=== PATIENT | female | born 1930 | race Caucasian/White ===

== ENCOUNTER 2016-10-26 06:08 | Inpatient (IN) ==
--- NOTE | 2016-10-25 21:03 | Discharge Summary ---
<Zoila Berrios - Last Filed: 10/25/16 21:00> Date of Encounter: 10/25/16 - Discharge Diagnosis (1) Left rotator cuff tear arthropathy Priority: Primary Status: Acute (2) Atrial fibrillation with rapid ventricular response Priority: Secondary Status: Chronic (3) HTN (hypertension) Priority: Secondary Status: Chronic Qualifiers: Hypertension type: essential hypertension (4) COPD bronchitis Priority: Secondary Status: Chronic (5) Chronic back pain Priority: Secondary Status: Chronic Qualifiers: Back pain location: back pain in unspecified location Back pain laterality : unspecified Qualified Code(s): M54.9 - Dorsalgia, unspecified; G89.29 - Other chronic pain (6) Systolic and diastolic CHF, chronic Priority: Secondary Status: Chronic - Discharge Medications Home Medications: Allopurinol [Zyloprim] 300 mg PO DAILY 03/23/15 [History] Cholecalciferol (Vitamin D3) [Vitamin D] 1,000 unit PO DAILY 03/23/15 [History] predniSONE [PredniSONE] 10 mg PO DAILY 03/23/15 [History] Amiodarone [Cordarone] 200 mg PO DAILY #30 tablet 04/21/15 [Rx] Albuterol Sulfate [Proair Respiclick] 2 puff IH Q4HR PRN 06/27/15 [History] Glucosamine Sulfate Dipot Chlr [Glucosamine] 500 mg PO DAILY 06/27/15 [History] Aspirin [Adult Low Dose Aspirin EC] 81 mg PO DAILY #30 tablet. 06/29/15 [Rx] Atorvastatin [Lipitor] 40 mg PO HS #30 tablet 06/29/15 [Rx] Budesonide/Formoterol 160/4.5 [Symbicort 160/4.5] 2 puff IH BIDR 09/04/15 [ History] Ipratropium/Albuterol Neb [Duoneb] 3 ml IH Q4HR PRN 09/04/15 [History] Furosemide [Lasix] 20 mg PO DAILY 10/30/15 [History] Potassium Chloride [K-Tab ER] 20 meq PO BID 10/30/15 [History] Multivitamin/Iron/Folic Acid [Centrum Complete Multivit Tab] 1 each PO DAILY [History] Docusate Sodium [Colace] 100 mg PO BID 04/20/16 [History] Ferrous Gluconate 324 mg PO BID 04/20/16 [History] Gabapentin [Neurontin] 300 mg PO 1200 04/20/16 [History] Levothyroxine Sodium [Levoxyl] 100 mcg PO DAILY 04/20/16 [History] Losartan/HCTZ [Hyzaar 50-12.5 Tablet] 1 each PO BID 04/20/16 [History] Rivaroxaban [Xarelto] 15 mg PO DAILY #0 04/21/16 [Rx] OxyCODONE Immed Rel [Roxicodone 5 MG] 5 - 10 mg PO Q6HR PRN #40 tablet 10/25/16 [Rx] Allergies/Adverse Reactions: Allergies No Known Allergies Allergy (Verified 04/20/16 09:57) Primary care physician: Tye Arellano MD - Patient Status Disposition: Home, Self-Care Condition: Good - Discharge Instructions Follow Up With: Tye Arellano MD [Primary Care Provider] - - Hospital Course Hospital course: Ms. Jay is a 86 year old female - Time Spent with Patient Total time spent providing and/or coordinating discharge services: <Ted Hopper - Last Filed: 10/27/16 06:16> Date of Encounter: 10/27/16 Time of Encounter: 06:15 - Discharge Diagnosis (1) HTN (hypertension) Priority: Secondary Status: Chronic Qualifiers: Hypertension type: unspecified secondary hypertension Qualified Code(s): I15.9 - Secondary hypertension, unspecified; I15 - Secondary hypertension (2) COPD bronchitis Priority: Secondary Status: Chronic (3) Left bundle branch block Priority: Secondary Status: Acute (4) Atrial fibrillation Priority: Secondary Status: Chronic Qualifiers: Atrial fibrillation type: unspecified Qualified Code(s): I48.91 - Unspecified atrial fibrillation (5) Systolic and diastolic CHF, acute on chronic Priority: Secondary Status: Chronic (6) Left rotator cuff tear arthropathy Priority: Primary Status: Acute Primary care physician: Tye Arellano MD - Patient Status Functional capacity at discharge: independent ambulation Overall status at discharge: patient is progressing back to baseline - Hospital Course Hospital course: Ms. Jay is a 86 year old female The patient had an uneventful postoperative course. They received antibiotics and physical therapy and were discharged in stable condition. There will follow -up in the office in 2 weeks. - Time Spent with Patient Total time spent providing and/or coordinating discharge services:
[2016-10-26] MEDS ORDERED: Albuterol 2.5 MG/3 ML NEBULIZER IH ONE ×2 (06:22→08:21)
[2016-10-26] MEDS ORDERED: CeFAZolin Pre 2,000 MG/100 ML 2,000 MG/100 ML BAG IVPB ONE (06:22)
[2016-10-26] MEDS ORDERED: Lidocaine -MPF 1% 2 ML VIAL ID ONE (06:22)
[2016-10-26] MEDS ORDERED: Ringers Solution, Lactated 1,000 ML IVC SCH ×3 (06:30→09:39)
--- NOTE | 2016-10-26 06:44 | History & Physical Report ---
Date of Encounter: 10/26/16 Time of Encounter: 06:44 24 Hour HP Update - Instructions Instructions: If the History and Physical is less than 30 days old and was completed prior to A.M. admission and or procedure and has NOT been updated on calendar day of procedure please complete this update prior to performing procedure. - Update Patient reports changes in Medical Condition: No Changes in examination, assessment, or condition: No Changes in Medication: No Preop tests/diagnostics Reviewed: Yes Surgery Remains Indicated: Yes Consent for Planned Operative Procedure(s) Verified: Yes - Pre-Operative Checklist Preoperative Checklist Indicated: No Prophylactic Antibiotic Ordered: Yes Is VTE Prophylaxis Indicated?: Yes
[2016-10-26] MEDS ORDERED: Famotidine 20 MG/2 ML VIAL IVP ONE (06:51)
[2016-10-26] MEDS ORDERED: Acetaminophen IV 1,000 MG/100 ML INFUS..BTL IVPB ONE (06:52)
[2016-10-26] MEDS ORDERED: Gabapentin 300 MG CAPSULE PO ONE (06:52)
[2016-10-26] MEDS ORDERED: *HR* Succinylcholine 200 MG/10 ML VIAL IVP ONE (06:56)
[2016-10-26] MEDS ORDERED: *HR* Phenylephrine 10 MG/ML VIAL ONE (06:56)
[2016-10-26] MEDS ORDERED: *HR* Rocuronium Bromide 50 MG/5 ML VIAL ONE (06:56)
[2016-10-26] MEDS ORDERED: Lidocaine -MPF 4% 5 ML AMPUL ONE (06:56)
[2016-10-26] MEDS ORDERED: EPHEDrine 50 MG/ML VIAL ONE (06:58)
[2016-10-26] MEDS ORDERED: Lidocaine -MPF 2% 2 ML VIAL ONE (07:01)
[2016-10-26] MEDS ORDERED: *HR* FentaNYL (PF) 100 MCG/2 ML VIAL ONE (07:01)
[2016-10-26] MEDS ORDERED: *HR* Propofol 200 MG/20 ML VIAL IVP ONE (07:02)
[2016-10-26] MEDS ORDERED: *HR* Midazolam HCl 2 MG/2 ML VIAL ONE (07:02)
--- NOTE | 2016-10-26 07:15 | Anesthesia Evaluation PreOp ---
Date of Encounter: 10/26/16 Time of Encounter: 07:10 - Past History Planned Operation: Left Total Shoulder Replacement Cardiac History: HTN, Hyperlipidemia, Pacemaker/ICD (Last checked ), Other (Ischemic Cardiomyopathy EF 25%) Pulmonary History: COPD (Home oxygen) PROMOTIONS OFFICER History: Denies Any Significant HX Other Medical History: Denies Any Significant HX Anesthesia History: No Prior Anesthetic Complications : No Alcohol Use: none Drug use: none Medications and Allergies Allopurinol [Zyloprim] 300 mg PO DAILY 03/23/15 [History] Cholecalciferol (Vitamin D3) [Vitamin D] 1,000 unit PO DAILY 03/23/15 [History] predniSONE [PredniSONE] 10 mg PO DAILY 03/23/15 [History] Amiodarone [Cordarone] 200 mg PO DAILY #30 tablet 04/21/15 [Rx] Albuterol Sulfate [Proair Respiclick] 2 puff IH Q4HR PRN 06/27/15 [History] Gabapentin [Neurontin] 600 mg PO BID PRN 06/27/15 [History] Glucosamine Sulfate Dipot Chlr [Glucosamine] 500 mg PO DAILY 06/27/15 [History] Aspirin [Adult Low Dose Aspirin EC] 81 mg PO DAILY #30 tablet. 06/29/15 [Rx] Atorvastatin [Lipitor] 40 mg PO HS #30 tablet 06/29/15 [Rx] Budesonide/Formoterol 160/4.5 [Symbicort 160/4.5] 2 puff IH BIDR 09/04/15 [ History] Ipratropium/Albuterol Neb [Duoneb] 3 ml IH Q4HR PRN 09/04/15 [History] Furosemide [Lasix] 20 mg PO DAILY 10/30/15 [History] Potassium Chloride [K-Tab ER] 20 meq PO BID 10/30/15 [History] Multivitamin/Iron/Folic Acid [Centrum Complete Multivit Tab] 1 each PO DAILY [History] Docusate Sodium [Colace] 100 mg PO BID 04/20/16 [History] Ferrous Gluconate 324 mg PO BID 04/20/16 [History] Gabapentin [Neurontin] 300 mg PO 1200 04/20/16 [History] Levothyroxine Sodium [Levoxyl] 100 mcg PO DAILY 04/20/16 [History] Losartan/HCTZ [Hyzaar 50-12.5 Tablet] 1 each PO BID 04/20/16 [History] Rivaroxaban [Xarelto] 15 mg PO DAILY #0 04/21/16 [Rx] OxyCODONE Immed Rel [Roxicodone 5 MG] 5 - 10 mg PO Q6HR PRN #40 tablet 10/25/16 [Rx] Allergies No Known Allergies Allergy (Verified 04/20/16 09:57) - Meds/Allergy Pre-op Review Medications Reviewed: Yes Allergies Reviewed: Yes Beta Blockers on Current Med List: No Anesthesia Results - Labs Laboratory Tests 10/12/16 10/12/16 15:31 15:31 Hgb 11.7 Hct 37.4 Plt Count 200 Sodium 142 Potassium 4.2 BUN 16 Creatinine 1.06 - Imaging EKG: report reviewed (Sinus Lennox) Anesthesia Exam O2 Sat Height 1.65 m Height 1.65 m Height 1.65 m Weight 74.843 kg Weight 74.843 kg Weight 74.843 kg O2 Sat by Pulse Oximetry 100 O2 Sat by Pulse Oximetry 100 O2 Sat by Pulse Oximetry 100 Vital Signs Temp Pulse Resp BP Pulse Ox 98.9 F 60 18 152/75 100 10/26/16 06:33 10/26/16 06:33 10/26/16 06:33 10/26/16 06:33 10/26/16 06:33 Height: 5'5 Weight: 165 lbs NPO (# of Hours): MN Pain Scale: 0 - HEENT Pupil (Motor): Pupils equal, EOMI Mallampati: III Teeth: Edentulous Oral Opening: Less than or equal to 3 - PROMOTIONS OFFICER LOC: Oriented PROMOTIONS OFFICER Motor: Normal RUE, Normal LUE, Normal RLE, Normal LLE, Normal Face PROMOTIONS OFFICER Sensory: Normal: RUE, LUE, RLE, LLE, Face - Cardiac Rhythm: Regular Murmur: None JVD: No Carotid Bruit: No - Pulmonary Breath Sounds: bilateral Clear Respiratory Effort: Symmetrical Anesthesia Assess/Plan ASA Score: 4 (Cardiomyopathy, COPD) Modified [place] Scale for Level of Consciousness: Cooperative, oriented, and tranquil Anesthetic Plan: General, Regional Monitoring Plan: Standard Monitors Recovery Plan: PACU (Discussed GA and RA, agrees to proceed)
[2016-10-26] MEDS ORDERED: Bupivacaine/Clonidine Syringe 1 EACH SYRINGE ONE (07:20)
[2016-10-26] MEDS ORDERED: Tetracaine/PF 20 MG/2 ML AMPUL ONE (07:24)
[2016-10-26] MEDS ORDERED: ROPIVACAINE HCL/PF 0.5% 30 ML VIAL ONE (07:24)
[2016-10-26] MEDS ORDERED: Ondansetron 4 MG/2 ML VIAL ONE (07:57)
[2016-10-26] MEDS ORDERED: Dexamethasone 4 MG/ML VIAL ONE (07:57)
--- NOTE | 2016-10-26 08:19 | Anesthesia Procedures ---
Date of Encounter: 10/26/16 Time of Encounter: 08:17 Procedures: Anesthesia - Nerve Block Procedure Date: 10/26/16 Time: 08:17 Allergies/Adv Reactions: nka Surgical Procedure: left tsr reverse Checklist: Correct Patient Identifier, Correct procedure, History checked Correct side: Left Blood Thinner: No Monitor Applied: EKG, BP, Pulse Oximetry Supplemental Oxygen via Nasal Cannula (L/min): 2 Sedation: Versed (mg): 1 Sedation: Fentanyl (mcg): 50 Indication: Post Op Analgesia Pre-op Neuro Deficits: No Block Type: Supraclavicular (scp/icb) Catheter placed: No Sterile Technique: Yes Ultrasound used: Yes Anatomy identified: Yes Visual spread of Local: Yes Neuro Stimulation: No Blood on Needle Aspiration: No Smooth Injection of Local: Yes Pain with Injection of Local: No Prep: Chlorhexadine Needle: 22 x 50 mm Stimuplex Local: Tetracaine, Ropivacaine (0.5%) Volume (cc): 30 Number of Attempts: 1 Complications: None/effective block Vitals: Vital Signs/O2 Sat/Glucose, Most Current Temp Pulse Resp BP Pulse Ox 10/26/16 06:36 98.9 F 60 18 152/75 100 10/26/16 06:33 98.9 F 60 18 152/75 100 Comments: pt tolerated procedure well. no complications. vss.
[2016-10-26] MEDS ORDERED: Naloxone 0.4 MG/ML INJ IVP PRN ×2 (08:21→09:39)
[2016-10-26] MEDS ORDERED: Ondansetron 4 MG/2 ML VIAL IVP ONE (08:21)
[2016-10-26] MEDS ORDERED: *HR* Labetalol 100 MG/20 ML MDV IVP PRN (08:21)
[2016-10-26] MEDS ORDERED: *HR* Meperidine 25 MG/ML SYRINGE IVP PRN (08:21)
[2016-10-26] MEDS ORDERED: *HR* HYDROmorphone (PF) 1 MG/ML SYRINGE IVP PRN ×2 (08:21→09:39)
--- NOTE | 2016-10-26 08:39 | Orthopedic Operative Note ---
Date of procedure: 10/26/16 Pre-op diagnosis: Left shoulder cuff tear arthropathy Post-op diagnosis: same Procedure: Procedure: Left Total Shoulder Replacment Reverse, Estimated blood loss: 100 cc Hardware: Metal and polyethylene replacement: Arthrex small glenoid baseplate, 2 4.5 screws. 1 6.5 screw, 36+4 glenosphere, 10 humeral stem, poly insert +3 Exam Under anesthesia: Full motion no instability Procedural Notes: Grade 4 arthritic changes humeral head glenoid socket irreparable tear subscap supraspinatus and infraspinatus Operative procedure: The patient was brought to the operating room and placed on the operating room table. After general anesthesia was administered the operative shoulder was examined. Findings were noted. The patient was placed in the modified beachchair position. All pressure points were padded appropriately. And the head was stabilized in the neutral position. The operative extremity was prepped and draped in the sterile surgical fashion. The patient received IV antibiotics prior to skin incision. A standard deltopectoral approach was made to the operative shoulder. Incision was made to the skin and subcutaneous tissue,hemo stasis was obtained with Bovie cautery. Using careful blunt dissection the cephalic vein was identified and mobilized medially. The deltopectoral interval was developed and the clavipectoral fascia was incised. The subscap torn and irreparable The humerus was dislocated patient noted to have irreparable tear supraspinatus tendon, and the humeral cut was made along the anatomic neck. Patient had grade 4 arthritic changes humeral head. Anterior and posterior Bankart retractors were placed to expose the glenoid. Patient had grade 4 arthritic changes glenoid socket. The glenoid guide was seated and the centering hole was made. It was reamed with the appropriate reamer. The small baseplate was seated and secured with (2) 4.5 screws and one 6.5 screw. The baseplate was irrigated and dried and the 36+4 Glenosphere was seated and secured with the Flores taper. The Flores taper was tested and found to be secure the humerus was redislocated and prepared with the diaphyseal reamers, followed by a broaching process up to the appropriate size 10 in the patient's anatomic version. The metaphyseal reamer was then utilized. Trial reduction found the shoulder to be relocatable. Trial components were removed. The appropriate 10 stem was impacted in place in the patient's anatomic version. Trial reduction found the shoulder to be relocatable and stable with the appropriate 3 Trial component was removed and the real implant was seated and secured the shoulder was reduced. The shoulder had excellent motion and excellent stability and no evidence of dislocation. The deep tissue was irrigated with pulse irrigation. The deltopectoral interval was closed with a running #1 PDS suture, subcutaneous tissue was irrigated and closed with 0 PDS suture, the skin was closed with skin jessica The patient was placed in a sterile dressing, abduction brace and extubated. The patient was then transferred to the recovery room in stable condition. Anesthesia: OLGA Surgeon: Ted Hopper Exercise Instructor: Zoila Berrios Condition: stable Disposition: PACU
[2016-10-26 09:21] LABS: Hematocrit 33.5 % (35.3-44.9); Hemoglobin 10.4 g/dL (11.5-15.4)
[2016-10-26] MEDS ORDERED: *HR* OxyCODONE Immed Rel 5 MG TABLET PO PRN ×2 (09:39)
[2016-10-26] MEDS ORDERED: MOM Conc 10 ML UD.LIQ PO PRN (09:39)
[2016-10-26] MEDS ORDERED: ceFAZolin 2,000 MG in D5% in Water 100 ML IVPB SCH (09:39)
[2016-10-26] MEDS ORDERED: Sennosides 8.6 MG TABLET PO PRN (09:39)
[2016-10-26] MEDS ORDERED: Ondansetron 4 MG/2 ML VIAL IVP PRN (09:39)
--- NOTE | 2016-10-26 10:20 | Anesthesia Evaluation Post Op ---
Date of Encounter: 10/26/16 Time of Encounter: 10:00 - Vital Signs Vital Signs: Vital Signs/O2 Sat/Glucose, Most Current Temp Pulse Resp BP Pulse Ox 10/26/16 09:25 97.8 F 59 18 148/63 100 10/26/16 09:15 59 18 152/65 99 10/26/16 09:05 59 18 99/72 100 10/26/16 08:55 98.1 F 60 18 146/67 100 10/26/16 07:37 61 98 10/26/16 06:36 98.9 F 60 18 152/75 100 10/26/16 06:33 98.9 F 60 18 152/75 100 - Lungs Lungs: Clear Ascult./Percussion - Airway Airway: Non-obstructed - Cardiovascular Regular Rate - Mental Status Mental Status: Alert & Oriented, Answers Appropriately - Pain Pain Scale: 0 - Nausea Vomiting Nausea Vomiting: Not Present - Hydration Hydration: Tolerates oral liquids - Discharge PostOp Status: Transfer Patient to floor
[2016-10-26] MEDS: *HR* Amiodarone 200 MG TABLET PO SCH (10:41)
[2016-10-26] MEDS: Losartan/HCTZ 50-12.5 TABLET PO SCH ×2 (10:41→20:10)
[2016-10-26] MEDS: Budesonide/Formoterol 160/4.5 MDI IH SCH ×2 (11:22→20:30)
[2016-10-26] MEDS: Furosemide 20 MG TABLET PO SCH (11:50)
[2016-10-26] MEDS: Aspirin Enteric Coated 81 MG Tablet PO SCH (11:55)
[2016-10-26] MEDS: GLUCOSAMINE SULFATE DIPOT CHLR 500 MG PO SCH (11:56)
[2016-10-26] MEDS: Multivit/Ca/Min/Fe/FA 1 TAB TABLET PO SCH (11:57)
[2016-10-26] MEDS: predniSONE 5 MG TABLET PO SCH (11:57)
[2016-10-26] MEDS: Cholecalciferol (D-3) 1,000 UNIT TABLET PO SCH (11:57)
[2016-10-26] MEDS ORDERED: Gabapentin 300 MG CAPSULE PO SCH (12:00)
[2016-10-26] MEDS ORDERED: Ipratropium/Albuterol Neb 3 ML IH PRN (12:00)
[2016-10-26] MEDS: ceFAZolin 2,000 MG in D5% in Water 100 ML IVPB SCH ×2 (14:51→23:01)
[2016-10-26] MEDS: *HR* Rivaroxaban 15 MG TABLET PO SCH (16:34)
[2016-10-26] MEDS ORDERED: D5% in Water 1,000 ML IVC PRN (18:38)
[2016-10-26] MEDS ORDERED: *HR* Dextrose 50 % in Water (Syg) 50 ML SYRINGE IVP PRN (18:38)
[2016-10-26] MEDS ORDERED: Dextrose Gel 15 GM PO PRN ×2 (18:38)
[2016-10-26] MEDS ORDERED: Insulin LISPRO 300 UNITS/3 ML VIAL SQ SCH (21:00)
[2016-10-26] MEDS ORDERED: Temazepam 15 MG CAPSULE PO PRN (21:00)
[2016-10-27 05:43] LABS: Hematocrit 30.4 % (35.3-44.9); Hemoglobin 9.8 g/dL (11.5-15.4)
--- NOTE | 2016-10-27 06:16 | Orthopedics Progress Note ---
Date of Encounter: 10/27/16 Time of Encounter: 06:16 - Assessment and Plan (1) HTN (hypertension) Current Visit: No Status: Chronic Qualifiers: Hypertension type: unspecified secondary hypertension Qualified Code(s): I15.9 - Secondary hypertension, unspecified; I15 - Secondary hypertension (2) COPD bronchitis Current Visit: No Status: Chronic (3) Left bundle branch block Current Visit: No Status: Acute (4) Atrial fibrillation Current Visit: No Status: Chronic Qualifiers: Atrial fibrillation type: unspecified Qualified Code(s): I48.91 - Unspecified atrial fibrillation (5) Systolic and diastolic CHF, acute on chronic Current Visit: No Status: Chronic (6) Left rotator cuff tear arthropathy Current Visit: Yes Status: Acute Subjective Interval history: Patient was seen this morning doing well without complaints. Afebrile vital signs stable. Operative extremity: Neurovascularly intact Dressing clean dry and intact Calves nontender Assessment and plan: Continue with postoperative care Discharged today Objective Vital signs: Vital Signs Temp Pulse Resp BP Pulse Ox 10/27/16 03:36 98.7 F 59 18 148/64 99 10/26/16 23:38 98.4 F 60 17 146/66 96 10/26/16 20:30 16 98 10/26/16 19:35 98.7 F 60 18 130/61 98 10/26/16 15:32 98.2 F 60 18 137/58 97 10/26/16 12:05 97.7 F 60 18 134/73 97 10/26/16 11:22 18 99 10/26/16 11:19 97.8 F 60 16 151/74 10/26/16 10:30 97.5 F L 60 16 148/85 99 10/26/16 10:00 97.6 F 98 16 137/77 94 10/26/16 09:35 97.5 F L 60 16 158/77 98 10/26/16 09:25 97.8 F 59 18 148/63 100 10/26/16 09:15 59 18 152/65 99 10/26/16 09:05 59 18 99/72 100 10/26/16 08:55 98.1 F 60 18 146/67 100 10/26/16 07:37 61 98 10/26/16 06:36 98.9 F 60 18 152/75 100 06/05/17 06:33 98.9 F 60 18 152/75 100 Intake and Output 10/26/16 10/26/16 10/27/16 15:59 23:59 07:59 Intake Total 360 / 360 440 / 440 150 / 150 Output Total 100 / 100 150 / 150 Balance 260 / 260 290 / 290 150 / 150 Intake: IV Fluids 200 / 200 Ancef 2,000 MG In 200 / 200 Dextrose 5% 100 ML @ 200 mls/hr IVPB Q8HR ERNESTINA Rx#: [id number] Oral 360 / 360 240 / 240 150 / 150 Output: Urine 0 / 0 150 / 150 Estimated Blood Loss 100 / 100 Other: Meal Lunch Percent of Meal Consumed 40% # Voids 1 1 Blood Glucose* 300 - Labs CBC & BMP: 10/27/16 04:34 Labs: Abnormal lab results Hgb 9.8 g/dL (11.5-15.4) L 10/27/16 04:34 Hct 30.4 % (35.3-44.9) L 10/27/16 04:34 POC Glucose 300 (58-89) H 10/26/16 21:10 - VTE Documentation of Mechanical Device: Venous foot pump, device Consult Discharge Plan - Plan Referrals: Tye Arellano MD [Primary Care Provider] -
[2016-10-27 07:13] VITALS: BP 165/68
[2016-10-27] MEDS ORDERED: Insulin LISPRO 300 UNITS/3 ML VIAL SQ SCH (07:30)
[2016-10-27] MEDS: Losartan/HCTZ 50-12.5 TABLET PO SCH (08:01)
[2016-10-27] MEDS: Cholecalciferol (D-3) 1,000 UNIT TABLET PO SCH (08:02)
[2016-10-27] MEDS: predniSONE 5 MG TABLET PO SCH (08:02)
[2016-10-27] MEDS: Multivit/Ca/Min/Fe/FA 1 TAB TABLET PO SCH (08:02)
[2016-10-27] MEDS: *HR* Amiodarone 200 MG TABLET PO SCH (08:02)
[2016-10-27] MEDS: Aspirin Enteric Coated 81 MG Tablet PO SCH (08:02)
[2016-10-27] MEDS: *HR* Rivaroxaban 15 MG TABLET PO SCH (08:02)
[2016-10-27] MEDS: Furosemide 20 MG TABLET PO SCH (08:02)
[2016-10-27] MEDS: GLUCOSAMINE SULFATE DIPOT CHLR 500 MG PO SCH (08:03)
[2016-10-27] MEDS: Budesonide/Formoterol 160/4.5 MDI IH SCH (08:24)
== END 2016-10-27 09:44 | disposition home or self-care (01) | DRG 483 ==
LOC: SAMDAY 06:08 → 3NENU 09:34
PROVIDERS: ADMIT Orthopaedic Surgery; ATTEND Orthopaedic Surgery

== ENCOUNTER 2017-01-29 10:34 | Inpatient (IN) ==
--- NOTE | 2017-01-29 13:40 | Electrophysiology Consult Note ---
Date of Encounter: 01/29/17 Time of Encounter: 13:00 Assessment and Plan (1) ICD (implantable cardioverter-defibrillator) in place Current Visit: Yes Status: Chronic Per Electrophysiology: -Known bi-ventricular ICD. -Concern for malfunctioning device. -Device check today with normal functioning device. Device check reviewed with Dr.John Nelson. -Strips from [place] reviewed with and felt to be possible paced/ underlying rhythm versus artifact. -Will check ECG. -No further recommendations regarding ICD. -Patient has follow up device check 02/24/2017. (2) Systolic congestive heart failure, NYHA class 2 Current Visit: Yes Status: Acute Per cardiology: -Known ischemic cardiomyopathy with LVEF 25-30%. -Last [facility] 06/2015 with 20% distal left main, 99% mid LAD with BMS placed, 30% distal LAD, 30% diagonal 1, 30% proximal circumflex, 20% mid circumflex, 30% OM1 , 30% mid RCA. -Patient with increased shortness of breath. Patient denies edema or increased weights. Per review of notes, weight today 166 pounds, was 201 08/2016. Reports has been attempting to lose weight. -Chest x-ray with increased vascular congestion and right pleural effusion. BNP 3000. -Was given IV lasix in [place]. Patient states shortness of breath has improved since then. -Patient admits to some chest pressure when lying flat, suspect related to fluid overload. -Started on lasix IV BID. -Recommend continuing diueresis. -Strict I/O, daily weights, fluid restriction. -CHF education re-inforced. -General cardiology will continue to monitor. EP will sign off. Qualifiers: Congestive heart failure chronicity: acute on chronic Qualified Code(s): I50.23 - Acute on chronic systolic (congestive) heart failure Discussion w patient/family: The assessment and plan as outlined above was discussed with the patient and/or family members who expressed understanding and agreement. All questions were answered. Thank you for involving us in the care of your patient. Please call with any questions. Discussed and reviewed with Dr.John Nelson. History of Present Illness Consult date: 01/29/17 Consult reason: possible device malfunction Chief complaint: shortness of breath History of present illness: Ms. Jay is a 86 year old female with a relevant past medical history of CAD s/ p PCI 2016, ischemic cardiomyopathy with BIV ICD, HTN, DM, hyperlipidemia, COPD , O2 dependent at home, atrial fibrillation, anemia. Patient presented to [facility] for complaints of shortness of breath. Patient states she wears O2 at at times at home. States this morning even with O2, she was short of breath. Patient admitted to some chest pressure while laying flat, states started while in ER. Patient states pain is relieved by sitting up. While at [place] ER, patient was thought to be bradycardic. EP has been asked to evaluate patient due to possible malfunction of ICD. Past Med Surg Social Fam HX - Past Medical History Attestation: Yes The following information was validated with the patient. Source: patient, old records reviewed, obtained from family Medical history: arthritis, atrial fibrillation, cardiomyopathy, CHF, COPD, coronary artery disease, diabetes, hyperlipidemia, hypertension, myocardial infarction, thyroid disease, other Psychiatric history: no psych history - Past Surgical History Surgical History: angioplasty/stent, appendectomy, cataract, cholecystectomy, hysterectomy, pacemaker/AICD, other - Social History Smoking Status: Former smoker Smokeless Tobacco Status: No Alcohol use: none Drug use: none - Family History Mother Living Status: Age at : 46 Hx Family Cardiac Disorders: Yes (HTN, CVA) Hx Family Neurologic Disorders: Yes (Status post CVA) Father Living Status: Hx Family Cardiac Disorders: Yes (HTN) Sister Living Status: Hx Family Cancer: Yes Hx Family Neuromuscular Disorders: Yes (History of Parkinson's disease) Medications and Allergies Allopurinol [Zyloprim] 300 mg PO DAILY 03/23/15 [History] Amiodarone [Cordarone] 200 mg PO DAILY #30 tablet 04/21/15 [Rx] Albuterol Sulfate [Proair Respiclick] 2 puff IH Q4HR PRN 06/27/15 [History] Glucosamine Sulfate Dipot Chlr [Glucosamine] 500 mg PO DAILY 06/27/15 [History] Aspirin [Adult Low Dose Aspirin EC] 81 mg PO DAILY #30 tablet. 06/29/15 [Rx] Atorvastatin [Lipitor] 40 mg PO HS #30 tablet 06/29/15 [Rx] Budesonide/Formoterol 160/4.5 [Symbicort 160/4.5] 2 puff IH BIDR 09/04/15 [ History] Ipratropium/Albuterol Neb [Duoneb] 3 ml IH Q4HR PRN 09/04/15 [History] Furosemide [Lasix] 20 mg PO DAILY 10/30/15 [History] Multivitamin/Iron/Folic Acid [Centrum Complete Multivit Tab] 1 each PO DAILY [History] Gabapentin [Neurontin] 300 mg PO 5XD 04/20/16 [History] Rivaroxaban [Xarelto] 15 mg PO DAILY #0 04/21/16 [Rx] Tramadol HCl [Ultram] 50 mg PO QID PRN 10/27/16 [History] predniSONE [PredniSONE] 10 mg PO DAILY 10/27/16 [History] 3 Allergy/AdvReac Type Severity Reaction Status Date / Time No Known Allergies Allergy Verified 10/27/16 09:38 All Systems Review: A 10-system review of systems was performed and is negative for pertinent findings except as documented above in the HPI. - Cardiovascular Cardiovascular: as per HPI, dyspnea on exertion Physical Examination Vital Signs, Last 4 Hours Temp Pulse Resp BP Pulse Ox 01/29/17 12:42 96 01/29/17 12:16 98.2 F 68 16 159/82 95 General: Conversant, No Apparent Distress HEENT: Atraumatic, Normocephaly, Mucus Membranes Moist Neck: No JVD, Normal carotid pulses Cardiac: Reg Rate and Rhythm, Normal S1 and S2, No Murmur Lungs: Normal Breath Sounds, No Wheeze, Rales, Rhonchi Neuro: Alert and responsive, No focal deficits noted Abdomen: Soft, Non-Tender Skin: No rashes noted on visualized skin Musculoskeletal: No Chest Wall Tenderness Extremities: No Clubbing, No Cyanosis, No Edema, Normal Pulses Results Laboratory Tests 01/29/17 01/29/17 01/29/17 08:00 08:00 08:00 Hgb 10.5 L Creatinine 0.92 B-Natriuretic Peptide 3058 H XR/XR chest 1V portable IMPRESSION: 1. Cardiomegaly with vascular congestion and interstitial infiltrates likely representing edema and congestive failure. 2. Small right pleural effusion. - Imaging and Cardiology Chest Xray: report reviewed Echo: report reviewed Cardiac cath: report reviewed - EKG Interpretation EKG results cardiology: personally reviewed (ECG with paced rhythm, HR 86.) Consult Discharge Plan - Plan Referrals: Tye Arellano MD [Primary Care Provider] -
--- NOTE | 2017-01-29 14:17 | Event Note ---
Date of Encounter: 01/29/17 Time of Encounter: 14:14 1. Symptomatic bradycardia, consider possibly biventricular AICD malfunction May continue amiodarone if okay with cardiology Cardiology recommendations appreciated, telemetry 2. Acute on chronic systolic CHF exacerbation Continue Lasix IV 20 mg twice a day, strict I's and O's and daily weight 3. A. fib, continue Xarelto 4. Diabetes type 2, continue insulin sliding scale 5. Chronic respiratory failure, continue oxygen therapy Metrazol for GI prophylaxis and Xarelto for DVT prophylaxis. Patient will be admitted for observation. Wishes to be a DNR CC arrest DNI. Time spent on this admission 40 minutes. High risk for respiratory failure H&P to be completed by ALBA Adams
[2017-01-29] MEDS ORDERED: Acetaminophen 325 MG TABLET PO PRN (15:00)
[2017-01-29] MEDS ORDERED: *HR* HYDROcodone/Acet 5/325 mg TABLET PO PRN (15:00)
[2017-01-29] MEDS ORDERED: Naloxone 0.4 MG/ML INJ IVP PRN (15:00)
[2017-01-29] MEDS ORDERED: Ondansetron 4 MG/2 ML VIAL IVP PRN (15:00)
[2017-01-29] MEDS ORDERED: *HR* Morphine 2 MG/ML SYRINGE IVP PRN (15:00)
--- NOTE | 2017-01-29 15:25 | Internal Med History&Physical ---
<Lencho Adams - Last Filed: 01/29/17 15:54> Date of Encounter: 01/29/17 Time of Encounter: 14:00 Assessment and Plan (1) Acute exacerbation of CHF (congestive heart failure) Current visit: Yes Status: Acute Patient presents with acute exacerbation of systolic CHF. Will hold patient's PO lasix and administer 20 mg IVP lasix BID to diurese. Monitor patient's I&O and daily weight. 1.5L fluid restriction daily. Patient placed on continuous cardiac telemetry, supplemental O2 with SpO2 monitoring, and falls/safety precautions ordered. Will continue patient's PO steroid. Qualifiers: Congestive heart failure type: systolic Qualified Code(s): I50.23 - Acute on chronic systolic (congestive) heart failure (2) Bradycardia Current visit: Yes Status: Acute Patient presents with symptomatic bradycardia. AICD reviewed by cardiology and found to be working with no malfunction. Patient placed on continuous cardiac telemetry. Will consider continuing patient's amiodarone based on cardiology recommendations. (3) COPD (chronic obstructive pulmonary disease) Current visit: Yes Status: Chronic Patient presents with history of chronic COPD. Will place patient on supplemental O2 with titration and SpO2 monitoring. DuoNebs Q6 scheduled. Will continue patient's PO steroid. Monitor patient and VS. Falls/safety precautions due to SOB. Qualifiers: COPD type: unspecified COPD Qualified Code(s): J44.9 - Chronic obstructive pulmonary disease, unspecified (4) Diet-controlled diabetes mellitus Current visit: Yes Status: Chronic Patient reports history of diabetes that she now controls with diet only. Blood glucose ACHS. Will add low-dose correction insulin sliding scale with hypoglycemic protocol. A1c ordered. (5) History of atrial fibrillation Current visit: Yes Status: Chronic Patient presents with history of chronic atrial fibrillation for which she received cardioversion for and placed on amiodarone which we will continue. (6) HLD (hyperlipidemia) Current visit: Yes Status: Chronic Patient presents with history of chronic hyperlipidemia. Lipid panel ordered and will continue patient's Lipitor. Qualifiers: Hyperlipidemia type: pure hypercholesterolemia Qualified Code(s): E78.00 - Pure hypercholesterolemia, unspecified; E78.0 - Pure hypercholesterolemia (7) HTN (hypertension) Current visit: Yes Status: Chronic Patient reports history of chronic HTN but is not currently on anti- hypertensive medication. Will add IVP hydralazine 10 mg PO Q6 if systolic BP > 160. Qualifiers: Hypertension type: essential hypertension Qualified Code(s): I10 - Essential (primary) hypertension (8) DVT prophylaxis Current visit: Yes Status: Acute Patient to be placed on DVT prophylaxis due to current admission protocol and bed rest status. Will continue patient's Xarelto. Internal Medicine - H&P: HPI Chief complaint: SOB/Dyspnea Admitted From: Emergency Dept Plans for Post Hospital Care: Home History of present illness: Ms. Jay is a 86 year old female with medical history of atrial fibrillation, cardiomyopathy, CHF, COPD, CAD, diabetes she attempts to control with diet, HLD , HTN, and previous NV who presents from the ED with chief complaint of shortness of breath, dyspnea, and orthopnea that has progressively become worse over the past week. Patient felt that she was bradycardic so she called the squad. She currently has pacemaker/AICD in place. Interrogation today shows that the pacemaker is working correctly and did not malfunction. Patient has a pertinent surgical history of angioplasty with 2 stents placed. Patient reports that she takes PO lasix every other day due to pedal edema resolving and her PCP changing her schedule. Patient received IVP lasix at the ED which she states helped with her breathing. She also reports that she was having chest pain in the ED and was given three doses of nitroglycerin which did not really help, but the nitro patch placed afterwards did resolve her chest pain. On examination, patient has mild wheezes on auscultation and HR is irregular. Patient's VS on admission include temperature 98.0, heart rate 66, respiratory rate 18, BP of 162/71, SPO2 97% on room air. Initial troponin 0.01. Patient's Hgb is 10.5 and HCT is 33.3 which are approximately at her usual baseline. Potassium of 3.4. Glucose of 121. AST of 52 and MALT of 56. BNP of 3058. Creatinine is currently 0.92 with GFR 58. Patient resting comfortably without signs of respiratory distress and is hemodynamically stable. Information was taken from patient, family, chart review, and previous medical records. Ms. Jay is at high risk for respiratory decline due to acute exacerbation of CHF, current symptoms, and history/risk factors and will be placed as observation status. Time spent with patient and family >50 minutes. Past Med Surg Social Fam HX - Past Medical History Source: patient, old records reviewed Medical history: arthritis, atrial fibrillation, cardiomyopathy, CHF, COPD, coronary artery disease, diabetes, hyperlipidemia, hypertension, myocardial infarction, thyroid disease, other Psychiatric history: no psych history - Past Surgical History Surgical History: angioplasty/stent, appendectomy, cataract, cholecystectomy, hysterectomy, pacemaker/AICD, other - Social History Smoking Status: Former smoker Packs per day: 10 cigarettes a day - reports quitting 30 years ago Smokeless Tobacco Status: No Alcohol use: none Drug use: none Occupational status: retired Current living situation: Home Activity Level: Uses cane/walker Recent Out of Country Travel Within the Last 8 Weeks: No Exposure or Possible Exposure to Illness During Travel: No - Family History Mother Race: Family Member Ethnicity: Non- Living Status: Age at : 46 Hx Family Cardiac Disorders: Yes (HTN, CVA) Hx Family Neurologic Disorders: Yes (Status post CVA) Father Race: Family Member Ethnicity: Non- Living Status: Age at : 70 Cause of : HTN Hx Family Cardiac Disorders: Yes (HTN) Sister Race: Family Member Ethnicity: Non- Living Status: Age at : 70 Cause of : Cervical cancer Hx Family Cancer: Yes (Cervical) Hx Family Neuromuscular Disorders: Yes (History of Parkinson's disease) Grandmother Race: Family Member Ethnicity: Non- Living Status: Age at : 94 Cause of : Old age Brother Race: Family Member Ethnicity: Non- Living Status: Age at : 75 Cause of : Emphysema Hx Family Respiratory Disorders: Yes (Emphysema) Internal Medicine - H&P: Meds Allopurinol [Zyloprim] 300 mg PO DAILY 03/23/15 [History] Amiodarone [Cordarone] 200 mg PO DAILY #30 tablet 04/21/15 [Rx] Albuterol Sulfate [Proair Respiclick] 2 puff IH Q4HR PRN 06/27/15 [History] Glucosamine Sulfate Dipot Chlr [Glucosamine] 500 mg PO DAILY 06/27/15 [History] Aspirin [Adult Low Dose Aspirin EC] 81 mg PO DAILY #30 tablet. 06/29/15 [Rx] Atorvastatin [Lipitor] 40 mg PO HS #30 tablet 06/29/15 [Rx] Budesonide/Formoterol 160/4.5 [Symbicort 160/4.5] 2 puff IH BIDR 09/04/15 [ History] Ipratropium/Albuterol Neb [Duoneb] 3 ml IH Q4HR PRN 09/04/15 [History] Furosemide [Lasix] 20 mg PO Q48H 10/30/15 [History] Multivitamin/Iron/Folic Acid [Centrum Complete Multivit Tab] 1 each PO DAILY [History] Gabapentin [Neurontin] 300 mg PO 5XD PRN 04/20/16 [History] Rivaroxaban [Xarelto] 15 mg PO DAILY #0 04/21/16 [Rx] Tramadol HCl [Ultram] 50 mg PO QID PRN 10/27/16 [History] predniSONE [PredniSONE] 10 mg PO DAILY 10/27/16 [History] Cholecalciferol (D-3) [Vitamin D] 1,000 unit PO DAILY 01/29/17 [History] Docusate [Colace] 100 mg PO DAILY PRN 01/29/17 [History] Levothyroxine [Synthroid] 112 mcg PO 0630 01/29/17 [History] Losartan Potassium [Cozaar] 50 mg PO DAILY 01/29/17 [History] Oxygen 2 l NS CONT 01/29/17 [History] 3 Allergy/AdvReac Type Severity Reaction Status Date / Time No Known Allergies Allergy Verified 10/27/16 09:38 All Systems PM: A 10-system review of systems was performed and is negative for pertinent findings except as documented above in the HPI. - Constitutional Constitutional: no chills, no fever(s), no night sweats - EENT Eyes: no change in vision, no discharge, no pain, no photophobia Ears: no ear discharge, no ear pain, no tinnitus Nose, mouth and throat: no dysphagia, no nasal discharge, no neck pain, no sore throat - Breasts Breasts: as per HPI - Cardiovascular Cardiovascular ROS IM: as per HPI, chest pain, dyspnea, dyspnea on exertion, orthopnea - Respiratory Respiratory: as per HPI, dyspnea, dyspnea on exertion - Gastrointestinal Gastrointestinal: no abdominal pain, no diarrhea, no hematemesis, no hematochezia, no melena, no nausea, no vomiting - Genitourinary Genitourinary: no change in urinary stream, no dysuria, no flank pain, no hematuria Menstruation: as per HPI, post hysterectomy - Musculoskeletal Musculoskeletal ROS IM: no numbness, no tingling - Integumentary Integumentary IM: as per HPI, unusual bruising (Due to patient taking Xarelto) - Neurological Neurological ROS: no confusion, no convulsions, no focal weakness, no numbness, no tingling, no tremor(s) - Psychiatric Psychiatric: as per HPI - Endocrine Endocrine IM: as per HPI - Hematologic/Lymphatic Hematologic/Lymphatic: no easy bruising - Allergic/Immunologic Allergic/Immunologic: as per HPI - Constitutional Vitals: Temp Pulse Resp BP Pulse Ox 98.2 F 68 16 159/82 96 01/29/17 12:16 01/29/17 12:16 01/29/17 12:16 01/29/17 12:16 01/29/17 12:42 General appearance: Present: cooperative, A&O X 3, pleasant, no acute distress, answers questions appropriately - Head Head exam: Present: atraumatic, normocephalic - Eye Eye exam: Present: PERRL, conjuntiva pink, sclera anicteric Pupils: Present: PERRL - ENT ENT exam: Present: normal exam, normal external ear exam, normal oropharynx - Neck Neck exam general surgery: Present: normal inspection, supple, trachea midline. Absent: lymphadenopathy - Respiratory Respiratory exam: Present: decreased breath sounds, wheezes - Cardiovascular Cardiovascular exam: Present: irregular rhythm - GI/Abdominal GI/Abdominal exam: Present: normal bowel sounds, soft, no peritoneal signs. Absent: distended, tenderness - Rectal Rectal exam: Present: deferred - Additional comments: exam deferred. - Extremities Exam Extremities exam: Present: warm, radial pulses palpable and symmetrical. Absent : calf tenderness, cyanotic, pedal edema - Back Exam Back exam: Present: normal inspection - Neurological Exam Neurological exam: Present: CN II-XII intact, oriented X3, no focal deficits. Absent: pronater drift, facial droop, speech deficit - Psychiatric Psychiatric exam: Present: normal affect, normal mood - Skin Skin exam: Present: dry, intact Additional comments: Bruising present from patient taking Xarelto. Internal Med - H&P Results - EKG Data Prior EKG available for review: no Interpretation IM: suggestive of ischemia EKG comments: 01/29/17 15:32 EKG dated 01/29/17 shows electronic atrial pacemaker, intraventricular conduction delay, lateral myocardial infarction (probably old). <Diomedes Mckee H - Last Filed: 01/29/17 18:24> Date of Encounter: 01/29/17 Internal Medicine - H&P: HPI History of present illness: Ms. Jay is a 86 year old female All Systems PM: A 10-system review of systems was performed and is negative for pertinent findings except as documented above in the HPI. - Constitutional Vitals: Temp Pulse Resp BP Pulse Ox 98.1 F 60 17 164/84 97 01/29/17 15:27 01/29/17 15:27 01/29/17 15:36 01/29/17 15:27 01/29/17 15:36 Internal Med - H&P Results - Labs Labs: Cardiac Enzymes 01/29/17 Range/Units 15:21 Troponin I 0.03 (0-0.03) ng/mL - Attending Attestation 1. Symptomatic bradycardia, consider possibly biventricular AICD malfunction May continue amiodarone if okay with cardiology Cardiology recommendations appreciated, telemetry 2. Acute on chronic systolic CHF exacerbation Continue Lasix IV 20 mg twice a day, strict I's and O's and daily weight 3. A. fib, continue Xarelto 4. Diabetes type 2, continue insulin sliding scale 5. Chronic respiratory failure, continue oxygen therapy Metrazol for GI prophylaxis and Xarelto for DVT prophylaxis. Patient will be admitted for observation. Wishes to be a DNR CC arrest DNI. Time spent on this admission 40 minutes. High risk for respiratory failure For this encounter, I have reviewed the [employer] or PA documentation, treatment plan, and medical decision making; and I have had face to face time with this patient.
[2017-01-29] MEDS: Ipratropium/Albuterol Neb 3 ML IH SCH ×2 (15:34→22:13)
[2017-01-29] MEDS ORDERED: Dextrose Gel 15 GM PO PRN ×2 (15:44)
[2017-01-29] MEDS ORDERED: D5% in Water 1,000 ML IVC PRN (15:44)
[2017-01-29] MEDS ORDERED: *HR* Dextrose 50 % in Water (Syg) 50 ML SYRINGE IVP PRN (15:44)
[2017-01-29] MEDS ORDERED: hydrALAZINE 10 MG TABLET PO PRN (15:52)
[2017-01-29] MEDS ORDERED: Gabapentin 300 MG CAPSULE PO PRN (16:19)
[2017-01-29] MEDS: Furosemide 20 MG/2 ML VIAL IVP SCH (18:01)
[2017-01-29] MEDS: Insulin LISPRO 300 UNITS/3 ML VIAL SQ SCH ×2 (18:01→21:08)
[2017-01-30] MEDS: Ipratropium/Albuterol Neb 3 ML IH SCH ×4 (03:51→21:18)
[2017-01-30 07:14] LABS: INR 1.2; Prothrombin Time 12.6 Seconds (9.4-12.1)
[2017-01-30 07:16] LABS: Activated Partial Thrombo Time 32.5 Seconds (26.0-36.0)
[2017-01-30 07:22] LABS: Alanine Aminotransferase 44 Units/L (0-55); Albumin 3.2 g/dL (3.5-5.0); Albumin/Globulin Ratio 1.1 (1.1-2.2); Alkaline Phosphatase 83 Units/L (38-126); Aspartate Amino Transferase 31 Units/L (5-34); BUN/Creatinine Ratio 23 (6-26); Bilirubin,Total 0.9 mg/dL (0.2-1.2); Blood Urea Nitrogen 20 mg/dL (7-20); Calcium 9.5 mg/dL (8.6-10.8); Carbon Dioxide 32 mEq/L (19-29); Chloride 101 mEq/L (98-109); Chol/HDL Ratio 2.5 (0-4.9); Cholesterol 144 mg/dL (< 200); Globulin 2.9 g/dL (2.4-3.5); Glucose 137 mg/dL (70-99); HDL Cholesterol 58 mg/dL (40-59); LDL Cholesterol,Calculated 75 mg/dL (0-99); Magnesium 1.7 mg/dL (1.6-2.6); Osmolality,Calculated 301 (280-300); Sodium 143 mEq/L (136-145); Total Protein 6.1 g/dL (6.0-8.3); Triglycerides 55 mg/dL (< 150); eGFR For African Americans > 60 (> 60); eGFR For Non-African Americans > 60 (> 60)
[2017-01-30 07:47] LABS: Basophils % 0.1 %; Hematocrit 31.5 % (35.3-44.9); Hemoglobin 9.7 g/dL (11.5-15.4); Immature Granulocytes % 0.4 % (0-4); Lymphocytes # 0.3 K/mcL (0.6-4.6); Lymphocytes % 2.6 %; Mean Corpuscular HGB Conc 30.8 g/dL (31.6-35.5); Mean Corpuscular Hemoglobin 27.9 pg (28.0-33.3); Mean Corpuscular Volume 90.5 fL (83.0-100.0); Mean Platelet Volume 12.9 fL (9.4-12.4); Monocytes # 0.5 K/mcL (0.0-1.3); Neutrophils # 9.1 K/mcL (1.6-8.9); Platelet Count 213 K/mcL (140-400); Red Blood Count 3.48 M/mcL (3.82-4.97); Red Cell Distribution Width 15.6 % (11.5-14.5); Segmented Neutrophils % 91.9 %
[2017-01-30 08:21] LABS: Hemoglobin A1C 5.7 %
--- NOTE | 2017-01-30 09:20 | Cardiology Progress Note ---
Date of Encounter: 01/30/17 Time of Encounter: 09:19 Assessment and Plan (1) Acute exacerbation of CHF (congestive heart failure) Current Visit: Yes Status: Acute Per cardiology: -Known ischemic cardiomyopathy with LVEF 25-30% echo 02/03/16. -Last [facility] 06/2015 with 20% distal left main, 99% mid LAD with BMS placed, 30% distal LAD, 30% diagonal 1, 30% proximal circumflex, 20% mid circumflex, 30% OM1 , 30% mid RCA. -Patient with increased shortness of breath. Patient denies edema or increased weights. -Chest x-ray with increased vascular congestion and right pleural effusion. BNP 3000. -Being diuresed on IV Lasix 20mg BID. Cumulative I/O net negative 2250mL. -K 3.0--being replaced. -Strict I/O, daily weights, fluid restriction. -CHF education re-inforced. -Cardiology signing off. Reconsult PRN. Recommend one more day of IV diuresis, transition to PO tomorrow. Follow-up as outpt in 2 weeks. Will coordinate. Qualifiers: Congestive heart failure type: systolic Qualified Code(s): I50.23 - Acute on chronic systolic (congestive) heart failure (2) CAD (coronary artery disease) Current Visit: Yes Status: Acute -Last [facility] 06/2015 with 20% distal left main, 99% mid LAD with BMS placed, 30% distal LAD, 30% diagonal 1, 30% proximal circumflex, 20% mid circumflex, 30% OM1 , 30% mid RCA. -ASA, Statin. Add BB. -Troponin negative x 2. -Pt denies chest pain. Qualifiers: Coronary Disease-Associated Artery/Lesion type: teller artery [place] vs. transplanted heart: teller heart Associated angina: without angina Qualified Code(s): I25.10 - Atherosclerotic heart disease of teller coronary artery without angina pectoris (3) Ischemic cardiomyopathy Current Visit: Yes Status: Acute -Known ischemic cardiomyopathy with LVEF 25-30%. -Last [facility] 06/2015 with 20% distal left main, 99% mid LAD with BMS placed, 30% distal LAD, 30% diagonal 1, 30% proximal circumflex, 20% mid circumflex, 30% OM1 , 30% mid RCA. -BiV-ICD in place, normal functioning. -Add BB and continue ARB. (4) ICD (implantable cardioverter-defibrillator) in place Current Visit: Yes Status: Chronic -Known bi-ventricular ICD. -Concern for malfunctioning device. -Device check today with normal functioning device. Device check reviewed with Dr.John Nelson. -Strips from [place] reviewed with and felt to be possible paced/ underlying rhythm versus artifact. -Follow up device check 02/24/2017 as planned. (5) Atrial fibrillation Current Visit: No Status: Chronic Continue Amiodarone and Xarelto. Qualifiers: Atrial fibrillation type: unspecified Qualified Code(s): I48.91 - Unspecified atrial fibrillation (6) NSVT (nonsustained ventricular tachycardia) Current Visit: Yes Status: Acute Brief occasional slow NSVT on tele. Known ICMP, ICD in place. K 3.0--replace. Mag 1.7. On Amiodarone 200mg daily. Add low dose BB. (7) Mitral regurgitation Current Visit: Yes Status: Acute Moderately severe MR on echo 01/2016. Continue diuresis. Follow-up as outpt. Qualifiers: Cardiac valve disease etiology: etiology unspecified Qualified Code(s): I34.0 - Nonrheumatic mitral (valve) insufficiency Discussion w patient/family: The assessment and plan as outlined above was discussed with the patient and/or family members who expressed understanding and agreement. All questions were answered. Thank you for involving us in the care of your patient. Please call with any questions. I will discuss all the above with Dr. Aden and make changes as necessary. Subjective Principal diagnosis: CHF Interval history: Pt reports feeling tired today, but that dyspnea is improved from yesterday. Denies chest pain. Objective Vital Signs, Last 4 Hours Temp Pulse Resp BP Pulse Ox 01/30/17 07:23 98.1 F 59 15 151/71 99 01/30/17 05:36 98.1 F 59 16 164/71 98 Vital Signs Temp Pulse Resp BP Pulse Ox 01/30/17 07:23 98.1 F 59 15 151/71 99 01/30/17 05:36 98.1 F 59 16 164/71 98 01/30/17 01:00 98.2 F 59 16 107/54 95 01/29/17 23:00 98.4 F 67 18 111/70 99 01/29/17 22:15 15 100 01/29/17 19:40 97 01/29/17 19:00 98.2 F 59 17 128/55 96 01/29/17 15:36 17 97 01/29/17 15:27 98.1 F 60 16 164/84 98 01/29/17 12:42 96 01/29/17 12:16 98.2 F 68 16 159/82 95 Intake and Output 01/29/17 01/30/17 01/30/17 23:59 07:59 15:59 Intake Total 0 / 0 0 / 0 Output Total 850 / 850 900 / 900 Balance -850 / -850 -900 / -900 Intake: Oral 0 / 0 0 / 0 Output: Catheter 850 / 850 900 / 900 Other: Stool Size Large Stool Consistency soft formed Stool Characteristics Tarry Stool Color Green # Voids 1 Weight 74.25 kg Blood Glucose* 203 135 Patient Weight 01/30/17 23:59 Weight 74.25 kg General: Conversant, No Apparent Distress HEENT: Atraumatic, Normocephaly, Mucus Membranes Moist Neck: No JVD, Normal carotid pulses Cardiac: Other (paced, 2/6 murmur noted) Lungs: Other (diminished) Neuro: Alert and responsive, No focal deficits noted Abdomen: Soft, Non-Tender Skin: No rashes noted on visualized skin Musculoskeletal: No Chest Wall Tenderness Extremities: No Clubbing, No Cyanosis, No Edema, Normal Pulses Results 01/30/17 05:28 01/30/17 05:28 Lab Results 01/29/17 01/29/17 01/30/17 15:21 21:01 05:28 WBC 9.9 Hgb 9.7 L Hct 31.5 L Plt Count 213 INR APTT Sodium Potassium Chloride Carbon Dioxide BUN Creatinine Glucose Calcium Magnesium Total Bilirubin AST ALT Alkaline Phosphatase Troponin I 0.03 0.02 01/30/17 01/30/17 05:28 05:28 WBC Hgb Hct Plt Count INR 1.2 APTT 32.5 Sodium 143 Potassium 3.0 L Chloride 101 Carbon Dioxide 32 H BUN 20 Creatinine 0.86 Glucose 137 H Calcium 9.5 Magnesium 1.7 Total Bilirubin 0.9 AST 31 ALT 44 Alkaline Phosphatase 83 Troponin I Short CBC 01/30/17 Range/Units 05:28 WBC 9.9 (4.3-11.1) K/mcL Hgb 9.7 L (11.5-15.4) g/dL Hct 31.5 L (35.3-44.9) % Plt Count 213 (140-400) K/mcL Neutrophils # 9.1 H (1.6-8.9) K/mcL BMP 01/30/17 Range/Units 05:28 Sodium 143 (136-145) mEq/L Potassium 3.0 L (3.5-4.5) mEq/L Chloride 101 (98-109) mEq/L Carbon Dioxide 32 H (19-29) mEq/L BUN 20 (7-20) mg/dL Creatinine 0.86 (0.57-1.11) mg/dL Glucose 137 H (70-99) mg/dL Calcium 9.5 (8.6-10.8) mg/dL Cardiac Enzymes 01/29/17 01/29/17 Range/Units 21:01 15:21 Troponin I 0.02 0.03 (0-0.03) ng/mL Liver Function 01/30/17 Range/Units 05:28 Total Bilirubin 0.9 (0.2-1.2) mg/dL AST 31 (5-34) Units/L ALT 44 (0-55) Units/L Alkaline Phosphatase 83 (38-126) Units/L Albumin 3.2 L (3.5-5.0) g/dL Active Medications Acetaminophen (Tylenol) 650 mg PO Q6HR PRN PRN Reason: Mild Pain (1-3) Stop: 07/31/17 15:01 Hydrocodone Bitart/Acetaminophen ([place] 5-325 Mg) 1 tab PO Q4HR PRN PRN Reason: Moderate Pain (4-6) Stop: 07/31/17 15:01 Last Admin: 01/29/17 18:01 Dose: 1 tab Albuterol/Ipratropium (Duoneb) 3 ml IH [id number] [facility] Stop: 07/31/17 16:01 Last Admin: 01/30/17 03:51 Dose: Not Given Allopurinol (Zyloprim) 300 mg PO DAILY [facility] Stop: 08/01/17 09:01 Amiodarone HCl (Cordarone) 200 mg PO DAILY [facility] Stop: 08/01/17 09:01 Aspirin (Aspirin Ec) 81 mg PO DAILY [facility] Stop: 08/01/17 09:01 Atorvastatin Calcium (Lipitor) 40 mg PO HS [facility] Stop: 07/31/17 21:01 Last Admin: 01/29/17 21:07 Dose: 40 mg Dextrose/Water (Dextrose 50% (Syg)) 25 ml IVP AD PRN PRN Reason: Hypoglycemia Stop: 07/31/17 15:45 Docusate Sodium (Colace) 100 mg PO DAILY PRN; Protocol PRN Reason: Constipation Stop: 07/31/17 16:20 Furosemide (Lasix) 20 mg IVP BIDDIURETIC [facility] Stop: 07/31/17 17:01 Last Admin: 01/29/17 18:01 Dose: 20 mg Gabapentin (Neurontin) 300 mg PO 5XD PRN PRN Reason: Pain Stop: 07/31/17 16:20 Glucagon (Glucagen) 1 mg IM ONCE PRN PRN Reason: Hypoglycemia Stop: 07/31/17 15:45 Glucose (Gluctose) 15 gm PO ONCE PRN PRN Reason: Hypoglycemia Stop: 07/31/17 15:45 Glucose (Gluctose) 30 gm PO ONCE PRN PRN Reason: Hypoglycemia Stop: 07/31/17 15:45 Hydralazine HCl (Hydralazine) 10 mg PO Q6HR PRN PRN Reason: Blood Pressure - High Stop: 07/31/17 15:53 Last Admin: 01/29/17 18:42 Dose: 10 mg Dextrose (Dextrose 5%) 1,000 mls @ 100 mls/hr IVC .Q10H PRN PRN Reason: HYPOGLYCEMIA Stop: 07/31/17 15:45 Potassium Chloride (Potassium Chloride 10 Meq/100ml) 10 meq in 100 mls @ 100 mls/hr IVPB Q1H [facility] Stop: 01/30/17 11:59 Insulin Human Lispro (Humalog) 0 units SQ TIDAC [facility] PRN Reason: Protocol Stop: 07/31/17 16:31 Last Admin: 01/29/17 18:01 Dose: 4 units Insulin Human Lispro (Humalog) 0 units SQ HS [facility] PRN Reason: Protocol Stop: 07/31/17 21:01 Last Admin: 01/29/17 21:08 Dose: 2 units Levothyroxine Sodium (Synthroid) 112 mcg PO 0630 [facility] Stop: 08/01/17 06:31 Last Admin: 01/30/17 06:43 Dose: 112 mcg Losartan Potassium (Cozaar) 50 mg PO DAILY [facility] Stop: 08/01/17 09:01 Morphine Sulfate (Morphine Sulfate) 2 mg IVP Q4HR PRN PRN Reason: Severe Pain (7-10) Stop: 07/31/17 15:01 Naloxone HCl (Narcan) 0.4 mg IVP Q2MIN PRN PRN Reason: Opioid Reversal Stop: 07/31/17 15:01 Ondansetron HCl (Zofran) 4 mg IVP Q8HR PRN PRN Reason: Nausea And Vomiting Stop: 07/31/17 15:01 Prednisone (Prednisone) 10 mg PO DAILY [facility] Stop: 08/01/17 09:01 Rivaroxaban (Xarelto) 15 mg PO DAILY [facility] Stop: 08/01/17 09:01 Vitamin D (Vitamin D) 1,000 unit PO DAILY [facility] Stop: 08/01/17 09:01 - EKG Interpretation EKG results cardiology: other (12 hr tele AVG HR 59, paced, brief episode of slow NSVT, longest 9 beats.) Consult Discharge Plan - Plan Referrals: Tye Arellano MD [Primary Care Provider] -
[2017-01-30] MEDS: *HR* Rivaroxaban 15 MG TABLET PO SCH (09:22)
[2017-01-30] MEDS: Furosemide 20 MG/2 ML VIAL IVP SCH ×2 (09:22→16:48)
[2017-01-30] MEDS: *HR* Amiodarone 200 MG TABLET PO SCH (09:22)
[2017-01-30] MEDS: predniSONE 10 MG TABLET PO SCH (09:22)
[2017-01-30] MEDS: Cholecalciferol (D-3) 1,000 UNIT TABLET PO SCH (09:22)
[2017-01-30] MEDS: Aspirin Enteric Coated 81 MG Tablet PO SCH (09:23)
[2017-01-30] MEDS: Insulin LISPRO 300 UNITS/3 ML VIAL SQ SCH ×4 (09:46→22:11)
--- NOTE | 2017-01-30 11:33 | Internal Med Progress Note ---
Date of Encounter: 01/30/17 Time of Encounter: 11:33 - Assessment and plan (1) Acute exacerbation of CHF (congestive heart failure) Current Visit: Yes Status: Acute Assessment and plan: Continue to have the Lasix Continue strict intake and output Continue daily weights Patient is incontinent of urine, and this may affect output documentation. Cardiology is following, inputs appreciated. Qualifiers: Congestive heart failure type: systolic Qualified Code(s): I50.23 - Acute on chronic systolic (congestive) heart failure (2) Chronic respiratory failure with hypoxia Current Visit: Yes Status: Acute Assessment and plan: Continue oxygen therapy. (3) Bradycardia Current Visit: Yes Status: Acute Assessment and plan: Patient has AICD, and her rhythm is paced. Continue to monitor. There was an initial concern for ICD malfunction, however she had had a device check done today which is said to be normal as per cardiology. (4) CAD (coronary artery disease) Current Visit: Yes Status: Chronic Assessment and plan: Troponin is negative. Patient has no chest pain. Continue aspirin, statin, and beta blockers. Qualifiers: Coronary Disease-Associated Artery/Lesion type: [place] artery [place] vs. transplanted heart: [place] heart Associated angina: without angina Qualified Code(s): I25.10 - Atherosclerotic heart disease of [place] coronary artery without angina pectoris (5) Ischemic cardiomyopathy Current Visit: Yes Status: Chronic Assessment and plan: As in coronary artery disease and ischemic cardiomyopathy. (6) Mitral regurgitation Current Visit: Yes Status: Chronic Assessment and plan: Continue current management. Qualifiers: Cardiac valve disease etiology: etiology unspecified Qualified Code(s): I34.0 - Nonrheumatic mitral (valve) insufficiency (7) NSVT (nonsustained ventricular tachycardia) Current Visit: Yes Status: Chronic Assessment and plan: Nonsustained. Patient is already on amiodarone and beta blockers. Potassium today 3.0, I have presented 80 mg. Magnesium is 1.7 and replace. (8) Diet-controlled diabetes mellitus Current Visit: Yes Status: Chronic (9) HLD (hyperlipidemia) Current Visit: Yes Status: Chronic Assessment and plan: Continue current care. Qualifiers: Hyperlipidemia type: pure hypercholesterolemia Qualified Code(s): E78.00 - Pure hypercholesterolemia, unspecified; E78.0 - Pure hypercholesterolemia (10) HTN (hypertension) Current Visit: Yes Status: Chronic Assessment and plan: Controlled, continue current medications. Qualifiers: Hypertension type: essential hypertension Qualified Code(s): I10 - Essential (primary) hypertension (11) COPD bronchitis Current Visit: Yes Status: Chronic Assessment and plan: No exacerbation at this time. (12) History of atrial fibrillation Current Visit: Yes Status: Chronic Assessment and plan: Heart rate is controlled. She is on anticoagulation with xarelto. Continue current management. - Subjective Interval history: Patient is seen and evaluated at the bedside. She is 86-year-old female with medical history of atrial fibrillation with AICD in place, ischemic cardiomyopathy with ejection fraction of 25%, atrial fibrillation, coronary artery disease, moderate to severe mitral regurgitation. She also has diabetes mellitus controlled with diet only, hyperlipidemia, and hypertension. She is admitted and being managed for acute exacerbation of her CHF and symptomatic bradycardia. She also has chronic respiratory failure and is on home oxygen. This morning she denies new complaints. She has hypokalemia on her chemistry. - Constitutional Vitals: Temp Pulse Resp BP Pulse Ox 98.1 F 59 15 151/71 99 01/30/17 07:23 01/30/17 07:23 01/30/17 07:23 01/30/17 07:23 01/30/17 07:23 General appearance: Present: cooperative, A&O X 3, pleasant, no acute distress, answers questions appropriately - Head Head exam: Present: atraumatic, normocephalic - Eye Eye exam: Present: PERRL, conjuntiva pink, sclera anicteric Pupils: Present: PERRL - Neck Neck exam general surgery: Present: supple, trachea midline. Absent: lymphadenopathy - Respiratory Respiratory exam: Present: CTAB, rales. Absent: accessory muscle use, rhonchi, wheezes - Cardiovascular Cardiovascular exam: Present: bradycardia (PACED), irregular rhythm, +S1, +S2. Absent: diastolic murmur, gallop, rubs, systolic murmur - GI/Abdominal GI/Abdominal exam: Present: normal bowel sounds, soft, no peritoneal signs. Absent: distended, tenderness - Extremities Exam Extremities exam: Present: warm, radial pulses palpable and symmetrical. Absent : calf tenderness, cyanotic, pedal edema - Neurological Exam Neurological exam: Present: alert, CN II-XII intact, oriented X3, no focal deficits. Absent: pronater drift, facial droop, speech deficit - Skin Skin exam: Present: dry, intact Internal Medicine: Result - Labs CBC & Chem 7: 01/30/17 05:28 01/30/17 05:28 Labs: Short CBC 01/30/17 Range/Units 05:28 WBC 9.9 (4.3-11.1) K/mcL Hgb 9.7 L (11.5-15.4) g/dL Hct 31.5 L (35.3-44.9) % Plt Count 213 (140-400) K/mcL Neutrophils # 9.1 H (1.6-8.9) K/mcL BMP 01/30/17 05:28 Sodium 143 Potassium 3.0 L Chloride 101 Carbon Dioxide 32 H BUN 20 Creatinine 0.86 Glucose 137 H Calcium 9.5 Cardiac Enzymes 01/29/17 01/29/17 Range/Units 15:21 21:01 Troponin I 0.03 0.02 (0-0.03) ng/mL Liver Function 01/30/17 Range/Units 05:28 Total Bilirubin 0.9 (0.2-1.2) mg/dL AST 31 (5-34) Units/L ALT 44 (0-55) Units/L Alkaline Phosphatase 83 (38-126) Units/L Albumin 3.2 L (3.5-5.0) g/dL - ABG Interpretation ABG results: PT/INR, D-dimer PT 12.6 Seconds (9.4-12.1) H 01/30/17 05:28 Consult Discharge Plan - Plan Referrals: Tye Arellano MD [Primary Care Provider] -
[2017-01-30] MEDS: Metoprolol XL (24 HR) Succ 25 MG TAB.ER.24H PO SCH (12:02)
[2017-01-30] MEDS ORDERED: Magnesium Sulfate 2 GM in D5% in Water 100 ML IVPB ONE (12:59)
[2017-01-31 03:42] LABS: Basophils % 0.1 %; Eosinophils # 0.1 K/mcL (0.0-0.6); Eosinophils % 0.6 %; Hematocrit 32.9 % (35.3-44.9); Hemoglobin 10.1 g/dL (11.5-15.4); Immature Granulocytes % 0.4 % (0-4); Lymphocytes # 0.8 K/mcL (0.6-4.6); Lymphocytes % 7.5 %; Mean Corpuscular HGB Conc 30.7 g/dL (31.6-35.5); Mean Corpuscular Hemoglobin 27.6 pg (28.0-33.3); Mean Corpuscular Volume 89.9 fL (83.0-100.0); Mean Platelet Volume 12.5 fL (9.4-12.4); Monocytes # 0.9 K/mcL (0.0-1.3); Monocytes % 8.2 %; Neutrophils # 9.1 K/mcL (1.6-8.9); Platelet Count 226 K/mcL (140-400); Red Blood Count 3.66 M/mcL (3.82-4.97); Red Cell Distribution Width 15.7 % (11.5-14.5); Segmented Neutrophils % 83.2 %
[2017-01-31] MEDS: Ipratropium/Albuterol Neb 3 ML IH SCH ×4 (03:47→21:43)
[2017-01-31 03:55] LABS: BUN/Creatinine Ratio 23 (6-26); Blood Urea Nitrogen 20 mg/dL (7-20); Calcium 9.6 mg/dL (8.6-10.8); Carbon Dioxide 34 mEq/L (19-29); Chloride 102 mEq/L (98-109); Glucose 98 mg/dL (70-99); Osmolality,Calculated 303 (280-300); Potassium 2.8 mEq/L (3.5-4.5); Sodium 145 mEq/L (136-145); eGFR For African Americans > 60 (> 60); eGFR For Non-African Americans > 60 (> 60)
[2017-01-31] MEDS ORDERED: Magnesium Sulfate 2 GM in D5% in Water 100 ML IVPB ONE (08:08)
[2017-01-31] MEDS: Insulin LISPRO 300 UNITS/3 ML VIAL SQ SCH ×4 (08:30→22:09)
--- NOTE | 2017-01-31 08:55 | Internal Med Progress Note ---
Date of Encounter: 01/31/17 Time of Encounter: 08:55 - Assessment and plan (1) Acute exacerbation of CHF (congestive heart failure) Current Visit: Yes Status: Acute Assessment and plan: I/O -2270 Continue Lasix IV Continue strict intake and output Continue daily weights Patient is incontinent of urine, and this may affect output documentation. Cardiology is following, inputs appreciated. Qualifiers: Congestive heart failure type: systolic Qualified Code(s): I50.23 - Acute on chronic systolic (congestive) heart failure (2) Chronic respiratory failure with hypoxia Current Visit: Yes Status: Chronic Assessment and plan: Continue oxygen therapy. (3) Bradycardia Current Visit: Yes Status: Acute Assessment and plan: Patient has AICD, and her rhythm is paced. Continue to monitor. There was an initial concern for ICD malfunction, however she had had a device check done 01/29 which is said to be normal as per cardiology. (4) CAD (coronary artery disease) Current Visit: Yes Status: Chronic Assessment and plan: Troponin is negative. Patient has no chest pain. Continue aspirin, statin, and beta blockers. EKG today , will follow Qualifiers: Coronary Disease-Associated Artery/Lesion type: [place] artery [place] vs. transplanted heart: [place] heart Associated angina: without angina Qualified Code(s): I25.10 - Atherosclerotic heart disease of [place] coronary artery without angina pectoris (5) Ischemic cardiomyopathy Current Visit: Yes Status: Chronic Assessment and plan: As in coronary artery disease and CHFE (6) Mitral regurgitation Current Visit: Yes Status: Chronic Assessment and plan: Continue current management. Qualifiers: Cardiac valve disease etiology: etiology unspecified Qualified Code(s): I34.0 - Nonrheumatic mitral (valve) insufficiency (7) NSVT (nonsustained ventricular tachycardia) Current Visit: Yes Status: Chronic Assessment and plan: Nonsustained. Patient is already on amiodarone and beta blockers. Continue to monitor and correct electrolytes (8) Diet-controlled diabetes mellitus Current Visit: Yes Status: Chronic Assessment and plan: FS acceptable (9) HLD (hyperlipidemia) Current Visit: Yes Status: Chronic Assessment and plan: Continue current care. Qualifiers: Hyperlipidemia type: pure hypercholesterolemia Qualified Code(s): E78.00 - Pure hypercholesterolemia, unspecified; E78.0 - Pure hypercholesterolemia (10) HTN (hypertension) Current Visit: Yes Status: Chronic Assessment and plan: Uncontrolled On metoprolol, lasix, losartan 50 Increased losartan to 100mg Continue to monitor Qualifiers: Hypertension type: essential hypertension Qualified Code(s): I10 - Essential (primary) hypertension (11) COPD bronchitis Current Visit: Yes Status: Chronic Assessment and plan: No exacerbation at this time. (12) History of atrial fibrillation Current Visit: Yes Status: Chronic Assessment and plan: Heart rate is controlled. She is on anticoagulation with xarelto. Continue current management. (13) Hypokalemia Current Visit: Yes Status: Acute Assessment and plan: K 2.8 today Replaced 80mg Repeat K p.m Schedule potassium replacement daily Check Chem and Mag a.m - Subjective Interval history: Patient is seen and evaluated at the bedside. She is 86-year-old female with medical history of atrial fibrillation with AICD in place, ischemic cardiomyopathy with ejection fraction of 25%, atrial fibrillation, coronary artery disease, moderate to severe mitral regurgitation. She also has diabetes mellitus controlled with diet only, hyperlipidemia, and hypertension. She is admitted and being managed for acute exacerbation of her CHF and symptomatic bradycardia. She also has chronic respiratory failure and is on home oxygen. This morning she denies new complaints. She has hypokalemia on her chemistry. Her blood pressure has also not been well controlled - Constitutional Vitals: Temp Pulse Resp BP Pulse Ox 98.2 F 58 15 169/71 98 01/31/17 06:01 01/31/17 06:01 01/31/17 06:01 01/31/17 06:01 01/31/17 06:01 General appearance: Present: cooperative, A&O X 3, pleasant, no acute distress, answers questions appropriately - Head Head exam: Present: atraumatic, normocephalic - Eye Eye exam: Present: PERRL, conjuntiva pink, sclera anicteric Pupils: Present: PERRL - Neck Neck exam general surgery: Present: supple, trachea midline. Absent: lymphadenopathy - Respiratory Respiratory exam: Present: rales. Absent: accessory muscle use, rhonchi, wheezes - Cardiovascular Cardiovascular exam: Present: bradycardia, irregular rhythm, +S1, +S2. Absent: diastolic murmur, gallop, rubs, systolic murmur - GI/Abdominal GI/Abdominal exam: Present: normal bowel sounds, soft, no peritoneal signs. Absent: distended, tenderness - Extremities Exam Extremities exam: Present: warm, radial pulses palpable and symmetrical. Absent : calf tenderness, cyanotic, pedal edema - Neurological Exam Neurological exam: Present: alert, CN II-XII intact, oriented X3, no focal deficits. Absent: pronater drift, facial droop, speech deficit - Skin Skin exam: Present: dry, intact Internal Medicine: Result - Labs CBC & Chem 7: 01/31/17 03:01 01/31/17 03:01 Labs: Short CBC 01/31/17 Range/Units 03:01 WBC 10.9 (4.3-11.1) K/mcL Hgb 10.1 L (11.5-15.4) g/dL Hct 32.9 L (35.3-44.9) % Plt Count 226 (140-400) K/mcL Neutrophils # 9.1 H (1.6-8.9) K/mcL BMP 01/31/17 03:01 Sodium 145 Potassium 2.8 L Chloride 102 Carbon Dioxide 34 H BUN 20 Creatinine 0.86 Glucose 98 Calcium 9.6 - ABG Interpretation ABG results: PT/INR, D-dimer PT 12.6 Seconds (9.4-12.1) H 01/30/17 05:28 Consult Discharge Plan - Plan Referrals: Tye Arellano MD [Primary Care Provider] -
[2017-01-31] MEDS: *HR* Rivaroxaban 15 MG TABLET PO SCH (09:06)
[2017-01-31] MEDS: predniSONE 10 MG TABLET PO SCH (09:06)
[2017-01-31] MEDS: Furosemide 20 MG/2 ML VIAL IVP SCH ×2 (09:06→17:52)
[2017-01-31] MEDS: Aspirin Enteric Coated 81 MG Tablet PO SCH (09:07)
[2017-01-31] MEDS: Metoprolol XL (24 HR) Succ 25 MG TAB.ER.24H PO SCH (09:07)
[2017-01-31] MEDS: *HR* Amiodarone 200 MG TABLET PO SCH (09:09)
--- NOTE | 2017-01-31 09:41 | Electrocardiograph Report ---
[place] [address] Test Date: 2017-01-29 Pat Name: Becka Jay Department: 2000 Room: 2NE16 Gender: F [employer]: : 1930 Requested By: Jer Chen Order Number: [id number] Reading MD: Jed Aden MD Measurements Intervals [place] Rate: 86 P: 212 KS: 154 QRS: 189 QRSD: 157 T: -32 QT: 389 QTc: 432 Interpretive Statements ELECTRONIC ATRIAL PACEMAKER ELECTRONIC VENTRICULAR PACEMAKER FREQUENT VENTRICULAR PREMATURE COMPLEXES Electronically Signed On 01-31-2017 9:39:54 EDT by Jed Aden MD
--- NOTE | 2017-01-31 09:43 | Electrocardiograph Report ---
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
[2017-01-31] MEDS: Cholecalciferol (D-3) 1,000 UNIT TABLET PO SCH (09:46)
[2017-02-01] MEDS: Ipratropium/Albuterol Neb 3 ML IH SCH ×2 (03:44→10:37)
[2017-02-01 05:13] LABS: BUN/Creatinine Ratio 21 (6-26); Blood Urea Nitrogen 18 mg/dL (7-20); Calcium 9.8 mg/dL (8.6-10.8); Carbon Dioxide 32 mEq/L (19-29); Chloride 100 mEq/L (98-109); Glucose 87 mg/dL (70-99); Magnesium 1.9 mg/dL (1.6-2.6); Osmolality,Calculated 297 (280-300); Sodium 143 mEq/L (136-145); eGFR For African Americans > 60 (> 60); eGFR For Non-African Americans > 60 (> 60)
[2017-02-01 07:37] VITALS: BP 149/78
[2017-02-01] MEDS: Aspirin Enteric Coated 81 MG Tablet PO SCH (09:08)
[2017-02-01] MEDS: Metoprolol XL (24 HR) Succ 25 MG TAB.ER.24H PO SCH (09:08)
[2017-02-01] MEDS: Furosemide 20 MG/2 ML VIAL IVP SCH (09:09)
[2017-02-01] MEDS: predniSONE 10 MG TABLET PO SCH (09:09)
[2017-02-01] MEDS: *HR* Amiodarone 200 MG TABLET PO SCH (09:09)
[2017-02-01] MEDS: Cholecalciferol (D-3) 1,000 UNIT TABLET PO SCH (09:09)
[2017-02-01] MEDS: *HR* Rivaroxaban 15 MG TABLET PO SCH (09:09)
--- NOTE | 2017-02-01 09:11 | Discharge Summary ---
<Lencho Mata - Last Filed: 02/01/17 09:08> Date of Encounter: 02/01/17 Time of Encounter: 09:08 - Discharge Diagnosis (1) Acute exacerbation of CHF (congestive heart failure) Priority: Primary Status: Acute Qualifiers: Congestive heart failure type: systolic Qualified Code(s): I50.23 - Acute on chronic systolic (congestive) heart failure (2) COPD (chronic obstructive pulmonary disease) Priority: Primary Status: Chronic Qualifiers: COPD type: unspecified COPD Qualified Code(s): J44.9 - Chronic obstructive pulmonary disease, unspecified (3) ICD (implantable cardioverter-defibrillator) in place Priority: Secondary Status: Chronic (4) Bradycardia Priority: Secondary Status: Acute (5) CAD (coronary artery disease) Priority: Secondary Status: Chronic Qualifiers: Coronary Disease-Associated Artery/Lesion type: [place] artery [place] vs. transplanted heart: [place] heart Associated angina: without angina Qualified Code(s): I25.10 - Atherosclerotic heart disease of [place] coronary artery without angina pectoris - Discharge Medications Prescriptions: Potassium Chloride 20 meq PO DAILY #10 Home Medications: Allopurinol [Zyloprim] 300 mg PO DAILY 03/23/15 [History] Amiodarone [Cordarone] 200 mg PO DAILY #30 tablet 04/21/15 [Rx] Albuterol Sulfate [Proair Respiclick] 2 puff IH Q4HR PRN 06/27/15 [History] Glucosamine Sulfate Dipot Chlr [Glucosamine] 500 mg PO DAILY 06/27/15 [History] Aspirin [Adult Low Dose Aspirin EC] 81 mg PO DAILY #30 tablet. 06/29/15 [Rx] Atorvastatin [Lipitor] 40 mg PO HS #30 tablet 06/29/15 [Rx] Budesonide/Formoterol 160/4.5 [Symbicort 160/4.5] 2 puff IH BIDR 09/04/15 [ History] Ipratropium/Albuterol Neb [Duoneb] 3 ml IH Q4HR PRN 09/04/15 [History] Furosemide [Lasix] 20 mg PO Q48H 10/30/15 [History] Multivitamin/Iron/Folic Acid [Centrum Complete Multivit Tab] 1 each PO DAILY [History] Gabapentin [Neurontin] 300 mg PO 5XD PRN 04/20/16 [History] Rivaroxaban [Xarelto] 15 mg PO DAILY #0 04/21/16 [Rx] Tramadol HCl [Ultram] 50 mg PO QID PRN 10/27/16 [History] predniSONE [PredniSONE] 10 mg PO DAILY 10/27/16 [History] Cholecalciferol (D-3) [Vitamin D] 1,000 unit PO DAILY 01/29/17 [History] Docusate [Colace] 100 mg PO DAILY PRN 01/29/17 [History] Levothyroxine [Synthroid] 112 mcg PO 0630 01/29/17 [History] Losartan Potassium [Cozaar] 50 mg PO DAILY 01/29/17 [History] Oxygen 2 l NS CONT 01/29/17 [History] Potassium Chloride 20 meq PO DAILY #10 02/01/17 [Rx] Allergies/Adverse Reactions: 3 Allergy/AdvReac Type Severity Reaction Status Date / Time No Known Allergies Allergy Verified 10/27/16 09:38 Procedures/tests Complete & Pending: Procedures Performed prior 72 hours Category Date Time Status ECG 12 lead ECG [ECG] Routine Y 01/29/17 08:45 Completed ECG 12 lead ECG [ECG] Routine Y 01/29/17 14:51 Ordered ECG 12 lead ECG [ECG] Routine Y 01/31/17 06:55 Completed Date of admission: 01/31/17 13:53 Primary care physician: Tye Arellano MD Consults: 01/29/17 12:40 Consult to Z[facility] Tr[facility] [CONS] Routine Reason for SW Consult: CURRENT HOME 02 W/[facility] 2L/NC CONT 01/29/17 15:04 Consult to Occupational Therapy [CONS] Routine Comment: Evaluate, develop and implement POC Reason for Consult: Patient has hx of falls. Please assess for stability/ strength/ambulation needs for post-discharge planning. 01/29/17 15:05 Consult to Physical Therapy [CONS] Routine Comment: Evaluate, develop and implement POC Reason for Consult: Patient has hx of falls. Please assess for stability/ strength/ambulation needs for post-discharge planning. Discharging clinician: Lencho Mata Anticipated date of discharge: 02/01/17 - Patient Status Disposition: Home, Self-Care Condition: Good Functional capacity at discharge: independent ambulation Overall status at discharge: patient is back to baseline - Discharge Instructions Instructions: Heart Failure (DC) Follow Up With: Tye Arellano MD [Primary Care Provider] - - Diet and Activity Activity: increase activity as tolerated Diet: advance to your usual diet Hospital course: Ms. Jay is a 86 year old female - Time Spent with Patient Total time spent providing and/or coordinating discharge services: - Constitutional Vitals: Temp Pulse Resp BP Pulse Ox 98.5 F 59 15 149/78 96 02/01/17 07:35 02/01/17 07:35 02/01/17 07:35 02/01/17 07:35 02/01/17 07:35 General appearance: Present: cooperative, A&O X 3, pleasant, no acute distress, answers questions appropriately Exam: General: Patient alert, awake, oriented 3, interactive, in no acute distress HEENT: Normocephalic, atraumatic, pupils equal reactive to light, nasal cavity patent and open septum median position, oral mucosa moist, uvula midline, neck supple trachea midline no palpable lymphadenopathy, no thyromegaly. Chest: Symmetric bilateral correlating with respiratory effort, effort nonlabored. Cardiac: Regular rate and rhythm, 2/6 systolic ejection murmur, bilateral bruits appreciated on auscultation, Radial pulses 2+ bilateral, posterior tibial and dorsal pedal pulses 2+ bilateral. Respiratory: Clear to auscultation all lung connell Abdomen: Soft, nontender, positive bowel sounds, no palpable masses appreciated on examination Extremities: Symmetric bilateral, bilateral lower extremities without erythema or edema patient moving all 4 extremities spontaneously. Neurologic: No focal deficits appreciated on examination. Face symmetric, muscle strength symmetric bilateral upper and lower extremities. <Hayder Melton - Last Filed: 02/01/17 14:20> Date of Encounter: 02/01/17 - Discharge Diagnosis (1) Acute exacerbation of CHF (congestive heart failure) Status: Acute Qualifiers: Congestive heart failure type: systolic Qualified Code(s): I50.23 - Acute on chronic systolic (congestive) heart failure (2) Chronic respiratory failure with hypoxia Status: Chronic (3) Bradycardia Status: Acute (4) CAD (coronary artery disease) Status: Chronic Qualifiers: Coronary Disease-Associated Artery/Lesion type: [place] artery [place] vs. transplanted heart: [place] heart Associated angina: without angina Qualified Code(s): I25.10 - Atherosclerotic heart disease of [place] coronary artery without angina pectoris (5) Ischemic cardiomyopathy Status: Chronic (6) Mitral regurgitation Status: Chronic Qualifiers: Cardiac valve disease etiology: etiology unspecified Qualified Code(s): I34.0 - Nonrheumatic mitral (valve) insufficiency (7) NSVT (nonsustained ventricular tachycardia) Status: Chronic (8) Diet-controlled diabetes mellitus Status: Chronic (9) HLD (hyperlipidemia) Status: Chronic Qualifiers: Hyperlipidemia type: pure hypercholesterolemia Qualified Code(s): E78.00 - Pure hypercholesterolemia, unspecified; E78.0 - Pure hypercholesterolemia (10) HTN (hypertension) Status: Chronic Qualifiers: Hypertension type: essential hypertension Qualified Code(s): I10 - Essential (primary) hypertension (11) COPD bronchitis Status: Chronic (12) History of atrial fibrillation Status: Chronic (13) Hypokalemia Status: Acute Procedures/tests Complete & Pending: Procedures Performed prior 72 hours Category Date Time Status ECG 12 lead ECG [ECG] Routine Y 01/29/17 14:51 Ordered ECG 12 lead ECG [ECG] Routine Y 01/31/17 06:55 Completed Date of admission: 01/31/17 13:53 Primary care physician: Tye Arellano MD Consults: 01/29/17 12:40 Consult to [facility] [CONS] Routine Reason for SW Consult: CURRENT HOME 02 W/[facility] 2L/NC CONT 01/29/17 15:04 Consult to Occupational Therapy [CONS] Routine Comment: Evaluate, develop and implement POC Reason for Consult: Patient has hx of falls. Please assess for stability/ strength/ambulation needs for post-discharge planning. 01/29/17 15:05 Consult to Physical Therapy [CONS] Routine Comment: Evaluate, develop and implement POC Reason for Consult: Patient has hx of falls. Please assess for stability/ strength/ambulation needs for post-discharge planning. Hospital course: Ms. Jay is a 86 year old female - Time Spent with Patient Total time spent providing and/or coordinating discharge services: - Constitutional Vitals: Temp Pulse Resp BP Pulse Ox 98.5 F 59 15 149/78 96 02/01/17 07:35 02/01/17 07:35 02/01/17 07:35 02/01/17 07:35 02/01/17 07:35 - Attending Attestation I have seen and independently examined this patient on 9/11/17 and discussed plan of care with the patient and resident physician 86 YO F with Afib on AC, with AICD, CHFrEF, Ischemic CMP, HTN, diet-controlled DM She was admitted for CHF exacerbation. She has been adequately diuressed She developed bradycardia prior to arrival, her device was checked and stated to be working per cardiology She also had hypokalemia which responded to replacements This morning, she denied any new complains, her chest is clear to auscultation She has chronic hypoxic respiratory failure and is on her dose of home O2 and is ambulatory Physical exam is unremarkable Safe to discharge patient home on diuresis and potassium supplements Follow up with PCP and recheck Chem in 1 week
[2017-02-01] MEDS: Insulin LISPRO 300 UNITS/3 ML VIAL SQ SCH (09:24)
--- NOTE | 2017-02-01 17:40 | Electrocardiograph Report ---
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 : 1930 Requested By: Hayder Melton Order Number: [id number] Reading MD: Esau Alexis MD Measurements Intervals [place] Rate: 59 P: -81 SD: 174 QRS: 86 QRSD: 145 T: -10 QT: 432 QTc: 432 Interpretive Statements ELECTRONIC ATRIAL PACEMAKER ELECTRONIC VENTRICULAR PACEMAKER ABNORMAL RHYTHM ECG Electronically Signed On 02-01-2017 17:38:53 EDT by Esau Alexis MD
== END 2017-02-01 10:50 | disposition home or self-care (01) | DRG 292 ==
LOC: 2NENU → SUATTDRO 11:56
PROVIDERS: ADMIT Internal Medicine; ATTEND Internal Medicine

== ENCOUNTER 2017-06-25 14:38 | Inpatient (IN) ==
--- NOTE | 2017-06-25 17:19 | Internal Med History&Physical ---
Date of Encounter: 06/25/17 Time of Encounter: 17:12 Assessment and Plan (1) ARIEL (acute kidney injury) Current visit: Yes Status: Acute Probably due to overdiuresis with old glasses from a gentle IV hydration overnight (2) Hypotension Current visit: Yes Status: Acute due to hypovolemia will adjust medication and hold Lasix Qualifiers: Hypotension type: unspecified hypotension type Qualified Code(s): I95.9 - Hypotension, unspecified (3) Weakness Current visit: No Status: Acute . due to hypotension (4) CAD (coronary artery disease) Current visit: No Status: Chronic Prior stent to LAD currently no chest pain troponin is mildly elevated Qualifiers: Coronary Disease-Associated Artery/Lesion type: [place] artery [place] vs. transplanted heart: [place] heart Associated angina: without angina Qualified Code(s): I25.10 - Atherosclerotic heart disease of [place] coronary artery without angina pectoris (5) COPD (chronic obstructive pulmonary disease) Current visit: No Status: Chronic Chronic withexacerbation Qualifiers: COPD type: unspecified COPD Qualified Code(s): J44.9 - Chronic obstructive pulmonary disease, unspecified (6) HLD (hyperlipidemia) Current visit: No Status: Chronic Chronic Qualifiers: Hyperlipidemia type: pure hypercholesterolemia Qualified Code(s): E78.00 - Pure hypercholesterolemia, unspecified; E78.0 - Pure hypercholesterolemia (7) Ischemic cardiomyopathy Current visit: No Status: Chronic Patient has ICD and well compensated Internal Medicine - H&P: HPI Chief complaint: wtransfer from [place] Admitted From: Hospital to Hospital Transfer Plans for Post Hospital Care: Home History of present illness: Ms. Jay is a 87 year old female Patient with history of cardiomyopathy of 20%, CAD had a stent to the LAD, COPD , diabetes, atrial fibrillation, high cholesterol and hypertension patient also has ICD placement patient recently in the hospital was stated on IV Lasix and has have been adjusted with higher doses. patient has been feeling weak shaky and somewhat dizzy and lightheaded especially when she is standing up or tried to walk and today had gotten worse with leg weakness on ambulation she went to [place] emergency room blood pressure was 80 systolic given IV fluid. Went up to 87/43 and a 111/68 and then was transferred here for further evaluation she is not having any chest pain, no PND or orthopnea head CT was negative for any acute process UA was positive for UTI on arrival patient says she feels much better after getting some IV hydration she received at least 500 bolus will be admitted with hold her Lasix for now. She is over diuresed her creatinine has also increased from normal to 1.5 Past Med Surg Social Fam HX - Past Medical History Medical history: arthritis, atrial fibrillation, cardiomyopathy, CHF, COPD, coronary artery disease, diabetes, hyperlipidemia, hypertension, myocardial infarction, thyroid disease, other Psychiatric history: no psych history - Past Surgical History Surgical History: angioplasty/stent, appendectomy, cataract, cholecystectomy, hysterectomy, pacemaker/AICD, other - Social History Smoking Status: Former smoker Smokeless Tobacco Status: No Alcohol use: none Drug use: none - Family History Grandmother Family Member Ethnicity: Non- Living Status: Brother Family Member Ethnicity: Non- Living Status: Hx Family Respiratory Disorders: Yes (Emphysema) Mother Family Member Ethnicity: Non- Living Status: Hx Family Cardiac Disorders: Yes (HTN, CVA) Hx Family Neurologic Disorders: Yes (Status post CVA) Father Family Member Ethnicity: Non- Living Status: Hx Family Cardiac Disorders: Yes (HTN) Sister Family Member Ethnicity: Non- Living Status: Hx Family Cancer: Yes (Cervical) Hx Family Neuromuscular Disorders: Yes (History of Parkinson's disease) Internal Medicine - H&P: Meds Allopurinol [Zyloprim] 300 mg PO DAILY 06/25/17 [History] Amiodarone [Cordarone] 200 mg PO DAILY 06/25/17 [History] Aspirin [Lo-Dose Aspirin EC] 81 mg PO DAILY 06/25/17 [History] Atorvastatin [Lipitor] 40 mg PO HS 06/25/17 [History] Cholecalciferol (D-3) [Vitamin D] 1,000 unit PO DAILY 06/25/17 [History] Ferrous Gluconate 324 mg PO BID 06/25/17 [History] Furosemide [Lasix] 20 mg PO DAILY 06/25/17 [History] Gabapentin [Neurontin] 300 mg PO TID 06/25/17 [History] Levothyroxine [Synthroid] 112 mcg PO 0630 06/25/17 [History] Losartan Potassium [Cozaar] 50 mg PO DAILY 06/25/17 [History] PrednisoLONE [Millipred] 10 mg PO DAILY 06/25/17 [History] Rivaroxaban [Xarelto] 15 mg PO DAILY 06/25/17 [History] Spironolactone [Aldactone] 25 mg PO DAILY 06/25/17 [History] Tramadol HCl [Ultram] 50 mg PO TID 06/25/17 [History] hydrALAZINE [HydrALAZINE] 25 mg PO BID 06/25/17 [History] 3 Allergy/AdvReac Type Severity Reaction Status Date / Time No Known Allergies Allergy Verified 04/24/17 09:45 All Systems PM: A 10-system review of systems was performed and is negative for pertinent findings except as documented above in the HPI. - Constitutional Constitutional: fatigue, lethargy - EENT Eyes: no change in vision, no discharge, no pain, no photophobia Ears: no ear discharge, no ear pain, no tinnitus Nose, mouth and throat: no dysphagia, no nasal discharge, no neck pain, no sore throat - Cardiovascular Cardiovascular ROS IM: lightheadedness - Respiratory Respiratory: no cough, no dyspnea, no wheezing, no excessive phlegm production - Gastrointestinal Gastrointestinal: no abdominal pain, no diarrhea, no hematemesis, no hematochezia, no melena, no nausea, no vomiting - Constitutional Vitals: Temp Pulse Resp BP Pulse Ox 98.5 F 60 18 111/66 98 06/25/17 16:13 06/25/17 16:13 06/25/17 16:13 06/25/17 16:13 06/25/17 16:13 - Head Head exam: Present: atraumatic, normocephalic - Eye Eye exam: Present: PERRL, conjuntiva pink, sclera anicteric Pupils: Present: PERRL - Neck Neck exam general surgery: Present: supple, trachea midline. Absent: lymphadenopathy - Respiratory Respiratory exam: Present: CTAB. Absent: accessory muscle use, rales, rhonchi, wheezes - Cardiovascular Cardiovascular exam: Present: RRR, +S1, +S2. Absent: diastolic murmur, gallop, rubs, systolic murmur - GI/Abdominal GI/Abdominal exam: Present: normal bowel sounds, soft, no peritoneal signs. Absent: distended, tenderness - Extremities Exam Extremities exam: Present: warm, radial pulses palpable and symmetrical. Absent : calf tenderness, cyanotic, pedal edema - Neurological Exam Neurological exam: Present: CN II-XII intact, oriented X3, no focal deficits. Absent: pronater drift, facial droop, speech deficit - Skin Skin exam: Present: dry, intact
[2017-06-25] MEDS ORDERED: Naloxone 0.4 MG/ML INJ IVP PRN (17:25)
[2017-06-25] MEDS: 0.9 % Sodium Chloride 1,000 ML IVC SCH (17:54)
[2017-06-25] MEDS: traMADol 50 MG TABLET PO SCH (22:13)
[2017-06-25] MEDS: hydrALAZINE 25 MG TABLET PO SCH (22:13)
[2017-06-25] MEDS: Gabapentin 300 MG CAPSULE PO SCH (22:13)
[2017-06-26 01:45] LABS: Calcium 9.2 mg/dL (8.6-10.3); Potassium 4.4 mEq/L (3.5-5.1)
--- NOTE | 2017-06-26 06:29 | Event Note ---
Date of Encounter: 06/26/17 Time of Encounter: 06:20 Report by medical laboratory assistant called for Blood culture positive for strep. Review chart pt has UTI. Will start rocephin iv 1000mg daily. Repeat Blood culture and waiting for final report and sensitivity
[2017-06-26] MEDS ORDERED: Spironolactone 25 MG TABLET PO SCH (09:00)
[2017-06-26] MEDS: traMADol 50 MG TABLET PO SCH ×3 (09:47→21:04)
[2017-06-26] MEDS: hydrALAZINE 25 MG TABLET PO SCH (09:48)
[2017-06-26] MEDS: predniSONE 10 MG TABLET PO SCH (09:48)
[2017-06-26] MEDS: *HR* Rivaroxaban 15 MG TABLET PO SCH (09:48)
[2017-06-26] MEDS: *HR* Amiodarone 200 MG TABLET PO SCH (09:48)
[2017-06-26] MEDS: Gabapentin 300 MG CAPSULE PO SCH ×3 (09:48→21:04)
[2017-06-26] MEDS: cefTRIAXone 1,000 MG in Water for inj. (sterile) 20 ML 10 ML IVP SCH (09:48)
[2017-06-26] MEDS: Cholecalciferol (D-3) 1,000 UNIT TABLET PO SCH (09:48)
[2017-06-26] MEDS: Aspirin Enteric Coated 81 MG Tablet PO SCH (09:48)
[2017-06-26] MEDS: 0.9 % Sodium Chloride 1,000 ML IVC SCH (13:33)
--- NOTE | 2017-06-26 16:07 | Electrophysiology Consult Note ---
Date of Encounter: 06/26/17 Time of Encounter: 16:04 Assessment and Plan (1) Elevated troponin Current Visit: Yes Status: Acute Likely secondary to ARF and hypotension, doubt ACS. Discussion w patient/family: The assessment and plan as outlined above was discussed with the patient and/or family members who expressed understanding and agreement. All questions were answered. Thank you for involving us in the care of your patient. Please call with any questions. History of Present Illness Consult date: 06/26/17 Requesting physician: Johana Hernandez Consult reason: Abnormal troponin Chief complaint: Shaking History of present illness: Ms. Jay is a 87 year old female with known CHF, CM, S/P BIV-ICD. Presents with hypotension ARF thought secondary to overdiureis. Troponin noted to be mildly elevated. SHe denies chest pain. Past Med Surg Social Fam HX - Past Medical History Medical history: arthritis, atrial fibrillation, cardiomyopathy, CHF, COPD, coronary artery disease, diabetes, hyperlipidemia, hypertension, myocardial infarction, thyroid disease, other Psychiatric history: no psych history - Past Surgical History Surgical History: angioplasty/stent, appendectomy, cataract, cholecystectomy, hysterectomy, pacemaker/AICD, other - Social History Smoking Status: Former smoker Smokeless Tobacco Status: No Alcohol use: none Drug use: none - Family History Grandmother Family Member Ethnicity: Non- Living Status: Brother Family Member Ethnicity: Non- Living Status: Hx Family Respiratory Disorders: Yes (Emphysema) Mother Family Member Ethnicity: Non- Living Status: Hx Family Cardiac Disorders: Yes (HTN, CVA) Hx Family Neurologic Disorders: Yes (Status post CVA) Father Family Member Ethnicity: Non- Living Status: Hx Family Cardiac Disorders: Yes (HTN) Sister Family Member Ethnicity: Non- Living Status: Hx Family Cancer: Yes (Cervical) Hx Family Neuromuscular Disorders: Yes (History of Parkinson's disease) Medications and Allergies Albuterol Sulfate [Ventolin Hfa] 2 puff IH Q4H PRN 06/25/17 [History] Allopurinol [Zyloprim] 300 mg PO DAILY 06/25/17 [History] Amiodarone [Cordarone] 200 mg PO DAILY 06/25/17 [History] Aspirin [Lo-Dose Aspirin EC] 81 mg PO DAILY 06/25/17 [History] Atorvastatin [Lipitor] 40 mg PO HS 06/25/17 [History] Cholecalciferol (D-3) [Vitamin D] 1,000 unit PO DAILY 06/25/17 [History] Ferrous Gluconate 324 mg PO BID 06/25/17 [History] Furosemide [Lasix] 40 mg PO DAILY 06/25/17 [History] Gabapentin [Neurontin] 300 mg PO 1200 06/25/17 [History] Gabapentin [Neurontin] 600 mg PO QAM AND QHS 06/25/17 [History] Levothyroxine [Synthroid] 112 mcg PO 0630 06/25/17 [History] Losartan Potassium [Cozaar] 50 mg PO DAILY 06/25/17 [History] Multivitamin [One Daily Multivitamin] 1 each PO DAILY 06/25/17 [History] Rivaroxaban [Xarelto] 15 mg PO HS 06/25/17 [History] Spironolactone [Aldactone] 25 mg PO DAILY 06/25/17 [History] Tramadol HCl [Ultram] 50 mg PO TID 06/25/17 [History] hydrALAZINE [HydrALAZINE] 25 mg PO BID 06/25/17 [History] predniSONE [PredniSONE] 10 mg PO DAILY 06/25/17 [History] 3 Allergy/AdvReac Type Severity Reaction Status Date / Time No Known Allergies Allergy Verified 04/24/17 09:45 All Systems Review: A 10-system review of systems was performed and is negative for pertinent findings except as documented above in the HPI. Physical Examination General: Conversant, No Apparent Distress HEENT: Atraumatic, Normocephaly, Mucus Membranes Moist Neck: No JVD, Normal carotid pulses Cardiac: Reg Rate and Rhythm, Normal S1 and S2, No Murmur, Other (device site normal) Lungs: Other (scattered ronchi) Neuro: Alert and responsive, No focal deficits noted Abdomen: Soft, Non-Tender Skin: No rashes noted on visualized skin Results 06/26/17 00:53 Lab Results 06/25/17 06/26/17 06/26/17 18:09 00:53 00:53 Sodium 136 Potassium 4.4 Chloride 103 Carbon Dioxide 29 BUN 37 H Creatinine 1.29 H Glucose 95 Calcium 9.2 Magnesium 2.0 Troponin I 0.05 H* 0.05 H* 06/26/17 06:32 Sodium Potassium Chloride Carbon Dioxide BUN Creatinine Glucose Calcium Magnesium Troponin I 0.04 H* Consult Discharge Plan - Plan Referrals: Tye Arellano MD [Primary Care Provider] -
--- NOTE | 2017-06-26 16:40 | Internal Med Progress Note ---
Date of Encounter: 06/26/17 Time of Encounter: 12:00 - Assessment and plan (1) ARIEL (acute kidney injury) Current Visit: Yes Status: Acute Assessment and plan: 1 creatinine was 1.5 on presentation was most likely related to over diuresis. We will hold Lasix for now Give gentle IV hydration Monitor intake and output Avoid nephrotoxins Her electrolytes and creatinine (2) Hypotension Current Visit: Yes Status: Acute Assessment and plan: Improved we will continue to hold Lasix and continue gentle hydration Qualifiers: Hypotension type: unspecified hypotension type Qualified Code(s): I95.9 - Hypotension, unspecified (3) CHF (congestive heart failure) Current Visit: No Status: Acute Assessment and plan: We will hold Lasix for now Monitor intake and output daily weights Low-sodium diet Qualifiers: Congestive heart failure type: unspecified Congestive heart failure chronicity: chronic Qualified Code(s): I50.9 - Heart failure, unspecified (4) DVT prophylaxis Current Visit: No Status: Acute (5) Atrial fibrillation Current Visit: No Status: Chronic Assessment and plan: Continue with amiodarone and Xarelto Qualifiers: Atrial fibrillation type: unspecified Qualified Code(s): I48.91 - Unspecified atrial fibrillation (6) CAD (coronary artery disease) Current Visit: No Status: Chronic Assessment and plan: Prior stent to LAD continue with aspirin Qualifiers: Coronary Disease-Associated Artery/Lesion type: [place] artery [place] vs. transplanted heart: [place] heart Associated angina: without angina Qualified Code(s): I25.10 - Atherosclerotic heart disease of [place] coronary artery without angina pectoris (7) Weakness Current Visit: Yes Status: Acute Assessment and plan: Most likely related to hypotension as well as infectious process patient does have a UTI. Encourage patient to ambulate with nursing staff we will consult PT OT (8) Elevated troponin Current Visit: Yes Status: Acute Assessment and plan: Seen by cardiology-per cardiology most likely ARIEL and hypertension - Subjective Interval history: Patient states she is feeling better does not feel as weak. She denies any urinary symptoms at this time no fevers or chills encouraged patient to ambulate - Constitutional Vitals: Temp Pulse Resp BP Pulse Ox 99.3 F 63 16 109/44 96 06/26/17 11:53 06/26/17 11:53 06/26/17 11:53 06/26/17 11:53 06/26/17 11:53 General appearance: Present: A&O X 3 - Head Head exam: Present: atraumatic, normocephalic - Eye Eye exam: Present: PERRL, conjuntiva pink, sclera anicteric Pupils: Present: PERRL - Neck Neck exam general surgery: Present: supple, trachea midline. Absent: lymphadenopathy - Respiratory Respiratory exam: Present: CTAB. Absent: accessory muscle use, rales, rhonchi, wheezes - Cardiovascular Cardiovascular exam: Present: RRR, +S1, +S2. Absent: diastolic murmur, gallop, rubs, systolic murmur - GI/Abdominal GI/Abdominal exam: Present: normal bowel sounds, soft, no peritoneal signs. Absent: distended, tenderness - Extremities Exam Extremities exam: Present: warm, radial pulses palpable and symmetrical. Absent : calf tenderness, cyanotic, pedal edema - Neurological Exam Neurological exam: Present: CN II-XII intact, oriented X3, no focal deficits. Absent: pronater drift, facial droop, speech deficit - Skin Skin exam: Present: dry, intact Internal Medicine: Result - Labs CBC & Chem 7: 06/26/17 00:53 Labs: BMP 06/26/17 00:53 Sodium 136 Potassium 4.4 Chloride 103 Carbon Dioxide 29 BUN 37 H Creatinine 1.29 H Glucose 95 Calcium 9.2 Cardiac Enzymes 06/25/17 06/26/17 06/26/17 Range/Units 18:09 00:53 06:32 Troponin I 0.05 H* 0.05 H* 0.04 H* (< 0.04) ng/mL Consult Discharge Plan - Plan Referrals: Tye Arellano MD [Primary Care Provider] -
[2017-06-26 20:24] LABS: Acinetobacter baumannii by PCR Not Detected (Not Detect); Candida albicans by PCR Not Detected (Not Detect); Candida glabrata by PCR Not Detected (Not Detect); Candida krusei by PCR Not Detected (Not Detect); Candida parapsilosis by PCR Not Detected (Not Detect); Candida tropicalis by PCR Not Detected (Not Detect); Enterococcus by PCR Not Detected (Not Detect); Escherichia coli by PCR Not Detected (Not Detect); Klebsiella oxytoca by PCR Not Detected (Not Detect); Klebsiella pneumoniae by PCR Not Detected (Not Detect); Pseudomonas aeruginosa by PCR Not Detected (Not Detect); Serratia marcescens by PCR Not Detected (Not Detect); Staphylococcus aureus by PCR Not Detected (Not Detect); Streptococcus agalactiae(B)PCR Not Detected (Not Detect); Streptococcus by PCR ***DETECTED*** (Not Detect); Streptococcus pneumoniae PCR Not Detected (Not Detect); Streptococcus pyogenes (A) PCR Not Detected (Not Detect)
[2017-06-27 07:50] LABS: Basophils % 0.2 %; Eosinophils # 0.1 K/mcL (0.0-0.6); Eosinophils % 1.8 %; Immature Granulocytes % 0.6 % (0-4); Lymphocytes # 0.5 K/mcL (0.6-4.6); Lymphocytes % 9.3 %; Mean Corpuscular Hemoglobin 26.7 pg (28.0-33.3); Mean Platelet Volume 12.8 fL (9.4-12.4); Monocytes # 0.5 K/mcL (0.0-1.3); Monocytes % 10.1 %; Neutrophils # 3.9 K/mcL (1.6-8.9); Nucleated Red Blood Cells 0.4 /100 WBC (0); Platelet Count 128 K/mcL (140-400); Red Blood Count 3.37 M/mcL (3.82-4.97); Red Cell Distribution Width 17.2 % (11.5-14.5)
[2017-06-27 08:17] LABS: BUN/Creatinine Ratio 31 (6-26); Blood Urea Nitrogen 25 mg/dL (8-23); Calcium 8.7 mg/dL (8.6-10.3); Carbon Dioxide 27 mEq/L (23-29); Chloride 108 mEq/L (98-107); Glucose 77 mg/dL (70-105); Osmolality,Calculated 291 (280-300); Potassium 4.1 mEq/L (3.5-5.1); Sodium 139 mEq/L (136-145); eGFR For African Americans > 60 (> 60); eGFR For Non-African Americans > 60 (> 60)
[2017-06-27] MEDS: *HR* Amiodarone 200 MG TABLET PO SCH (09:12)
[2017-06-27] MEDS: Aspirin Enteric Coated 81 MG Tablet PO SCH (09:12)
[2017-06-27] MEDS: *HR* Rivaroxaban 15 MG TABLET PO SCH (09:12)
[2017-06-27] MEDS: Gabapentin 300 MG CAPSULE PO SCH ×3 (09:12→20:49)
[2017-06-27] MEDS: predniSONE 10 MG TABLET PO SCH (09:12)
[2017-06-27] MEDS: Cholecalciferol (D-3) 1,000 UNIT TABLET PO SCH (09:12)
[2017-06-27] MEDS: cefTRIAXone 1,000 MG in Water for inj. (sterile) 20 ML 10 ML IVP SCH (09:13)
--- NOTE | 2017-06-27 16:44 | Internal Med Progress Note ---
Date of Encounter: 06/27/17 Time of Encounter: 11:00 - Assessment and plan (1) ARIEL (acute kidney injury) Current Visit: Yes Status: Acute Assessment and plan: 1 creatinine was 1.5 on presentation was most likely related to over diuresis. It has improved now to less than 1 We will continue hold Lasix for now Monitor intake and output Avoid nephrotoxins Monitor electrolytes and creatinine (2) Hypotension Current Visit: Yes Status: Acute Assessment and plan: Improved we will continue to hold Lasix for now Qualifiers: Hypotension type: unspecified hypotension type Qualified Code(s): I95.9 - Hypotension, unspecified (3) CHF (congestive heart failure) Current Visit: No Status: Acute Assessment and plan: Stable We will hold Lasix for now Monitor intake and output daily weights Low-sodium diet Qualifiers: Congestive heart failure type: unspecified Congestive heart failure chronicity: chronic Qualified Code(s): I50.9 - Heart failure, unspecified (4) DVT prophylaxis Current Visit: No Status: Acute Assessment and plan: on xarelto (5) Atrial fibrillation Current Visit: No Status: Chronic Assessment and plan: Continue with amiodarone and Xarelto Qualifiers: Atrial fibrillation type: unspecified Qualified Code(s): I48.91 - Unspecified atrial fibrillation (6) CAD (coronary artery disease) Current Visit: No Status: Chronic Assessment and plan: Prior stent to LAD continue with aspirin Qualifiers: Coronary Disease-Associated Artery/Lesion type: [place] artery [place] vs. transplanted heart: [place] heart Associated angina: without angina Qualified Code(s): I25.10 - Atherosclerotic heart disease of [place] coronary artery without angina pectoris (7) Weakness Current Visit: Yes Status: Acute Assessment and plan: Most likely related to hypotension as well as infectious process patient does have a UTI. Encourage patient to ambulate with nursing staff we will consult PT OT (8) Elevated troponin Current Visit: Yes Status: Acute Assessment and plan: Seen by cardiology-per cardiology most likely ARIEL and hypertension (9) UTI (urinary tract infection) Current Visit: Yes Status: Acute Assessment and plan: Patient urinalysis positive for UTI initial preliminary blood cultures positive for gram-positive cocci-second set also positive continue with Rocephin Qualifiers: Urinary tract infection type: acute cystitis Hematuria presence: without hematuria Qualified Code(s): N30.00 - Acute cystitis without hematuria (10) Bacteremia Current Visit: Yes Status: Acute Assessment and plan: Initial blood cultures positive for gram-positive cocci second also positive. Most likely related to UTI will continue with Rocephin awaiting sensitivity - Subjective Interval history: Patient states she is feeling better does not feel as weak. She denies any urinary symptoms at this time no fevers or chills encouraged patient to ambulate - Constitutional Vitals: Temp Pulse Resp BP Pulse Ox 98.7 F 53 16 128/81 99 06/27/17 16:23 06/27/17 16:23 06/27/17 16:23 06/27/17 16:23 06/27/17 16:23 General appearance: Present: A&O X 3 - Head Head exam: Present: atraumatic, normocephalic - Eye Eye exam: Present: PERRL, conjuntiva pink, sclera anicteric Pupils: Present: PERRL - Neck Neck exam general surgery: Present: supple, trachea midline. Absent: lymphadenopathy - Respiratory Respiratory exam: Present: CTAB. Absent: accessory muscle use, rales, rhonchi, wheezes - Cardiovascular Cardiovascular exam: Present: RRR, +S1, +S2. Absent: diastolic murmur, gallop, rubs, systolic murmur - GI/Abdominal GI/Abdominal exam: Present: normal bowel sounds, soft, no peritoneal signs. Absent: distended, tenderness - Extremities Exam Extremities exam: Present: warm, radial pulses palpable and symmetrical. Absent : calf tenderness, cyanotic, pedal edema - Neurological Exam Neurological exam: Present: CN II-XII intact, oriented X3, no focal deficits. Absent: pronater drift, facial droop, speech deficit - Skin Skin exam: Present: dry, intact Internal Medicine: Result - Labs CBC & Chem 7: 06/27/17 07:26 06/27/17 07:26 Labs: Short CBC 06/27/17 Range/Units 07:26 WBC 5.0 D (4.3-11.1) K/mcL Hgb 9.0 L (11.5-15.4) g/dL Hct 30.0 L (35.3-44.9) % Plt Count 128 L (140-400) K/mcL Neutrophils # 3.9 (1.6-8.9) K/mcL BMP 06/27/17 07:26 Sodium 139 Potassium 4.1 Chloride 108 H Carbon Dioxide 27 BUN 25 H Creatinine 0.81 Glucose 77 Calcium 8.7 Consult Discharge Plan - Plan Referrals: Tye Arellano MD [Primary Care Provider] -
[2017-06-28 04:35] LABS: Basophils % 0.4 %; Eosinophils # 0.1 K/mcL (0.0-0.6); Eosinophils % 1.8 %; Hematocrit 30.6 % (35.3-44.9); Hemoglobin 9.5 g/dL (11.5-15.4); Immature Granulocytes % 0.4 % (0-4); Lymphocytes # 0.6 K/mcL (0.6-4.6); Lymphocytes % 12.7 %; Mean Corpuscular Hemoglobin 27.2 pg (28.0-33.3); Mean Corpuscular Volume 87.7 fL (83.0-100.0); Mean Platelet Volume 13.1 fL (9.4-12.4); Monocytes # 0.6 K/mcL (0.0-1.3); Monocytes % 11.3 %; Neutrophils # 3.6 K/mcL (1.6-8.9); Platelet Count 154 K/mcL (140-400); Red Blood Count 3.49 M/mcL (3.82-4.97); Red Cell Distribution Width 17.3 % (11.5-14.5); Segmented Neutrophils % 73.4 %
[2017-06-28 04:53] LABS: BUN/Creatinine Ratio 31 (6-26); Blood Urea Nitrogen 24 mg/dL (8-23); Calcium 9.1 mg/dL (8.6-10.3); Carbon Dioxide 31 mEq/L (23-29); Chloride 108 mEq/L (98-107); Glucose 84 mg/dL (70-105); Osmolality,Calculated 297 (280-300); Potassium 4.2 mEq/L (3.5-5.1); Sodium 142 mEq/L (136-145); eGFR For African Americans > 60 (> 60); eGFR For Non-African Americans > 60 (> 60)
[2017-06-28] MEDS: Cholecalciferol (D-3) 1,000 UNIT TABLET PO SCH (09:34)
[2017-06-28] MEDS: Gabapentin 300 MG CAPSULE PO SCH ×3 (09:34→20:53)
[2017-06-28] MEDS: cefTRIAXone 1,000 MG in Water for inj. (sterile) 20 ML 10 ML IVP SCH (09:34)
[2017-06-28] MEDS: *HR* Rivaroxaban 15 MG TABLET PO SCH (09:34)
[2017-06-28] MEDS: *HR* Amiodarone 200 MG TABLET PO SCH (09:34)
[2017-06-28] MEDS: predniSONE 10 MG TABLET PO SCH (09:34)
[2017-06-28] MEDS: Aspirin Enteric Coated 81 MG Tablet PO SCH (09:34)
--- NOTE | 2017-06-28 18:29 | Internal Med Progress Note ---
Date of Encounter: 06/28/17 Time of Encounter: 18:27 - Assessment and plan (1) Bacteremia Current Visit: Yes Status: Acute Assessment and plan: Initial blood cultures positive for gram-positive cocci second also positive. Most likely related to UTI will continue with Rocephin awaiting sensitivity (2) UTI (urinary tract infection) Current Visit: Yes Status: Acute Assessment and plan: Patient urinalysis positive for UTI initial preliminary blood cultures positive for gram-positive cocci-second set also positive continue with Rocephin Qualifiers: Urinary tract infection type: acute cystitis Hematuria presence: without hematuria Qualified Code(s): N30.00 - Acute cystitis without hematuria (3) ARIEL (acute kidney injury) Current Visit: Yes Status: Acute Assessment and plan: 1 creatinine was 1.5 on presentation was most likely related to over diuresis. It has improved now to less than 1 resume Lasix upon discharge Monitor intake and output Avoid nephrotoxins Monitor electrolytes and creatinine (4) Hypotension Current Visit: Yes Status: Acute Assessment and plan: Improved we will hold hydralazine for now as well as Lasix she may need to have her hydralazine DC'd since this is new Qualifiers: Hypotension type: unspecified hypotension type Qualified Code(s): I95.9 - Hypotension, unspecified (5) CHF (congestive heart failure) Current Visit: No Status: Acute Assessment and plan: Stable We will hold Lasix for now Monitor intake and output daily weights Low-sodium diet Qualifiers: Congestive heart failure type: unspecified Congestive heart failure chronicity: chronic Qualified Code(s): I50.9 - Heart failure, unspecified (6) DVT prophylaxis Current Visit: No Status: Acute Assessment and plan: on xarelto (7) Atrial fibrillation Current Visit: No Status: Chronic Assessment and plan: Continue with amiodarone and Xarelto Qualifiers: Atrial fibrillation type: unspecified Qualified Code(s): I48.91 - Unspecified atrial fibrillation (8) CAD (coronary artery disease) Current Visit: No Status: Chronic Assessment and plan: Prior stent to LAD continue with aspirin Qualifiers: Coronary Disease-Associated Artery/Lesion type: [place] artery [place] vs. transplanted heart: [place] heart Associated angina: without angina Qualified Code(s): I25.10 - Atherosclerotic heart disease of [place] coronary artery without angina pectoris (9) Weakness Current Visit: Yes Status: Acute Assessment and plan: Most likely related to hypotension as well as infectious process patient does have a UTI. Encourage patient to ambulate with nursing staff we will consult PT OT (10) Elevated troponin Current Visit: Yes Status: Acute Assessment and plan: Seen by cardiology-per cardiology most likely ARIEL and hypertension - Subjective Interval history: Patient states she is feeling better does not feel as weak. She denies any urinary symptoms no fevers or chills encouraged patient to ambulate - Constitutional Vitals: Temp Pulse Resp BP Pulse Ox 98.7 F 59 16 111/56 97 06/28/17 16:30 06/28/17 16:30 06/28/17 16:30 06/28/17 16:30 06/28/17 16:30 General appearance: Present: A&O X 3 - Head Head exam: Present: atraumatic, normocephalic - Eye Eye exam: Present: PERRL, conjuntiva pink, sclera anicteric Pupils: Present: PERRL - Neck Neck exam general surgery: Present: supple, trachea midline. Absent: lymphadenopathy - Respiratory Respiratory exam: Present: CTAB. Absent: accessory muscle use, rales, rhonchi, wheezes - Cardiovascular Cardiovascular exam: Present: RRR, +S1, +S2. Absent: diastolic murmur, gallop, rubs, systolic murmur - Extremities Exam Extremities exam: Present: warm, radial pulses palpable and symmetrical. Absent : calf tenderness, cyanotic, pedal edema - Neurological Exam Neurological exam: Present: CN II-XII intact, oriented X3, no focal deficits. Absent: pronater drift, facial droop, speech deficit - Skin Skin exam: Present: dry, intact Internal Medicine: Result - Labs CBC & Chem 7: 06/28/17 03:50 06/28/17 03:50 Labs: Short CBC 06/28/17 Range/Units 03:50 WBC 5.0 (4.3-11.1) K/mcL Hgb 9.5 L (11.5-15.4) g/dL Hct 30.6 L (35.3-44.9) % Plt Count 154 (140-400) K/mcL Neutrophils # 3.6 (1.6-8.9) K/mcL BMP 06/28/17 03:50 Sodium 142 Potassium 4.2 Chloride 108 H Carbon Dioxide 31 H BUN 24 H Creatinine 0.78 Glucose 84 Calcium 9.1 Consult Discharge Plan - Plan Referrals: Tye Arellano MD [Primary Care Provider] -
[2017-06-29 05:10] LABS: Basophils % 0.2 %; Eosinophils # 0.1 K/mcL (0.0-0.6); Eosinophils % 1.3 %; Hematocrit 33.7 % (35.3-44.9); Hemoglobin 10.1 g/dL (11.5-15.4); Immature Granulocytes % 0.5 % (0-4); Lymphocytes # 0.7 K/mcL (0.6-4.6); Lymphocytes % 12.6 %; Mean Corpuscular Hemoglobin 26.8 pg (28.0-33.3); Mean Corpuscular Volume 89.4 fL (83.0-100.0); Mean Platelet Volume 12.7 fL (9.4-12.4); Monocytes # 0.5 K/mcL (0.0-1.3); Monocytes % 9.1 %; Neutrophils # 4.2 K/mcL (1.6-8.9); Platelet Count 174 K/mcL (140-400); Red Blood Count 3.77 M/mcL (3.82-4.97); Red Cell Distribution Width 17.2 % (11.5-14.5); Segmented Neutrophils % 76.3 %
[2017-06-29 05:36] LABS: BUN/Creatinine Ratio 30 (6-26); Blood Urea Nitrogen 24 mg/dL (8-23); Calcium 9.3 mg/dL (8.6-10.3); Carbon Dioxide 32 mEq/L (23-29); Chloride 108 mEq/L (98-107); Glucose 95 mg/dL (70-105); Osmolality,Calculated 302 (280-300); Sodium 144 mEq/L (136-145); eGFR For African Americans > 60 (> 60); eGFR For Non-African Americans > 60 (> 60)
[2017-06-29] MEDS: Aspirin Enteric Coated 81 MG Tablet PO SCH (09:07)
[2017-06-29] MEDS: Gabapentin 300 MG CAPSULE PO SCH ×3 (09:07→21:29)
[2017-06-29] MEDS: Cholecalciferol (D-3) 1,000 UNIT TABLET PO SCH (09:07)
[2017-06-29] MEDS: *HR* Amiodarone 200 MG TABLET PO SCH (09:07)
[2017-06-29] MEDS: *HR* Rivaroxaban 15 MG TABLET PO SCH (09:07)
[2017-06-29] MEDS: cefTRIAXone 1,000 MG in Water for inj. (sterile) 20 ML 10 ML IVP SCH (09:08)
[2017-06-29] MEDS: predniSONE 10 MG TABLET PO SCH (09:08)
--- NOTE | 2017-06-29 14:11 | Discharge Summary ---
Date of Encounter: 06/29/17 Time of Encounter: 14:07 - Discharge Diagnosis (1) ARIEL (acute kidney injury) Priority: Primary Status: Acute Comments: creatinine was 1.5 on presentation was most likely related to over diuresis. It has improved now to less than 1, resume Lasix upon discharge Monitor intake and output Avoid nephrotoxins Monitor electrolytes and creatinine (2) Bacteremia Priority: Primary Status: Acute Comments: Initial blood cultures positive for gram-positive cocci second also positive. Related to UTI Rocephin switched to Avelox hypersensitivity on discharge (3) UTI (urinary tract infection) Priority: Primary Status: Acute Qualifiers: Urinary tract infection type: acute cystitis Hematuria presence: without hematuria Qualified Code(s): N30.00 - Acute cystitis without hematuria (4) CHF (congestive heart failure) Priority: Secondary Status: Chronic Qualifiers: Congestive heart failure type: unspecified Congestive heart failure chronicity: chronic Qualified Code(s): I50.9 - Heart failure, unspecified - Discharge Medications Home Medications: Albuterol Sulfate [Ventolin Hfa] 2 puff IH Q4H PRN 06/25/17 [History] Allopurinol [Zyloprim] 300 mg PO DAILY 06/25/17 [History] Amiodarone [Cordarone] 200 mg PO DAILY 06/25/17 [History] Aspirin [Lo-Dose Aspirin EC] 81 mg PO DAILY 06/25/17 [History] Atorvastatin [Lipitor] 40 mg PO HS 06/25/17 [History] Cholecalciferol (D-3) [Vitamin D] 1,000 unit PO DAILY 06/25/17 [History] Ferrous Gluconate 324 mg PO BID 06/25/17 [History] Furosemide [Lasix] 40 mg PO DAILY 06/25/17 [History] Gabapentin [Neurontin] 300 mg PO 1200 06/25/17 [History] Gabapentin [Neurontin] 600 mg PO QAM AND QHS 06/25/17 [History] Levothyroxine [Synthroid] 112 mcg PO 0630 06/25/17 [History] Losartan Potassium [Cozaar] 50 mg PO DAILY 06/25/17 [History] Multivitamin [One Daily Multivitamin] 1 each PO DAILY 06/25/17 [History] Rivaroxaban [Xarelto] 15 mg PO HS 06/25/17 [History] Spironolactone [Aldactone] 25 mg PO DAILY 06/25/17 [History] Tramadol HCl [Ultram] 50 mg PO TID 06/25/17 [History] hydrALAZINE [HydrALAZINE] 25 mg PO BID 06/25/17 [History] predniSONE [PredniSONE] 10 mg PO DAILY 06/25/17 [History] Allergies/Adverse Reactions: 3 Allergy/AdvReac Type Severity Reaction Status Date / Time No Known Allergies Allergy Verified 04/24/17 09:45 Date of admission: 06/26/17 16:39 Primary care physician: Tye Arellano MD Consults: 06/25/17 17:27 Consult to Physician [CONS] Routine Consulting Provider: Ivet Nelson Reason for Consult: SEVERE CMP WITH HYPOTENSION OVERDIURESED Time Notified: 17:28 Call Completed: No 06/26/17 16:44 Consult to Physical Therapy [CONS] Routine Comment: Evaluate, develop and implement POC Reason for Consult: Weakness 06/26/17 16:45 Consult to Occupational Therapy [CONS] Routine Comment: Evaluate, develop and implement POC Reason for Consult: Weakness Discharging clinician: Josie Davis Anticipated date of discharge: 06/29/17 - Discharge Instructions Follow Up With: Tye Arellano MD [Primary Care Provider] - Hospital course: Ms. Jay is a 87 year old female - Time Spent with Patient Total time spent providing and/or coordinating discharge services: - Constitutional Vitals: Temp Pulse Resp BP Pulse Ox 98.8 F 62 15 130/62 96 06/29/17 11:25 06/29/17 11:25 06/29/17 11:25 06/29/17 11:25 06/29/17 11:25 General appearance: Present: A&O X 3
--- NOTE | 2017-06-29 15:35 | Infectious Disease Consult ---
Date of Encounter: 06/29/17 Time of Encounter: 15:35 Assessment and Plan (1) Hypotension Status: Acute Assessment and plan: The patient had hypotension upon arrival to the ED with systolic BP in the 80's. Likely secondary to overdiuresis, but could be related to bacteremia as well. Improved with IV fluid resuscitation. Qualifiers: Hypotension type: unspecified hypotension type Qualified Code(s): I95.9 - Hypotension, unspecified (2) Bacteremia Status: Acute Assessment and plan: Causative organism: Strep gallolyticus Source unclear, possible intra-abdominal source. Abdominal exam benign, but LFTs were mildly elevated on admission. Complicated due to AICD and left shoulder hardware. Blood cultures drawn 06/25/17 at [facility] were positive 1/1 sets for S. gallolyticus. Repeat blood cultures drawn here 06/26/17 are positive 2/2 sets for S. gallolyticus. No endocarditis stigmata noted on exam. The patient has one major Modified Arita' s Criteria. The patient does have a murmur, but previous documentation reports that it was there previously. Clinically, the patient looks good. She had some hypotension on presentation to the ED, but not sure if this was from the infection vs. overdiuresis from lasix. Get TTE. May need to consider TERRI prior to discharge. Get CT of the abdomen and pelvis with oral contrast. Repeat blood cultures x 2 sets now. Recommend re-consulting EP now that we have positive blood cultures in the setting of a patient with AICD. Continue Rocephin, increase to 2 grams IV daily. Duration of treatment depends on the clinical picture. Monitor renal function and dose-adjust antibiotics. (3) UTI (urinary tract infection) Status: Acute Assessment and plan: UTI vs. asymptomatic bacteriuria. Causative organism: E. coli. Not sure that this is a true infection since the patient did not have any urinary symptoms. Continue Rocephin as stated above. Qualifiers: Urinary tract infection type: acute cystitis Hematuria presence: without hematuria Qualified Code(s): N30.00 - Acute cystitis without hematuria (4) ARIEL (acute kidney injury) Status: Acute Assessment and plan: Likely multifactorial: overuse of diuretics + infectious process. Resolved. Continue trend. Dose-adjust antibiotics. Avoid nephrotoxins as able. (5) Weakness Status: Acute Assessment and plan: Likely multifactorial: ARIEL + infection + overdiuresis. CT head negative. Improved. (6) Atrial fibrillation Status: Chronic Assessment and plan: Rate controlled. Cardiology consulted. Qualifiers: Atrial fibrillation type: unspecified Qualified Code(s): I48.91 - Unspecified atrial fibrillation (7) CHF (congestive heart failure) Status: Chronic Assessment and plan: Status post BiV AICD placement in 03/[address] Nelson. Qualifiers: Congestive heart failure type: unspecified Congestive heart failure chronicity: chronic Qualified Code(s): I50.9 - Heart failure, unspecified (8) COPD (chronic obstructive pulmonary disease) Status: Chronic Qualifiers: COPD type: unspecified COPD Qualified Code(s): J44.9 - Chronic obstructive pulmonary disease, unspecified (9) Chronic back pain Status: Chronic Assessment and plan: Vertebral tenderness noted at the site of the patient's chronic back pain, but not markedly tender. Continue to monitor closely for worsening back pain. Qualifiers: Back pain location: back pain in unspecified location Back pain laterality : unspecified Qualified Code(s): M54.9 - Dorsalgia, unspecified; G89.29 - Other chronic pain (10) ICD (implantable cardioverter-defibrillator) in place Status: Chronic Assessment and plan: Status post BiV AICD placement 03/[address] Nelson. Clinically, the site is well-healed and does not appear infected. (11) Elevated LFTs Status: Acute Assessment and plan: AST and ALT elevated on admission. Re-check LFTs. Infectious Disease HPI - Data of Consult Patient: new to practice Consult date: 06/29/17 Requesting Physician: Johana Hernandez CNP Primary Care Provider: Tye Arellano MD - Consult Narrative Reason for consult: Bacteremia History of present illness: Ms. Jay is a 87 year old female with a past medical history of arthritis, degenerative disc disease, A. fib, cardiomyopathy status post biventricular AICD placement in 2016, systolic heart murmur, CHF, diabetes, hypertension, and [place] status post cardiac stent placement 2. The patient was admitted to the hospital June 25 for weakness and UTI. We are consulted June 29 for antibiotic recommendations for bacteremia. Briefly, the patient is 87 her old female with past medical history as stated above. The patient presented to the hospital with complaints of generalized weakness and shakiness that started the day prior to admission. Upon arrival to the ER, the patient was noted to have a blood pressure in the 80s systolic. She is otherwise hemodynamically stable and afebrile. Her blood pressure did respond to IV fluid resuscitation. Laboratory studies revealed a normal white blood cell count with an acute kidney injury. Lactic acid was normal. She also had mildly elevated AST and ALTs. Troponins were positive at 0.06 and 0.05. Her TSH was also low at 0.304. Chest x-ray was negative. CT of the head was negative. She did have a clean-catch urinalysis that was positive for nitrites, large amount leukocyte esterase, and too numerous to count white blood cells. She also had moderate epithelial cells. Urine culture was positive for pansensitive Escherichia coli. Blood cultures were obtained 1 set and was positive for strep gallolyticus. She was subsequent transferred here for further evaluation and treatment. Since admission, the patient has remained afebrile and hemodynamically stable. Her white blood cell count has remained normal. Cardiology was consulted due to the elevated troponin, but felt this was likely more related to demand ischemia from her acute kidney injury. Her acute kidney injury has resolved. Repeat blood cultures obtained June 26 were +2 out of 2 sets for strep gallolyticus. Currently, the patient is on IV Rocephin 1 g daily. We've been asked to evaluate and make further recommendations. During my exam today, the patient endorses the history as stated above. She denies any fevers or chills or rigors at home. She reports generalized weakness with tremors, but denies any dizziness or headaches or neck pain. She denies any congestion, earache, or sore throat. She does report some rhinorrhea with clear discharge from her nose. She denies any sore throat or cough. She denies any chest pain, shortness of breath, or cough. She states that her AICD site is well-healed and she's not ever had any infection issues with that. She denies any nausea or vomiting or diarrhea. She does report some constipation. She denies any abdominal pain, urinary frequency, dysuria, or hematuria. She denies any pain in her extremities, but does report chronic lower back pain secondary to degenerative disc disease. She denies any oral thrush or new skin lesions. She states she's not been in the hospital are exposed to anybody ill recently. The patient lives at home with her daughter. 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 She denies any tobacco, alcohol, or illicit drug use. CC: Johana Hernandez, JILLIAN Past Med Surg Social Fam HX - Past Medical History Attestation: Yes The following information was validated with the patient. Source: patient, old records reviewed, nursing notes reviewed Medical history: arthritis, atrial fibrillation, cardiomyopathy, CHF, COPD, coronary artery disease, diabetes, hyperlipidemia, hypertension, myocardial infarction, thyroid disease, other Psychiatric history: no psych history - Past Surgical History Surgical History: angioplasty/stent (Cardiac stent x 2), appendectomy, cataract , cholecystectomy, hysterectomy, orthopedic, other (Left reverse shoulder 2015), pacemaker/AICD (BiV AICD 10/2016), other - Social History Smoking Status: Former smoker Smokeless Tobacco Status: No Alcohol use: none Drug use: none Occupational status: retired Current living situation: Home, With Family Activity Level: Uses cane/walker Recent Out of Country Travel Within the Last 8 Weeks: No Exposure or Possible Exposure to Illness During Travel: No - Family History Grandmother Family Member Ethnicity: Non- Living Status: Brother Family Member Ethnicity: Non- Living Status: Hx Family Respiratory Disorders: Yes (Emphysema) Mother Family Member Ethnicity: Non- Living Status: Hx Family Cardiac Disorders: Yes (HTN, CVA) Hx Family Neurologic Disorders: Yes (Status post CVA) Father Family Member Ethnicity: Non- Living Status: Hx Family Cardiac Disorders: Yes (HTN) Sister Family Member Ethnicity: Non- Living Status: Hx Family Cancer: Yes (Cervical) Hx Family Neuromuscular Disorders: Yes (History of Parkinson's disease) Infectious Disease-CN:Meds Albuterol Sulfate [Ventolin Hfa] 2 puff IH Q4H PRN 06/25/17 [History] Allopurinol [Zyloprim] 300 mg PO DAILY 06/25/17 [History] Amiodarone [Cordarone] 200 mg PO DAILY 06/25/17 [History] Aspirin [Lo-Dose Aspirin EC] 81 mg PO DAILY 06/25/17 [History] Atorvastatin [Lipitor] 40 mg PO HS 06/25/17 [History] Cholecalciferol (D-3) [Vitamin D] 1,000 unit PO DAILY 06/25/17 [History] Ferrous Gluconate 324 mg PO BID 06/25/17 [History] Furosemide [Lasix] 40 mg PO DAILY 06/25/17 [History] Gabapentin [Neurontin] 300 mg PO 1200 06/25/17 [History] Gabapentin [Neurontin] 600 mg PO QAM AND QHS 06/25/17 [History] Levothyroxine [Synthroid] 112 mcg PO 0630 06/25/17 [History] Losartan Potassium [Cozaar] 50 mg PO DAILY 06/25/17 [History] Multivitamin [One Daily Multivitamin] 1 each PO DAILY 06/25/17 [History] Rivaroxaban [Xarelto] 15 mg PO HS 06/25/17 [History] Spironolactone [Aldactone] 25 mg PO DAILY 06/25/17 [History] Tramadol HCl [Ultram] 50 mg PO TID 06/25/17 [History] hydrALAZINE [HydrALAZINE] 25 mg PO BID 06/25/17 [History] predniSONE [PredniSONE] 10 mg PO DAILY 06/25/17 [History] 3 Allergy/AdvReac Type Severity Reaction Status Date / Time No Known Allergies Allergy Verified 04/24/17 09:45 All systems: reviewed and no additional remarkable complaints except as stated Exam - Constitutional Vitals: Temp Pulse Resp BP Pulse Ox 98.6 F 64 15 125/75 94 06/29/17 15:04 06/29/17 15:04 06/29/17 15:04 06/29/17 15:04 06/29/17 15:04 General appearance: cooperative, no acute distress, obese - Head Head exam: Present: atraumatic, normal inspection, normocephalic - Eye Eye exam: Present: EOMI, normal appearance, PERRL Pupils: Present: normal accommodation Additional comments: No subconjunctival hemorrhage noted. - ENT ENT exam: Present: mucous membranes moist - Neck Neck exam: Present: normal inspection - Respiratory Respiratory exam: Present: CTAB. Absent: rales, respiratory distress, rhonchi, wheezes - Cardiovascular Cardiovascular exam: Present: RRR, +S1, +S2 - GI/Abdominal GI/Abdominal exam: Present: normal bowel sounds, soft. Absent: distended, tenderness - Extremities Exam Extremities exam: Present: normal inspection. Absent: joint swelling, pedal edema, tenderness - Back Exam Back exam: Present: normal inspection, vertebral tenderness (Lumbar spine, mild , history of DDD.). Absent: paraspinal tenderness - Neurological Exam Neurological exam: Present: alert, oriented X3, no focal deficits - Psychiatric Psychiatric exam: Present: normal affect, normal mood - Skin Skin exam: Present: dry, intact, normal color, warm Infectious Disease CN: Results - Labs CBC & Chem 7: 06/29/17 04:45 06/29/17 04:45 Cultures: Cultures 06/26/17 06:50 Blood Culture - Final Peripheral Venipuncture Strep gallolyticus ssp galloly 06/26/17 06:55 Blood Culture - Final Peripheral Venipuncture Strep gallolyticus ssp galloly Serology: Serology 06/26/17 Range/Units 06:50 A. baumannii (PCR) Not Detected (Not Detect) Kenzie albicans (PCR) Not Detected (Not Detect) C. glabrata (PCR) Not Detected (Not Detect) C. krusei (PCR) Not Detected (Not Detect) C. parapsilosis (PCR) Not Detected (Not Detect) C. tropicalis (PCR) Not Detected (Not Detect) Enterobacteriac sp PCR Not Detected (Not Detect) E. cloacae complex PCR Not Detected (Not Detect) Enterococcus sp PCR Not Detected (Not Detect) E. coli (PCR) Not Detected (Not Detect) H. influenzae (PCR) Not Detected (Not Detect) Klebsiella oxytoca PCR Not Detected (Not Detect) Klebsiella pneumoniae Not Detected (Not Detect) List. monocytogenes PCR Not Detected (Not Detect) N. meningitidis (PCR) Not Detected (Not Detect) Proteus species (PCR) Not Detected (Not Detect) Serratia marcescens PCR Not Detected (Not Detect) Staphylococcus sp PCR Not Detected (Not Detect) Staph aureus (PCR) Not Detected (Not Detect) mecA-Methicil Res Gene N/A (Not Detect) Streptococcus sp PCR DETECTED A (Not Detect) Group A Strep DNA Not Detected (Not Detect) Group B Strep (PCR) Not Detected (Not Detect) Strep pneumoniae (PCR) Not Detected (Not Detect) P. aeruginosa (PCR) Not Detected (Not Detect) Brown/B-Vanco Res Genes N/A (Not Detect) KPC (blaKPC) Detect PCR N/A (Not Detect) Consult Discharge Plan - Plan Referrals: Tye Arellano MD [Primary Care Provider] - - Attending Attestation I examined this patient and my medical decision-making was reviewed with the Resident Physician. I agree with the documented findings, disposition and treatment plan as described except to the extent set forth below. Patient is an 87 year old pleasant woman with past medical history mentioned below including history of Arthritis with total shoulder arthroplasty done here by Dr. Hopper without complications and arrhythmias and cardiomyopathy requiring a pacemaker placed last year by Dr. Nelson lives with her daughter in [place] states that she was in usual state of health until when she got weak and was shaking.~ Pts shaking got worse so she came to the ED.~ Patient denied any fevers, chills at home.~ No URI symptoms.~ No chest pain or shortness of breath.~ Patient denies any abdominal pain, nausea or diarrhea.~ She does admit to constipation and she takes miralax.~ Pt denies any urinary symptoms, no joint pain or effusion no skin break. Since admission, patient has been afebrile, HR within normal limit, stable bp, normal WBC but acute kidney injury and mild troponin leak.~ CXR no acute process , CT head no acute process. A u/a was positive for E coli and blood cultures 3/3 sets positive for streptococcus gallolyticus.~ We are asked to evaluate and make further recommendations. Patient does not have conjunctival hemorrhage, but positive murmur that family says is not new.~ Skin with no endocarditis stigmata. Abdominal exam benign AT this point, concern that this is intra abdominal , also concerned for endocarditis specially that patient has AICD.~ I would repeat cultures, get CT abdomen and pelvis and get an Echo and notify EP of the findings.~ Pt will need a scope at one point as well. Continue rocephin for now Monitor labs and for drug toxicity
[2017-06-29] MEDS ORDERED: cefTRIAXone 2,000 MG in Water for inj. (sterile) 20 ML 10 ML IVP SCH (16:01)
[2017-06-29] MEDS ORDERED: cefTRIAXone 1,000 MG in Water for inj. (sterile) 10 ML IVP ONE (16:04)
--- NOTE | 2017-06-29 17:47 | Internal Med Progress Note ---
Date of Encounter: 06/29/17 Time of Encounter: 17:45 - Assessment and plan (1) ARIEL (acute kidney injury) Current Visit: Yes Status: Acute Assessment and plan: 1 creatinine was 1.5 on presentation was most likely related to over diuresis. It has improved now to less than 1 resume Lasix upon discharge Monitor intake and output Avoid nephrotoxins Monitor electrolytes and creatinine (2) Bacteremia Current Visit: Yes Status: Acute Assessment and plan: Reviewed the chart and consulted ID before discharge to f/u on blodd cultures with no clear source. According to ID the patient will need repeat blood cultures. They wrote as folllows and we appreciate their imput Causative organism: Strep gallolyticus Source unclear, possible intra-abdominal source. Abdominal exam benign, but LFTs were mildly elevated on admission. Complicated due to AICD and left shoulder hardware. Blood cultures drawn 06/25/17 at [facility] ER were positive 1/1 sets for S. gallolyticus. Repeat blood cultures drawn here 06/26/17 are positive 2/2 sets for S. gallolyticus. No endocarditis stigmata noted on exam. The patient has one major Modified Arita' s Criteria. The patient does have a murmur, but previous documentation reports that it was there previously. Clinically, the patient looks good. She had some hypotension on presentation to the ED, but not sure if this was from the infection vs. overdiuresis from lasix. Mat need TTE. May need to consider TERRI prior to discharge. Get CT of the abdomen and pelvis with oral contrast. Repeat blood cultures x 2 sets now. Recommend re-consulting EP now that we have positive blood cultures in the setting of a patient with AICD. Continue Rocephin, increase to 2 grams IV daily. Duration of treatment depends on the clinical picture. Monitor renal function and dose-adjust antibiotics. initial blood cultures positive for gram-positive cocci second also positive. Rocephin awaiting sensitivity (3) UTI (urinary tract infection) Current Visit: Yes Status: Acute Assessment and plan: Patient urinalysis positive for UTI initial preliminary blood cultures positive for gram-positive cocci-second set also positive continue with Rocephin Not sure if this is a true infection at patient had no urinary symptoms. Differential UTI versus asymptomatic bacteriuria Qualifiers: Urinary tract infection type: acute cystitis Hematuria presence: without hematuria Qualified Code(s): N30.00 - Acute cystitis without hematuria (4) CHF (congestive heart failure) Current Visit: No Status: Chronic Assessment and plan: Stable continue to hold Lasix Monitor intake and output daily weights Low-sodium diet Qualifiers: Congestive heart failure type: unspecified Congestive heart failure chronicity: chronic Qualified Code(s): I50.9 - Heart failure, unspecified - Subjective Interval history: Patient really wanted to go home and denied any complaints including chest pain , shortness of breath, fever, chills, sweats, abdominal pain or discomfort, urinary symptoms, or dizziness or syncope. Discussed the bacteremia with no obvious source and the need to consult infectious disease and have them see her before she would go home. Appreciate infectious disease input and the patient and daughter's understanding on need to stay a few more days. - Constitutional Vitals: Temp Pulse Resp BP Pulse Ox 98.6 F 64 15 125/75 94 06/29/17 15:04 06/29/17 15:04 06/29/17 15:04 06/29/17 15:04 06/29/17 15:04 General appearance: Present: cooperative, A&O X 3, pleasant, no acute distress, answers questions appropriately - Head Head exam: Present: atraumatic, normocephalic - Eye Eye exam: Present: PERRL, conjuntiva pink, sclera anicteric Pupils: Present: PERRL - Neck Neck exam general surgery: Present: supple, trachea midline. Absent: lymphadenopathy - Respiratory Respiratory exam: Present: CTAB. Absent: accessory muscle use, rales, rhonchi, wheezes - Cardiovascular Cardiovascular exam: Present: RRR, +S1, +S2. Absent: diastolic murmur, gallop, rubs, systolic murmur - GI/Abdominal GI/Abdominal exam: Present: normal bowel sounds, soft, no peritoneal signs. Absent: distended, tenderness - Extremities Exam Extremities exam: Present: warm, radial pulses palpable and symmetrical. Absent : calf tenderness, cyanotic, pedal edema - Neurological Exam Neurological exam: Present: CN II-XII intact, oriented X3, no focal deficits. Absent: pronater drift, facial droop, speech deficit - Skin Skin exam: Present: dry, intact, warm Internal Medicine: Result - Labs CBC & Chem 7: 06/29/17 04:45 06/29/17 04:45 Labs: Short CBC 06/29/17 Range/Units 04:45 WBC 5.5 (4.3-11.1) K/mcL Hgb 10.1 L (11.5-15.4) g/dL Hct 33.7 L (35.3-44.9) % Plt Count 174 (140-400) K/mcL Neutrophils # 4.2 (1.6-8.9) K/mcL BMP 06/29/17 04:45 Sodium 144 Potassium 4.0 Chloride 108 H Carbon Dioxide 32 H BUN 24 H Creatinine 0.79 Glucose 95 Calcium 9.3 Consult Discharge Plan - Plan Referrals: Tye Arellano MD [Primary Care Provider] -
[2017-06-30] MEDS: cefTRIAXone 2,000 MG in Water for inj. (sterile) 20 ML 20 ML IVP SCH (09:28)
[2017-06-30] MEDS: Gabapentin 300 MG CAPSULE PO SCH ×3 (09:28→20:27)
[2017-06-30] MEDS: *HR* Rivaroxaban 15 MG TABLET PO SCH (09:29)
[2017-06-30] MEDS: predniSONE 10 MG TABLET PO SCH (09:29)
[2017-06-30] MEDS: *HR* Amiodarone 200 MG TABLET PO SCH (09:29)
[2017-06-30] MEDS: Aspirin Enteric Coated 81 MG Tablet PO SCH (09:29)
[2017-06-30] MEDS: Cholecalciferol (D-3) 1,000 UNIT TABLET PO SCH (09:29)
--- NOTE | 2017-06-30 13:08 | Infectious Disease Progress No ---
Date of Encounter: 06/30/17 Time of Encounter: 13:05 - Assessment and Plan (1) Hypotension Current Visit: Yes Status: Resolved The patient had hypotension upon arrival to the ED with systolic BP in the 80's. Likely secondary to overdiuresis, but could be related to bacteremia as well. Improved with IV fluid resuscitation. Qualifiers: Hypotension type: unspecified hypotension type Qualified Code(s): I95.9 - Hypotension, unspecified (2) Bacteremia Current Visit: Yes Status: Acute Causative organism: Strep gallolyticus Source unclear, possible intra-abdominal source. Abdominal exam benign, but LFTs were mildly elevated on admission. Complicated due to AICD and left shoulder hardware. Blood cultures drawn 06/25/17 at [facility] were positive 1/1 sets for S. gallolyticus. Repeat blood cultures drawn here 06/26/17 are positive 2/2 sets for S. gallolyticus. No endocarditis stigmata noted on exam. The patient has one major Modified Arita' s Criteria. The patient does have a murmur, but previous documentation reports that it was there previously. Clinically, the patient looks good. She had some hypotension on presentation to the ED, but not sure if this was from the infection vs. overdiuresis from lasix. TTE negative for vegetations. Recommen TERRI. CT of the abdomen showed constipation and what appears to be a renal cyst, but no other acute findings. Repeat blood cultures x 2 sets drawn 06/29/17 are pending. Recommend re-consulting EP now that we have positive blood cultures in the setting of a patient with AICD. Continue Rocephin 2 grams IV daily. Duration of treatment depends on the clinical picture. Monitor renal function and dose-adjust antibiotics. (3) UTI (urinary tract infection) Current Visit: Yes Status: Acute UTI vs. asymptomatic bacteriuria. Causative organism: E. coli. Not sure that this is a true infection since the patient did not have any urinary symptoms. Continue Rocephin as stated above. Qualifiers: Urinary tract infection type: acute cystitis Hematuria presence: without hematuria Qualified Code(s): N30.00 - Acute cystitis without hematuria (4) ARIEL (acute kidney injury) Current Visit: Yes Status: Resolved Likely multifactorial: overuse of diuretics + infectious process. Resolved. Continue trend. Dose-adjust antibiotics. Avoid nephrotoxins as able. (5) Weakness Current Visit: Yes Status: Resolved Likely multifactorial: ARIEL + infection + overdiuresis. CT head negative. Improved. (6) Atrial fibrillation Current Visit: No Status: Chronic Rate controlled. Cardiology consulted. Qualifiers: Atrial fibrillation type: unspecified Qualified Code(s): I48.91 - Unspecified atrial fibrillation (7) CHF (congestive heart failure) Current Visit: No Status: Chronic Qualifiers: Congestive heart failure type: unspecified Congestive heart failure chronicity: chronic Qualified Code(s): I50.9 - Heart failure, unspecified (8) COPD (chronic obstructive pulmonary disease) Current Visit: No Status: Chronic Qualifiers: COPD type: unspecified COPD Qualified Code(s): J44.9 - Chronic obstructive pulmonary disease, unspecified (9) Chronic back pain Current Visit: No Status: Chronic Vertebral tenderness noted at the site of the patient's chronic back pain, but not markedly tender. Continue to monitor closely for worsening back pain. 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 Re-check LFTs. (12) Elevated troponin Current Visit: Yes Status: Acute Troponin peaked at 0.06. Cardiology consulted --> likely secondary to demand ischemia and ARIEL. (13) Renal cyst Current Visit: Yes Status: Acute CT of the abdomen showed a punctate hyperdense lesion extending from the left kidney, probably a hyperdense cysts. Recommed UTS of the left kidney to evaluate further. - Subjective Interval history: Patient seen and examined. No acute events noted overnight. Patient states that overall she feels well today. Denies fevers, chills, or rigors. Denies chest pain, shortness of breath, or cough. Denies nausea, vomiting, or diarrhea. States she had a bowel movement this morning. Denies urinary complaints. Denies back or extremity pain. Denies abdominal pain and states her appetite is good. Denies oral thrush or skin lesions. Infect Dis PN-Objective Data - Labs CBC & Chem 7: 07/01/17 08:30 07/01/17 08:30 Labs: Laboratory Results - last 24 hr 06/28/17 06/28/17 06/28/17 08:40 12:20 17:31 POC Glucose 82 140 H 193 H 06/29/17 06/29/17 06/29/17 07:31 11:23 17:10 POC Glucose 101 H 129 H 155 H Cultures: Cultures 06/26/17 06:50 Blood Culture - Final Peripheral Venipuncture Strep gallolyticus ssp galloly 06/26/17 06:55 Blood Culture - Final Peripheral Venipuncture Strep gallolyticus ssp galloly Serology 06/26/17 Range/Units 06:50 A. baumannii (PCR) Not Detected (Not Detect) Kenzie albicans (PCR) Not Detected (Not Detect) C. glabrata (PCR) Not Detected (Not Detect) C. krusei (PCR) Not Detected (Not Detect) C. parapsilosis (PCR) Not Detected (Not Detect) C. tropicalis (PCR) Not Detected (Not Detect) Enterobacteriac sp PCR Not Detected (Not Detect) E. cloacae complex PCR Not Detected (Not Detect) Enterococcus sp PCR Not Detected (Not Detect) E. coli (PCR) Not Detected (Not Detect) H. influenzae (PCR) Not Detected (Not Detect) Klebsiella oxytoca PCR Not Detected (Not Detect) Klebsiella pneumoniae Not Detected (Not Detect) List. monocytogenes PCR Not Detected (Not Detect) N. meningitidis (PCR) Not Detected (Not Detect) Proteus species (PCR) Not Detected (Not Detect) Serratia marcescens PCR Not Detected (Not Detect) Staphylococcus sp PCR Not Detected (Not Detect) Staph aureus (PCR) Not Detected (Not Detect) mecA-Methicil Res Gene N/A (Not Detect) Streptococcus sp PCR DETECTED A (Not Detect) Group A Strep DNA Not Detected (Not Detect) Group B Strep (PCR) Not Detected (Not Detect) Strep pneumoniae (PCR) Not Detected (Not Detect) P. aeruginosa (PCR) Not Detected (Not Detect) Brown/B-Vanco Res Genes N/A (Not Detect) KPC (blaKPC) Detect PCR N/A (Not Detect) - Impressions Impressions Abdomen CT 06/29/17 16:00 IMPRESSION: 1. Large amount of stool within the colon. Correlate with clinical evidence of constipation. 2. Mural thickening of the distal esophagus. Correlate with clinical evidence of esophagitis. 3. Punctate hyperdense lesion extending from the left kidney, probably hyperdense cyst. Nonemergent ultrasound could be performed to confirm the cystic nature of that. 4. Large amount of stool within the colon. Correlate with clinical evidence of constipation. 5. Patchy atelectasis in the lower lungs bilaterally. 6. Age-indeterminate but probably chronic fracture involving the inferior endplate of L1. 7. Note that the pelvis was not imaged on today's exam. D/ / Vicente Craft MD / Vicente Craft MD Interpreting Provider: Vicente Craft MD Echocardiogram 06/30/17 16:00 Impressions: LVEF 30%. Mildly dilated left ventricle. Severe global left ventricular systolic dysfunction. Atypical septal motion consistent with paced rhythm. Mild left ventricular diastolic dysfunction. Normal right ventricular structure and function. Severely dilated left atrium. Mild aortic valve sclerosis. Mean gradient 12 mmHg. Mild mitral regurgitation. No evidence of pulmonary hypertension. No vegetations visualized on the intracardiac structures or portions of the device lead visualized. Repeat study or consider TERRI as clinically indicated. Left Ventricular Wall Motion: Rest Echo Findings The apex, apical inferior, mid inferior, basal inferior, apical anterior, mid anterior, basal anterior, apical septal, mid inferior septal, basal inferior septal, apical lateral, mid anterior lateral, basal anterior lateral, mid anterior septal, mid inferior lateral, basal anterior septal and basal inferior lateral spencer were hypokinetic. Findings: Study Quality * Technically adequate exam. ECG Findings * Normal sinus rhythm. Left Ventricle * LVEF 30%. * Mildly dilated left ventricle. * Severe global left ventricular systolic dysfunction. * Atypical septal motion consistent with paced rhythm. * Mild left ventricular diastolic dysfunction. Right Ventricle * Normal right ventricular structure and function. Left Atrium * Severely dilated left atrium. Right Atrium * Mildly dilated right atrium. Interatrial Septum * Interatrial septum not well evaluated. Aortic Valve * Aortic valve not well visualized. * Grossly, it appears sclerotic. * No aortic regurgitation. * Mild aortic valve sclerosis. Mean gradient 12 mmHg. Mitral Valve * Mild mitral annular calcification * Mild mitral regurgitation. * No mitral stenosis. Tricuspid Valve * Normal tricuspid valve structure and function. * Trace tricuspid regurgitation. * No evidence of pulmonary hypertension. Pulmonic Valve * Normal pulmonic valve structure and function. * No pulmonic regurgitation. Aorta * Normally sized aortic root. Pericardium * The pericardium appears normal. IVC * Normal IVC dimensions and inspiratory collapse. Pulmonary Artery * Normal visualized portions of the main pulmonary artery. Device lead * A device lead was visualized in the right atrium and right ventricle. Exam - Constitutional Vitals: Temp Pulse Resp BP Pulse Ox 98.1 F 62 16 105/63 98 06/30/17 11:51 06/30/17 11:51 06/30/17 11:51 06/30/17 11:51 06/30/17 11:51 General appearance: average body habitus, cooperative, no acute distress - Head Head exam: Present: atraumatic, normal inspection, normocephalic - Eye Eye exam: Present: EOMI, normal appearance, PERRL Pupils: Present: normal accommodation Additional comments: No subconjunctival hemorrhage noted. - ENT ENT exam: Present: mucous membranes moist - Neck Neck exam: Present: normal inspection - Respiratory Respiratory exam: Present: CTAB. Absent: rales, respiratory distress, rhonchi, wheezes - Cardiovascular Cardiovascular exam: Present: RRR, +S1, +S2, systolic murmur - GI/Abdominal GI/Abdominal exam: Present: normal bowel sounds, soft. Absent: distended, tenderness - Extremities Exam Extremities exam: Present: normal inspection. Absent: joint swelling, pedal edema, tenderness - Back Exam Back exam: Present: normal inspection. Absent: paraspinal tenderness, vertebral tenderness - Neurological Exam Neurological exam: Present: alert, oriented X3, no focal deficits - Psychiatric Psychiatric exam: Present: normal affect, normal mood - Skin Skin exam: Present: dry, intact, normal color, warm Additional comments: No endocarditis stigmata noted. Consult Discharge Plan - Plan Referrals: Tye Arellano MD [Primary Care Provider] - - Attending Attestation I examined this patient and my medical decision-making was reviewed with the Resident Physician. I agree with the documented findings, disposition and treatment plan as described except to the extent set forth below. Discussed with cardiology staff. The patient has no signs of endocarditis, we can use oral antibiotics for the bacteremia. But we need to rule out endocarditis first. I still would like a TERRI prior to discharge because that were change the way we will manage this patient. Spoke with the cardiology team and they are aware of our recommendations.
--- NOTE | 2017-06-30 13:12 | Cardiology Progress Note ---
Date of Encounter: 06/30/17 Time of Encounter: 13:06 Assessment and Plan (1) Bacteremia Current Visit: Yes Status: Acute Per cardiology: -Bacteremia noted with BC positive. -Being followed by infectious disease. -Management per primary and ID teams. (2) ICD (implantable cardioverter-defibrillator) in place Current Visit: No Status: Chronic Per cardiology: -Known BIV ICD for ischemic cardiomyopathy. -Now with bacteremia. -TTE with LVEf 30% (known), no evidence of vegetations noted in intracardiac structures or portions of device lead that was visualized, per TTE. -Spoke with , ID, who states TERRI would be beneficial for his guidance of therapy regarding antibiotics. -Will make NPO after midnight for TERRI in am. Discussion w patient/family: The assessment and plan as outlined above was discussed with the patient who expressed understanding and agreement. All questions were answered. Thank you for involving us in the care of your patient. Please call with any questions. Discussed and reviewed with . Subjective Principal diagnosis: Bacteremia, ARIEL Interval history: Patient states she feels great today. Denies complaints. Objective Vital Signs, Last 4 Hours Temp Pulse Resp BP Pulse Ox 06/30/17 11:51 98.1 F 62 16 105/63 98 General: Conversant, No Apparent Distress HEENT: Atraumatic, Normocephaly, Mucus Membranes Moist Neck: No JVD, Normal carotid pulses Cardiac: Reg Rate and Rhythm, Normal S1 and S2, No Murmur Lungs: Normal Breath Sounds, No Wheeze, Rales, Rhonchi Neuro: Alert and responsive, No focal deficits noted Abdomen: Soft, Non-Tender Skin: No rashes noted on visualized skin Musculoskeletal: No Chest Wall Tenderness Extremities: No Clubbing, No Cyanosis, No Edema, Normal Pulses Results 06/29/17 04:45 06/29/17 04:[address] 06/29/17 16:00 IMPRESSION: 1. Large amount of stool within the colon. Correlate with clinical evidence of constipation. 2. Mural thickening of the distal esophagus. Correlate with clinical evidence of esophagitis. 3. Punctate hyperdense lesion extending from the left kidney, probably hyperdense cyst. Nonemergent ultrasound could be performed to confirm the cystic nature of that. 4. Large amount of stool within the colon. Correlate with clinical evidence of constipation. 5. Patchy atelectasis in the lower lungs bilaterally. 6. Age-indeterminate but probably chronic fracture involving the inferior endplate of L1. 7. Note that the pelvis was not imaged on today's exam. D/ / Vicente Craft MD / Vicente Craft MD Interpreting Provider: Vicente Craft MD Echocardiogram 06/30/17 16:00 Impressions: LVEF 30%. Mildly dilated left ventricle. Severe global left ventricular systolic dysfunction. Atypical septal motion consistent with paced rhythm. Mild left ventricular diastolic dysfunction. Normal right ventricular structure and function. Severely dilated left atrium. Mild aortic valve sclerosis. Mean gradient 12 mmHg. Mild mitral regurgitation. No evidence of pulmonary hypertension. No vegetations visualized on the intracardiac structures or portions of the device lead visualized. Repeat study or consider TERRI as clinically indicated. Left Ventricular Wall Motion: Rest Echo Findings The apex, apical inferior, mid inferior, basal inferior, apical anterior, mid anterior, basal anterior, apical septal, mid inferior septal, basal inferior septal, apical lateral, mid anterior lateral, basal anterior lateral, mid anterior septal, mid inferior lateral, basal anterior septal and basal inferior lateral spencer were hypokinetic. Findings: Study Quality * Technically adequate exam. ECG Findings * Normal sinus rhythm. Left Ventricle * LVEF 30%. * Mildly dilated left ventricle. * Severe global left ventricular systolic dysfunction. * Atypical septal motion consistent with paced rhythm. * Mild left ventricular diastolic dysfunction. Right Ventricle * Normal right ventricular structure and function. Left Atrium * Severely dilated left atrium. Right Atrium * Mildly dilated right atrium. Interatrial Septum * Interatrial septum not well evaluated. Aortic Valve * Aortic valve not well visualized. * Grossly, it appears sclerotic. * No aortic regurgitation. * Mild aortic valve sclerosis. Mean gradient 12 mmHg. Mitral Valve * Mild mitral annular calcification * Mild mitral regurgitation. * No mitral stenosis. Tricuspid Valve * Normal tricuspid valve structure and function. * Trace tricuspid regurgitation. * No evidence of pulmonary hypertension. Pulmonic Valve * Normal pulmonic valve structure and function. * No pulmonic regurgitation. Aorta * Normally sized aortic root. Pericardium * The pericardium appears normal. IVC * Normal IVC dimensions and inspiratory collapse. Pulmonary Artery * Normal visualized portions of the main pulmonary artery. Device lead * A device lead was visualized in the right atrium and right ventricle. Active Medications Allopurinol (Zyloprim) 300 mg PO DAILY ERNESTINA Stop: 12/26/17 09:01 Last Admin: 06/30/17 09:28 Dose: 300 mg Amiodarone HCl (Cordarone) 200 mg PO DAILY ERNESTINA Stop: 12/26/17 09:01 Last Admin: 06/30/17 09:29 Dose: 200 mg Aspirin (Aspirin Ec) 81 mg PO DAILY ERNESTINA Stop: 12/26/17 09:01 Last Admin: 06/30/17 09:29 Dose: 81 mg Atorvastatin Calcium (Lipitor) 40 mg PO HS ERNESTINA Stop: 12/25/17 21:01 Last Admin: 06/29/17 21:29 Dose: 40 mg Ferrous Sulfate (Ferrous Sulfate) 325 mg PO BID ERNESTINA Stop: 12/25/17 21:01 Last Admin: 06/30/17 09:29 Dose: 325 mg Gabapentin (Neurontin) 300 mg PO TID ERNESTINA Stop: 12/25/17 21:01 Last Admin: 06/30/17 09:28 Dose: 300 mg Ceftriaxone Sodium 2,000 mg/ (Sterile Water) 20 mls @ 600 mls/hr IVP DAILY ERNESTINA Stop: 12/30/17 09:01 Last Admin: 06/30/17 09:28 Dose: 600 mls/hr Levothyroxine Sodium (Synthroid) 112 mcg PO 0630 ERNESTINA Stop: 12/26/17 06:31 Last Admin: 06/30/17 06:18 Dose: 112 mcg Naloxone HCl (Narcan) 0.4 mg IVP Q2MIN PRN PRN Reason: SEE COMMENTS Stop: 12/25/17 17:26 Prednisone (Prednisone) 10 mg PO DAILY ERNESTINA Stop: 12/26/17 09:01 Last Admin: 06/30/17 09:29 Dose: 10 mg Rivaroxaban (Xarelto) 15 mg PO DAILY ERNESTINA Stop: 12/26/17 09:01 Last Admin: 06/30/17 09:29 Dose: 15 mg Vitamin D (Vitamin D) 1,000 unit PO DAILY ERNESTINA Stop: 12/26/17 09:01 Last Admin: 06/30/17 09:29 Dose: 1,000 unit Microbiology 06/26/17 06:55 Peripheral Venipuncture Blood Culture - Final Strep gallolyticus ssp galloly Laboratory Tests 06/26/17 06/29/17 06/29/17 06:50 04:45 04:45 Hgb 10.1 L Creatinine 0.79 Streptococcus sp PCR DETECTED A - Imaging and Cardiology Chest Xray: report reviewed Echo: report reviewed - EKG Interpretation EKG results cardiology: other (Telemetry reviewed with average HR previous 12 hours noted to be 63, SR with intermittent pacing. PVCs noted.) Consult Discharge Plan - Plan Referrals: Tye Arellano MD [Primary Care Provider] -
[2017-06-30 15:28] LABS: Albumin 3.3 g/dL (3.5-5.7); Albumin/Globulin Ratio 1.5 (1.1-2.2); Bilirubin,Direct 0.1 mg/dL (0.0-0.2); Bilirubin,Indirect 0.1 mg/dL (0.0-1.2); Bilirubin,Total 0.2 mg/dL (0.3-1.0); Globulin 2.2 g/dL (2.4-3.5); Total Protein 5.5 g/dL (6.4-8.9)
--- NOTE | 2017-06-30 16:43 | Internal Med Progress Note ---
Date of Encounter: 06/30/17 Time of Encounter: 16:41 - Assessment and plan (1) ARIEL (acute kidney injury) Current Visit: Yes Status: Acute Assessment and plan: Resolved 1 creatinine was 1.5 on presentation was most likely related to over diuresis. It has improved now to less than 1 resume Lasix upon discharge Monitor intake and output Avoid nephrotoxins Monitor electrolytes and creatinine (2) Bacteremia Current Visit: Yes Status: Acute Assessment and plan: Reviewed the chart and consulted ID before discharge to f/u on blodd cultures with no clear source. According to ID the patient will need repeat blood cultures. They wrote as folllows and we appreciate their imput Causative organism: Strep gallolyticus Source unclear, possible intra-abdominal source. Abdominal exam benign, but LFTs were mildly elevated on admission. Complicated due to AICD and left shoulder hardware. Blood cultures drawn 06/25/17 at [facility] ER were positive 1/1 sets for S. gallolyticus. Repeat blood cultures drawn here 06/26/17 are positive 2/2 sets for S. gallolyticus. No endocarditis stigmata noted on exam. The patient has one major Modified Arita' s Criteria. The patient does have a murmur, but previous documentation reports that it was there previously. Clinically, the patient looks good. She had some hypotension on presentation to the ED, but not sure if this was from the infection vs. overdiuresis from lasix. Mat need TTE. May need to consider TERRI prior to discharge. Get CT of the abdomen and pelvis with oral contrast. Repeat blood cultures x 2 sets now. Consulting EP now that we have positive blood cultures in the setting of a patient with AICD. Continue Rocephin, increase to 2 grams IV daily. Duration of treatment depends on the clinical picture. Monitor renal function and dose-adjust antibiotics. initial blood cultures positive for gram-positive cocci second also positive. Rocephin awaiting sensitivity (3) UTI (urinary tract infection) Current Visit: Yes Status: Acute Assessment and plan: urinalysis positive for UTI initial preliminary blood cultures positive for gram-positive cocci-second set also positive continue with Rocephin Not sure if this is a true infection at patient had no urinary symptoms. Differential UTI versus asymptomatic bacteriuria Qualifiers: Urinary tract infection type: acute cystitis Hematuria presence: without hematuria Qualified Code(s): N30.00 - Acute cystitis without hematuria (4) CHF (congestive heart failure) Current Visit: No Status: Chronic Assessment and plan: Stable, continue to hold Lasix Monitor intake and output daily weights Low-sodium diet Qualifiers: Congestive heart failure type: unspecified Congestive heart failure chronicity: chronic Qualified Code(s): I50.9 - Heart failure, unspecified - Subjective Interval history: Denied any complaints including chest pain, shortness of breath, fever, chills, sweats, abdominal pain or discomfort, urinary symptoms, or dizziness or syncope. Discussed plan of care and she has no questions - Constitutional Vitals: Temp Pulse Resp BP Pulse Ox 98.2 F 60 16 99/62 97 06/30/17 15:47 06/30/17 15:47 06/30/17 15:47 06/30/17 15:47 06/30/17 15:47 General appearance: Present: cooperative, A&O X 3, pleasant, no acute distress, answers questions appropriately - Head Head exam: Present: atraumatic, normocephalic - Eye Eye exam: Present: PERRL, conjuntiva pink, sclera anicteric Pupils: Present: PERRL - Neck Neck exam general surgery: Present: supple, trachea midline. Absent: lymphadenopathy - Respiratory Respiratory exam: Present: CTAB. Absent: accessory muscle use, rales, rhonchi, wheezes - Cardiovascular Cardiovascular exam: Present: RRR, +S1, +S2. Absent: diastolic murmur, gallop, rubs, systolic murmur - GI/Abdominal GI/Abdominal exam: Present: normal bowel sounds, soft, no peritoneal signs. Absent: distended, tenderness - Extremities Exam Extremities exam: Present: warm, radial pulses palpable and symmetrical. Absent : calf tenderness, cyanotic, pedal edema - Neurological Exam Neurological exam: Present: CN II-XII intact, oriented X3, no focal deficits. Absent: pronater drift, facial droop, speech deficit - Skin Skin exam: Present: dry, intact, warm Internal Medicine: Result - Labs CBC & Chem 7: 06/29/17 04:45 06/29/17 04:45 Labs: Liver Function 06/30/17 Range/Units 14:42 Total Bilirubin 0.2 L (0.3-1.0) mg/dL Direct Bilirubin 0.1 (0.0-0.2) mg/dL AST 159 H (13-39) Units/L ALT 324 H (7-52) Units/L Alkaline Phosphatase 92 (34-104) Units/L Albumin 3.3 L (3.5-5.7) g/dL - Impressions Impressions Abdomen CT 06/29/17 16:00 IMPRESSION: 1. Large amount of stool within the colon. Correlate with clinical evidence of constipation. 2. Mural thickening of the distal esophagus. Correlate with clinical evidence of esophagitis. 3. Punctate hyperdense lesion extending from the left kidney, probably hyperdense cyst. Nonemergent ultrasound could be performed to confirm the cystic nature of that. 4. Large amount of stool within the colon. Correlate with clinical evidence of constipation. 5. Patchy atelectasis in the lower lungs bilaterally. 6. Age-indeterminate but probably chronic fracture involving the inferior endplate of L1. 7. Note that the pelvis was not imaged on today's exam. D/ / Vicente Craft MD / Vicente Craft MD Interpreting Provider: Vicente Craft MD Echocardiogram 06/30/17 16:00 Impressions: LVEF 30%. Mildly dilated left ventricle. Severe global left ventricular systolic dysfunction. Atypical septal motion consistent with paced rhythm. Mild left ventricular diastolic dysfunction. Normal right ventricular structure and function. Severely dilated left atrium. Mild aortic valve sclerosis. Mean gradient 12 mmHg. Mild mitral regurgitation. No evidence of pulmonary hypertension. No vegetations visualized on the intracardiac structures or portions of the device lead visualized. Repeat study or consider TERRI as clinically indicated. Left Ventricular Wall Motion: Rest Echo Findings The apex, apical inferior, mid inferior, basal inferior, apical anterior, mid anterior, basal anterior, apical septal, mid inferior septal, basal inferior septal, apical lateral, mid anterior lateral, basal anterior lateral, mid anterior septal, mid inferior lateral, basal anterior septal and basal inferior lateral spencer were hypokinetic. Findings: Study Quality * Technically adequate exam. ECG Findings * Normal sinus rhythm. Left Ventricle * LVEF 30%. * Mildly dilated left ventricle. * Severe global left ventricular systolic dysfunction. * Atypical septal motion consistent with paced rhythm. * Mild left ventricular diastolic dysfunction. Right Ventricle * Normal right ventricular structure and function. Left Atrium * Severely dilated left atrium. Right Atrium * Mildly dilated right atrium. Interatrial Septum * Interatrial septum not well evaluated. Aortic Valve * Aortic valve not well visualized. * Grossly, it appears sclerotic. * No aortic regurgitation. * Mild aortic valve sclerosis. Mean gradient 12 mmHg. Mitral Valve * Mild mitral annular calcification * Mild mitral regurgitation. * No mitral stenosis. Tricuspid Valve * Normal tricuspid valve structure and function. * Trace tricuspid regurgitation. * No evidence of pulmonary hypertension. Pulmonic Valve * Normal pulmonic valve structure and function. * No pulmonic regurgitation. Aorta * Normally sized aortic root. Pericardium * The pericardium appears normal. IVC * Normal IVC dimensions and inspiratory collapse. Pulmonary Artery * Normal visualized portions of the main pulmonary artery. Device lead * A device lead was visualized in the right atrium and right ventricle. Consult Discharge Plan - Plan Referrals: Tye Arellano MD [Primary Care Provider] -
[2017-06-30] MEDS: hydrALAZINE 25 MG TABLET PO SCH (23:32)
[2017-07-01 08:38] LABS: Hematocrit 32.2 % (35.3-44.9); Hemoglobin 9.8 g/dL (11.5-15.4); Mean Corpuscular HGB Conc 30.4 g/dL (31.6-35.5); Mean Corpuscular Hemoglobin 27.3 pg (28.0-33.3); Mean Corpuscular Volume 89.7 fL (83.0-100.0); Mean Platelet Volume 11.7 fL (9.4-12.4); Platelet Count 191 K/mcL (140-400); Red Blood Count 3.59 M/mcL (3.82-4.97); Red Cell Distribution Width 17.3 % (11.5-14.5)
[2017-07-01] MEDS: Gabapentin 300 MG CAPSULE PO SCH ×3 (08:40→20:24)
[2017-07-01] MEDS: Cholecalciferol (D-3) 1,000 UNIT TABLET PO SCH (08:40)
[2017-07-01] MEDS: Aspirin Enteric Coated 81 MG Tablet PO SCH (08:40)
[2017-07-01] MEDS: cefTRIAXone 2,000 MG in Water for inj. (sterile) 20 ML 20 ML IVP SCH (08:40)
[2017-07-01] MEDS: predniSONE 10 MG TABLET PO SCH (08:40)
[2017-07-01] MEDS: *HR* Amiodarone 200 MG TABLET PO SCH (08:40)
[2017-07-01] MEDS: *HR* Rivaroxaban 15 MG TABLET PO SCH (08:41)
[2017-07-01 08:53] LABS: BUN/Creatinine Ratio 26 (6-26); Blood Urea Nitrogen 21 mg/dL (8-23); Calcium 9.1 mg/dL (8.6-10.3); Carbon Dioxide 30 mEq/L (23-29); Chloride 109 mEq/L (98-107); Glucose 88 mg/dL (70-105); Osmolality,Calculated 296 (280-300); Potassium 3.7 mEq/L (3.5-5.1); Sodium 142 mEq/L (136-145); eGFR For African Americans > 60 (> 60); eGFR For Non-African Americans > 60 (> 60)
--- NOTE | 2017-07-01 10:06 | Event Note ---
Date of Encounter: 07/01/17 Time of Encounter: 09:00 - Cardiology Event Note Discussed possible need for TERRI today with Dr.John Nelson who recommends proceeding with TERRI. RIsks versus benefits of TERRI explained to patient, states agreeable to proceed. Hemoglobin 9.8, baseline Hgbs 9-10s. Discussed with . Further recommendations pending TERRI.
--- NOTE | 2017-07-01 10:35 | Infectious Disease Progress No ---
Date of Encounter: 07/01/17 Time of Encounter: 10:33 - Assessment and Plan (1) Hypotension Current Visit: Yes Status: Resolved The patient had hypotension upon arrival to the ED with systolic BP in the 80's. Likely secondary to overdiuresis, but could be related to bacteremia as well. Improved with IV fluid resuscitation. Qualifiers: Hypotension type: unspecified hypotension type Qualified Code(s): I95.9 - Hypotension, unspecified (2) Bacteremia Current Visit: Yes Status: Acute Causative organism: Strep gallolyticus Source unclear, possible intra-abdominal source. Abdominal exam benign, but LFTs were mildly elevated on admission. Complicated due to AICD and left shoulder hardware. Blood cultures drawn 06/25/17 at [facility] ER were positive 1/1 sets for S. gallolyticus. Repeat blood cultures drawn here 06/26/17 are positive 2/2 sets for S. gallolyticus. No endocarditis stigmata noted on exam. The patient has one major Modified Arita' s Criteria. The patient does have a murmur, but previous documentation reports that it was there previously. Clinically, the patient looks good. She had some hypotension on presentation to the ED, but not sure if this was from the infection vs. overdiuresis from lasix. TTE negative for vegetations. Recommend TERRI.--> scheduled for today. CT of the abdomen showed constipation and what appears to be a renal cyst, but no other acute findings. Repeat blood cultures x 2 sets drawn 06/29/17 are NGTD. Cardiology following. Continue Rocephin 2 grams IV daily. Duration of treatment depends on the clinical picture. Monitor renal function and dose-adjust antibiotics. (3) UTI (urinary tract infection) Current Visit: Yes Status: Acute UTI vs. asymptomatic bacteriuria. Causative organism: E. coli. Not sure that this is a true infection since the patient did not have any urinary symptoms. Continue Rocephin as stated above. Qualifiers: Urinary tract infection type: acute cystitis Hematuria presence: without hematuria Qualified Code(s): N30.00 - Acute cystitis without hematuria (4) ARIEL (acute kidney injury) Current Visit: Yes Status: Resolved Likely multifactorial: overuse of diuretics + infectious process. Resolved. Continue trend. Dose-adjust antibiotics. Avoid nephrotoxins as able. (5) Weakness Current Visit: Yes Status: Resolved Likely multifactorial: ARIEL + infection + overdiuresis. CT head negative. Improved. (6) Atrial fibrillation Current Visit: No Status: Chronic Rate controlled. Cardiology consulted. Qualifiers: Atrial fibrillation type: unspecified Qualified Code(s): I48.91 - Unspecified atrial fibrillation (7) CHF (congestive heart failure) Current Visit: No Status: Chronic Qualifiers: Congestive heart failure type: unspecified Congestive heart failure chronicity: chronic Qualified Code(s): I50.9 - Heart failure, unspecified (8) COPD (chronic obstructive pulmonary disease) Current Visit: No Status: Chronic Qualifiers: COPD type: unspecified COPD Qualified Code(s): J44.9 - Chronic obstructive pulmonary disease, unspecified (9) Chronic back pain Current Visit: No Status: Chronic Vertebral tenderness noted at the site of the patient's chronic back pain, but not markedly tender. Continue to monitor closely for worsening back pain. 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 AST and ALT worse on repeat labs. Abdominal exam benign. CT abdomen negative for liver abnormality, but limited due to the lack of IV contrast. Could be secondary to chronic use of allopurinol, but consider other causes. Consider GI consult as an outpatient. (12) Elevated troponin Current Visit: Yes Status: Acute Troponin peaked at 0.06. Cardiology consulted --> likely secondary to demand ischemia and ARIEL. (13) Renal cyst Current Visit: Yes Status: Acute CT of the abdomen showed a punctate hyperdense lesion extending from the left kidney, probably a hyperdense cysts. Recommed UTS of the left kidney to evaluate further. - Subjective Interval history: Patient seen and examined. No acute events noted overnight. Patient states that overall she feels well today. Denies fevers, chills, or rigors. Denies chest pain, shortness of breath, or cough. Denies nausea, vomiting, or diarrhea, but states her abdomen is a little uncomfortable because she didn't eat much dinner and she is NPO this morning. Reports she has had a BM daily since being admitted. Denies urinary complaints. Denies back or extremity pain. Denies abdominal pain and states her appetite is good. Denies oral thrush or skin lesions. Infect Dis PN-Objective Data - Labs CBC & Chem 7: 07/01/17 08:30 07/01/17 08:30 Labs: Laboratory Results - last 24 hr 06/29/17 06/30/17 06/30/17 21:30 08:02 11:53 WBC RBC Hgb Hct MCV MCH MCHC RDW Plt Count MPV Sodium Potassium Chloride Carbon Dioxide BUN Creatinine Est GFR ( Amer) Est GFR (Non-Af Amer) BUN/Creatinine Ratio Glucose POC Glucose 118 H 76 126 H Calculated Osmolality Calcium Total Bilirubin Direct Bilirubin Indirect Bilirubin AST ALT Alkaline Phosphatase Serum Total Protein Albumin Globulin Albumin/Globulin Ratio 06/30/17 06/30/17 07/01/17 14:42 16:32 08:30 WBC 6.8 RBC 3.59 L Hgb 9.8 L Hct 32.2 L MCV 89.7 MCH 27.3 L MCHC 30.4 L RDW 17.3 H Plt Count 191 MPV 11.7 Sodium Potassium Chloride Carbon Dioxide BUN Creatinine Est GFR ( Amer) Est GFR (Non-Af Amer) BUN/Creatinine Ratio Glucose POC Glucose 189 H Calculated Osmolality Calcium Total Bilirubin 0.2 L Direct Bilirubin 0.1 Indirect Bilirubin 0.1 AST 159 H ALT 324 H Alkaline Phosphatase 92 Serum Total Protein 5.5 L Albumin 3.3 L Globulin 2.2 L Albumin/Globulin Ratio 1.5 07/01/17 08:30 WBC RBC Hgb Hct MCV MCH MCHC RDW Plt Count MPV Sodium 142 Potassium 3.7 Chloride 109 H Carbon Dioxide 30 H BUN 21 Creatinine 0.81 Est GFR ( Amer) > 60 Est GFR (Non-Af Amer) > 60 BUN/Creatinine Ratio 26 Glucose 88 POC Glucose Calculated Osmolality 296 Calcium 9.1 Total Bilirubin Direct Bilirubin Indirect Bilirubin AST ALT Alkaline Phosphatase Serum Total Protein Albumin Globulin Albumin/Globulin Ratio Cultures: Cultures 06/29/17 15:56 Blood Culture - Preliminary Peripheral Venipuncture No growth. 06/29/17 15:56 Blood Culture - Preliminary Peripheral Venipuncture No growth. 06/26/17 06:50 Blood Culture - Final Peripheral Venipuncture Strep gallolyticus ssp galloly 06/26/17 06:55 Blood Culture - Final Peripheral Venipuncture Strep gallolyticus ssp galloly Serology 06/26/17 Range/Units 06:50 A. baumannii (PCR) Not Detected (Not Detect) Kenzie albicans (PCR) Not Detected (Not Detect) C. glabrata (PCR) Not Detected (Not Detect) C. krusei (PCR) Not Detected (Not Detect) C. parapsilosis (PCR) Not Detected (Not Detect) C. tropicalis (PCR) Not Detected (Not Detect) Enterobacteriac sp PCR Not Detected (Not Detect) E. cloacae complex PCR Not Detected (Not Detect) Enterococcus sp PCR Not Detected (Not Detect) E. coli (PCR) Not Detected (Not Detect) H. influenzae (PCR) Not Detected (Not Detect) Klebsiella oxytoca PCR Not Detected (Not Detect) Klebsiella pneumoniae Not Detected (Not Detect) List. monocytogenes PCR Not Detected (Not Detect) N. meningitidis (PCR) Not Detected (Not Detect) Proteus species (PCR) Not Detected (Not Detect) Serratia marcescens PCR Not Detected (Not Detect) Staphylococcus sp PCR Not Detected (Not Detect) Staph aureus (PCR) Not Detected (Not Detect) mecA-Methicil Res Gene N/A (Not Detect) Streptococcus sp PCR DETECTED A (Not Detect) Group A Strep DNA Not Detected (Not Detect) Group B Strep (PCR) Not Detected (Not Detect) Strep pneumoniae (PCR) Not Detected (Not Detect) P. aeruginosa (PCR) Not Detected (Not Detect) Brown/B-Vanco Res Genes N/A (Not Detect) KPC (blaKPC) Detect PCR N/A (Not Detect) Exam - Constitutional Vitals: Temp Pulse Resp BP Pulse Ox 98.4 F 60 16 102/56 97 07/01/17 07:52 07/01/17 07:52 07/01/17 07:52 07/01/17 07:52 07/01/17 07:52 General appearance: average body habitus, cooperative, no acute distress - Head Head exam: Present: atraumatic, normal inspection, normocephalic - Eye Eye exam: Present: EOMI, normal appearance, PERRL Pupils: Present: normal accommodation Additional comments: No subcojunctival hemorrhage noted. - ENT ENT exam: Present: mucous membranes moist - Neck Neck exam: Present: normal inspection - Respiratory Respiratory exam: Present: CTAB. Absent: rales, respiratory distress, rhonchi, wheezes - Cardiovascular Cardiovascular exam: Present: RRR, +S1, +S2 - GI/Abdominal GI/Abdominal exam: Present: soft. Absent: distended, normal bowel sounds, tenderness - Extremities Exam Extremities exam: Present: normal inspection. Absent: joint swelling, pedal edema, tenderness - Neurological Exam Neurological exam: Present: alert, oriented X3, no focal deficits - Psychiatric Psychiatric exam: Present: normal affect, normal mood - Skin Skin exam: Present: dry, intact, normal color, warm Additional comments: No endocarditis stigmata noted. Consult Discharge Plan - Plan Referrals: Tye Arellano MD [Primary Care Provider] -
[2017-07-01] MEDS ORDERED: Lidocaine Viscous Oral Soln 15 ML SOLUTION MM PRN (12:08)
[2017-07-01] MEDS ORDERED: *HR* FentaNYL (PF) 100 MCG/2 ML VIAL IVP PRN (12:08)
[2017-07-01] MEDS ORDERED: *HR* Midazolam HCl 5 MG/5 ML VIAL IVP PRN (12:09)
[2017-07-01] MEDS ORDERED: Tetracaine/Benzocaine/Butamben 200MG/SPRAY (100SPY/BOT) MM ONE (12:09)
[2017-07-01] MEDS ORDERED: 0.9 % Sodium Chloride 500 ML IVC ONE (12:09)
--- NOTE | 2017-07-01 17:42 | Internal Med Progress Note ---
Date of Encounter: 07/01/17 Time of Encounter: 17:38 - Assessment and plan (1) ARIEL (acute kidney injury) Current Visit: Yes Status: Resolved Assessment and plan: Resolved 1 creatinine was 1.5 on presentation was most likely related to over diuresis. It has improved now to less than 1 resume Lasix upon discharge Monitor intake and output Avoid nephrotoxins (2) Bacteremia Current Visit: Yes Status: Acute Assessment and plan: Reviewed the chart and consulted ID before discharge to f/u on blodd cultures with no clear source. According to ID the patient will need repeat blood cultures. They wrote as folllows and we appreciate their imput Causative organism: Strep gallolyticus Source unclear, possible intra-abdominal source. Abdominal exam benign, but LFTs were mildly elevated on admission. Complicated due to AICD and left shoulder hardware. Blood cultures drawn 06/25/17 at [facility] ER were positive 1/1 sets for S. gallolyticus. Repeat blood cultures drawn here 06/26/17 are positive 2/2 sets for S. gallolyticus. No endocarditis stigmata noted on exam. The patient has one major Modified Arita' s Criteria. The patient does have a murmur, but previous documentation reports that it was there previously. Clinically, the patient looks good. She had some hypotension on presentation to the ED, but not sure if this was from the infection vs. overdiuresis from lasix. TTE. Completed reviewed report but unable to view pacer leads so defer to infectious disease on if she may go home on amoxicillin for 2 weeks as previously discussed CT of the abdomen and pelvis with oral contrast. blood cultures x 2 sets Consuled EP now that we have positive blood cultures in the setting of a patient with AICD, TTE completed. Continue Rocephin, increase to 2 grams IV daily. Duration of treatment depends on the clinical picture. Monitor renal function and dose-adjust antibiotics. initial blood cultures positive for gram-positive cocci second also positive. (3) UTI (urinary tract infection) Current Visit: Yes Status: Acute Assessment and plan: urinalysis positive for UTI initial preliminary blood cultures positive for gram-positive cocci-second set also positive continue with Rocephin Not sure if this is a true infection at patient had no urinary symptoms. Differential is UTI versus asymptomatic bacteriuria Qualifiers: Urinary tract infection type: acute cystitis Hematuria presence: without hematuria Qualified Code(s): N30.00 - Acute cystitis without hematuria (4) CHF (congestive heart failure) Current Visit: No Status: Chronic Assessment and plan: Stable, continue to hold Lasix Monitor intake and output with daily weights Low-sodium diet Qualifiers: Congestive heart failure type: unspecified Congestive heart failure chronicity: chronic Qualified Code(s): I50.9 - Heart failure, unspecified - Subjective Interval history: No complaints including chest pain, shortness of breath, fever, chills, sweats, abdominal pain or discomfort, urinary symptoms, or dizziness or syncope. Discussed plan of care and she has no questions, anxiously awaiting discharge - Constitutional Vitals: Temp Pulse Resp BP Pulse Ox 97.7 F 99 16 112/54 95 07/01/17 15:34 07/01/17 15:34 07/01/17 15:34 07/01/17 15:34 07/01/17 15:34 General appearance: Present: cooperative, A&O X 3, pleasant, no acute distress, answers questions appropriately - Head Head exam: Present: atraumatic, normocephalic - Eye Eye exam: Present: PERRL, conjuntiva pink, sclera anicteric Pupils: Present: PERRL - Neck Neck exam general surgery: Present: supple, trachea midline. Absent: lymphadenopathy - Respiratory Respiratory exam: Present: CTAB. Absent: accessory muscle use, rales, rhonchi, wheezes - Cardiovascular Cardiovascular exam: Present: RRR, +S1, +S2. Absent: diastolic murmur, gallop, rubs, systolic murmur - GI/Abdominal GI/Abdominal exam: Present: normal bowel sounds, soft, no peritoneal signs. Absent: distended, tenderness - Extremities Exam Extremities exam: Present: warm, radial pulses palpable and symmetrical. Absent : calf tenderness, cyanotic, pedal edema - Neurological Exam Neurological exam: Present: CN II-XII intact, oriented X3, no focal deficits. Absent: pronater drift, facial droop, speech deficit - Skin Skin exam: Present: dry, intact, warm Internal Medicine: Result - Labs CBC & Chem 7: 07/01/17 08:30 07/01/17 08:30 Labs: Short CBC 07/01/17 Range/Units 08:30 WBC 6.8 (4.3-11.1) K/mcL Hgb 9.8 L (11.5-15.4) g/dL Hct 32.2 L (35.3-44.9) % Plt Count 191 (140-400) K/mcL BMP 07/01/17 08:30 Sodium 142 Potassium 3.7 Chloride 109 H Carbon Dioxide 30 H BUN 21 Creatinine 0.81 Glucose 88 Calcium 9.1 Consult Discharge Plan - Plan Referrals: Tye Arellano MD [Primary Care Provider] -
[2017-07-02] MEDS: Aspirin Enteric Coated 81 MG Tablet PO SCH (08:14)
[2017-07-02] MEDS: *HR* Amiodarone 200 MG TABLET PO SCH (08:14)
[2017-07-02] MEDS: Gabapentin 300 MG CAPSULE PO SCH (08:14)
[2017-07-02] MEDS: predniSONE 10 MG TABLET PO SCH (08:15)
[2017-07-02] MEDS: Cholecalciferol (D-3) 1,000 UNIT TABLET PO SCH (08:15)
[2017-07-02] MEDS: cefTRIAXone 2,000 MG in Water for inj. (sterile) 20 ML 20 ML IVP SCH (08:15)
[2017-07-02] MEDS: *HR* Rivaroxaban 15 MG TABLET PO SCH (08:15)
--- NOTE | 2017-07-02 08:22 | Event Note ---
Date of Encounter: 07/02/17 Time of Encounter: 08:21 - Cardiology Event Note TERRI yesterday with no visualized vegetations. Cardiology will sign off and will follow in outpatient setting. Follow up set.
--- NOTE | 2017-07-02 08:46 | Infectious Disease Progress No ---
Date of Encounter: 07/02/17 Time of Encounter: 08:44 - Assessment and Plan (1) Hypotension Current Visit: Yes Status: Resolved The patient had hypotension upon arrival to the ED with systolic BP in the 80's. Likely secondary to overdiuresis, but could be related to bacteremia as well. Improved with IV fluid resuscitation. Qualifiers: Hypotension type: unspecified hypotension type Qualified Code(s): I95.9 - Hypotension, unspecified (2) Bacteremia Current Visit: Yes Status: Acute Causative organism: Strep gallolyticus Source unclear, possible intra-abdominal source. Abdominal exam benign, but LFTs were mildly elevated on admission. Complicated due to AICD and left shoulder hardware. Blood cultures drawn 06/25/17 at [facility] ER were positive 1/1 sets for S. gallolyticus. Repeat blood cultures drawn here 06/26/17 are positive 2/2 sets for S. gallolyticus. No endocarditis stigmata noted on exam. The patient has one major Modified Arita' s Criteria. The patient does have a murmur, but previous documentation reports that it was there previously. Clinically, the patient looks good. She had some hypotension on presentation to the ED, but not sure if this was from the infection vs. overdiuresis from lasix. TTE negative for vegetations. TERRI negative, but leads were not visualized. CT of the abdomen showed constipation and what appears to be a renal cyst, but no other acute findings. Repeat blood cultures x 2 sets drawn 06/29/17 are NGTD. Cardiology following. Continue Rocephin 2 grams IV daily. Duration of treatment depends on the clinical picture, but would recommend a total of 14 days of IV Rocephin from the first set of negative blood cultures. Monitor renal function and dose-adjust antibiotics. Consult VAT for EPIV placement. special services agent to assist with discharge planning. (3) UTI (urinary tract infection) Current Visit: Yes Status: Acute UTI vs. asymptomatic bacteriuria. Causative organism: E. coli. Not sure that this is a true infection since the patient did not have any urinary symptoms. Continue Rocephin as stated above. Qualifiers: Urinary tract infection type: acute cystitis Hematuria presence: without hematuria Qualified Code(s): N30.00 - Acute cystitis without hematuria (4) ARIEL (acute kidney injury) Current Visit: Yes Status: Resolved Likely multifactorial: overuse of diuretics + infectious process. Resolved. Continue trend. Dose-adjust antibiotics. Avoid nephrotoxins as able. (5) Weakness Current Visit: Yes Status: Resolved Likely multifactorial: ARIEL + infection + overdiuresis. CT head negative. Improved. (6) Atrial fibrillation Current Visit: No Status: Chronic Rate controlled. Cardiology consulted. Qualifiers: Atrial fibrillation type: unspecified Qualified Code(s): I48.91 - Unspecified atrial fibrillation (7) COPD (chronic obstructive pulmonary disease) Current Visit: No Status: Chronic Qualifiers: COPD type: unspecified COPD Qualified Code(s): J44.9 - Chronic obstructive pulmonary disease, unspecified (8) Chronic back pain Current Visit: No Status: Chronic Vertebral tenderness noted at the site of the patient's chronic back pain, but not markedly tender. Continue to monitor closely for worsening back pain. 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 AST and ALT worse on repeat labs. Abdominal exam benign. CT abdomen negative for liver abnormality, but limited due to the lack of IV contrast. Could be secondary to chronic use of allopurinol, but consider other causes. Consider GI consult as an outpatient. (11) Elevated troponin Current Visit: Yes Status: Acute Troponin peaked at 0.06. Cardiology consulted --> likely secondary to demand ischemia and ARIEL. (12) Renal cyst Current Visit: Yes Status: Acute CT of the abdomen showed a punctate hyperdense lesion extending from the left kidney, probably a hyperdense cysts. Recommed UTS of the left kidney to evaluate further. - Subjective Interval history: Patient seen and examined. No acute events noted overnight. Patient states that overall she feels well today. Denies fevers, chills, or rigors. Denies chest pain, shortness of breath, or cough. Denies nausea, vomiting, or diarrhea. Denies abdominal pain. Reports she has had a BM daily since being admitted. Denies urinary complaints. Denies back or extremity pain. Denies abdominal pain and states her appetite is good. Denies oral thrush or skin lesions. Infect Dis PN-Objective Data - Labs CBC & Chem 7: 07/01/17 08:30 07/01/17 08:30 Labs: Laboratory Results - last 24 hr 06/30/17 07/01/17 07/01/17 21:19 07:57 08:30 Sodium 142 Potassium 3.7 Chloride 109 H Carbon Dioxide 30 H BUN 21 Creatinine 0.81 Est GFR ( Amer) > 60 Est GFR (Non-Af Amer) > 60 BUN/Creatinine Ratio 26 Glucose 88 POC Glucose 116 H 88 Calculated Osmolality 296 Calcium 9.1 07/01/17 07/01/17 07/01/17 11:08 15:38 20:52 Sodium Potassium Chloride Carbon Dioxide BUN Creatinine Est GFR ( Amer) Est GFR (Non-Af Amer) BUN/Creatinine Ratio Glucose POC Glucose 116 H 194 H 121 H Calculated Osmolality Calcium Cultures: Cultures 06/29/17 15:56 Blood Culture - Preliminary Peripheral Venipuncture No growth. 06/29/17 15:56 Blood Culture - Preliminary Peripheral Venipuncture No growth. 06/26/17 06:50 Blood Culture - Final Peripheral Venipuncture Strep gallolyticus ssp galloly 06/26/17 06:55 Blood Culture - Final Peripheral Venipuncture Strep gallolyticus ssp galloly Serology 06/26/17 Range/Units 06:50 A. baumannii (PCR) Not Detected (Not Detect) Kenzie albicans (PCR) Not Detected (Not Detect) C. glabrata (PCR) Not Detected (Not Detect) C. krusei (PCR) Not Detected (Not Detect) C. parapsilosis (PCR) Not Detected (Not Detect) C. tropicalis (PCR) Not Detected (Not Detect) Enterobacteriac sp PCR Not Detected (Not Detect) E. cloacae complex PCR Not Detected (Not Detect) Enterococcus sp PCR Not Detected (Not Detect) E. coli (PCR) Not Detected (Not Detect) H. influenzae (PCR) Not Detected (Not Detect) Klebsiella oxytoca PCR Not Detected (Not Detect) Klebsiella pneumoniae Not Detected (Not Detect) List. monocytogenes PCR Not Detected (Not Detect) N. meningitidis (PCR) Not Detected (Not Detect) Proteus species (PCR) Not Detected (Not Detect) Serratia marcescens PCR Not Detected (Not Detect) Staphylococcus sp PCR Not Detected (Not Detect) Staph aureus (PCR) Not Detected (Not Detect) mecA-Methicil Res Gene N/A (Not Detect) Streptococcus sp PCR DETECTED A (Not Detect) Group A Strep DNA Not Detected (Not Detect) Group B Strep (PCR) Not Detected (Not Detect) Strep pneumoniae (PCR) Not Detected (Not Detect) P. aeruginosa (PCR) Not Detected (Not Detect) Brown/B-Vanco Res Genes N/A (Not Detect) KPC (blaKPC) Detect PCR N/A (Not Detect) Exam - Constitutional Vitals: Temp Pulse Resp BP Pulse Ox 98.4 F 70 15 109/71 95 07/02/17 07:09 07/02/17 07:09 07/02/17 07:09 07/02/17 07:09 07/02/17 07:09 General appearance: average body habitus, cooperative, no acute distress - Head Head exam: Present: atraumatic, normal inspection, normocephalic - Eye Eye exam: Present: EOMI, normal appearance, PERRL Pupils: Present: normal accommodation Additional comments: No subconjunctival hemorrhage noted. - ENT ENT exam: Present: mucous membranes moist - Neck Neck exam: Present: normal inspection - Respiratory Respiratory exam: Present: CTAB. Absent: rales, respiratory distress, rhonchi, wheezes - Cardiovascular Cardiovascular exam: Present: RRR, +S1, +S2, systolic murmur - GI/Abdominal GI/Abdominal exam: Present: normal bowel sounds, soft. Absent: distended, tenderness - Extremities Exam Extremities exam: Present: normal inspection. Absent: joint swelling, pedal edema, tenderness - Neurological Exam Neurological exam: Present: alert, oriented X3, no focal deficits - Psychiatric Psychiatric exam: Present: normal affect, normal mood - Skin Skin exam: Present: dry, intact, normal color, warm Additional comments: No endocarditis stigmata noted. Consult Discharge Plan - Plan Instructions: Ceftriaxone (Injection), Heart Failure (DC), Urinary Tract Infection in Women (DC), Chronic Obstructive Pulmonary Disease (DC), Sepsis (GEN ), Chronic Hypertension (DC) Referrals: Nick Larios MD [Partnered Physician] - 07/13/17 8:30 am Tye Arellano MD [Primary Care Provider] - Prescriptions: cefTRIAXone [Rocephin] 2,000 mg IVPB DAILY 10 Days #10 vial - Attending Attestation I examined this patient and my medical decision-making was reviewed with the Resident Physician. I agree with the documented findings, disposition and treatment plan as described except to the extent set forth below. I had a long discussion with the daughter was at bedside and explained to her why we are getting a CT of the abdomen pelvis and why she needs to see GI as an outpatient and why I requested TERRI. Questions answers concerns addressed. Patient to be discharged on Rocephin for 11 more days. Weekly labs while on Rocephin.
[2017-07-02 10:30] VITALS: BP 107/54
--- NOTE | 2017-07-02 12:19 | Physician Discharge Referral ---
Home Health/Hosp Referral Info Transfer to: Home Health Attending Provider: micaela storey - Diagnosis (1) ARIEL (acute kidney injury) Priority: Secondary Status: Resolved (2) Bacteremia Priority: Primary Status: Acute (3) UTI (urinary tract infection) Priority: Primary Status: Acute (4) CHF (congestive heart failure) Priority: Secondary Status: Chronic - Respiratory Orders Smoking Cessation: Smoking cessation has been advised. For more information, call the [place] Tobacco Quit Line at 9-857-FCBY-NOW. - Diet/Nutrition Diet/Nutrition Orders: No Added Salt (FRANK), Cardiac - Activity Activity Orders: Up ad frankie, Ambulate - Services Needed Following services are medically necessary services: Assisted Care Orders: Infectious disease patient will require a PICC line and IV antibiotics for 11 days, routine line care orders - Transfer Medications Prescriptions: cefTRIAXone [Rocephin] 2,000 mg IVPB DAILY 10 Days #10 vial Home Medications: Albuterol Sulfate [Ventolin Hfa] 2 puff IH Q4H PRN 06/25/17 [History] Allopurinol [Zyloprim] 300 mg PO DAILY 06/25/17 [History] Amiodarone [Cordarone] 200 mg PO DAILY 06/25/17 [History] Aspirin [Lo-Dose Aspirin EC] 81 mg PO DAILY 06/25/17 [History] Atorvastatin [Lipitor] 40 mg PO HS 06/25/17 [History] Cholecalciferol (D-3) [Vitamin D] 1,000 unit PO DAILY 06/25/17 [History] Ferrous Gluconate 324 mg PO BID 06/25/17 [History] Furosemide [Lasix] 40 mg PO DAILY 06/25/17 [History] Gabapentin [Neurontin] 300 mg PO 1200 06/25/17 [History] Gabapentin [Neurontin] 600 mg PO QAM AND QHS 06/25/17 [History] Levothyroxine [Synthroid] 112 mcg PO 0630 06/25/17 [History] Losartan Potassium [Cozaar] 50 mg PO DAILY 06/25/17 [History] Multivitamin [One Daily Multivitamin] 1 each PO DAILY 06/25/17 [History] Rivaroxaban [Xarelto] 15 mg PO HS 06/25/17 [History] Spironolactone [Aldactone] 25 mg PO DAILY 06/25/17 [History] Tramadol HCl [Ultram] 50 mg PO TID 06/25/17 [History] hydrALAZINE [HydrALAZINE] 25 mg PO BID 06/25/17 [History] predniSONE [PredniSONE] 10 mg PO DAILY 06/25/17 [History] cefTRIAXone [Rocephin] 2,000 mg IVPB DAILY 10 Days #10 vial 07/02/17 [Rx] Allergies/Adverse Reactions: 3 Allergy/AdvReac Type Severity Reaction Status Date / Time No Known Allergies Allergy Verified 04/24/17 09:45 Certification: Further, I certify that my clinical findings support that this patient is homebound (i.e. absences from home require considerable and taxing effort and are for medical reasons or muslim services or infrequently or short duration when for other reasons) because: Homebound Reason: Patient requires assistance of a person or device to safely leave home Attestation: My signature below is to certify that this patient is under my care and that I, or nurse practitioner, or a physician's web marketing assistant working with me, has a face-to -face encounter with this patient.
--- NOTE | 2017-07-02 12:46 | Discharge Summary ---
Date of Encounter: 07/02/17 Time of Encounter: 12:48 - Discharge Diagnosis (1) ARIEL (acute kidney injury) Priority: Secondary Status: Resolved Comments: Acute kidney injury has resolved with current BUN 21 and creatinine 0.81 (2) Bacteremia Priority: Primary Status: Acute Comments: Causative organism: Strep gallolyticus Source unclear, possible intra-abdominal source. Abdominal exam benign, but LFTs were mildly elevated on admission. Will need outpatient follow-up with GI in the next week or so. Patient does have issues with chronic constipation Complicated due to AICD and left shoulder hardware. Blood cultures drawn 06/25/17 at [facility] ER were positive 1/1 sets for S. gallolyticus. Repeat blood cultures drawn here 06/26/17 are positive 2/2 sets for S. gallolyticus. No endocarditis stigmata noted on exam. The patient has one major Modified Arita' s Criteria. The patient does have a murmur, but previous documentation reports that it was there previously. Clinically, the patient looks good. She had some hypotension on presentation to the ED, but not sure if this was from the infection vs. overdiuresis from lasix. TTE negative for vegetations. Recommend TERRI.--> Reviewed the report and unable to visualize the implanted devices sleeves so we will treat with IV antibiotics for [address] of the abdomen showed constipation and what appears to be a renal cyst, but no other acute findings. Repeat blood cultures x 2 sets drawn 06/29/17 are NGTD. Cardiology following. Continue Rocephin 2 grams IV daily for 10 days with home health and a line put in today for home. Follow-up with infectious disease as directed (3) UTI (urinary tract infection) Priority: Primary Status: Acute Comments: UTI vs. asymptomatic bacteriuria. Causative organism: E. coli. Not sure that this is a true infection since the patient did not have any urinary symptoms. Qualifiers: Urinary tract infection type: acute cystitis Hematuria presence: without hematuria Qualified Code(s): N30.00 - Acute cystitis without hematuria (4) CHF (congestive heart failure) Priority: Secondary Status: Acute Comments: She is stable regarding her congestive heart failure Echocardiogram completed with LVEF of 30% with a dilated left ventricle and severely dilated left atrium. Right ventricle is normal in size and function Qualifiers: Heart failure type: unspecified Qualified Code(s): I50.9 - Heart failure, unspecified - Discharge Medications Prescriptions: cefTRIAXone [Rocephin] 2,000 mg IVPB DAILY 10 Days #10 vial Home Medications: Albuterol Sulfate [Ventolin Hfa] 2 puff IH Q4H PRN 06/25/17 [History] Allopurinol [Zyloprim] 300 mg PO DAILY 06/25/17 [History] Amiodarone [Cordarone] 200 mg PO DAILY 06/25/17 [History] Aspirin [Lo-Dose Aspirin EC] 81 mg PO DAILY 06/25/17 [History] Atorvastatin [Lipitor] 40 mg PO HS 06/25/17 [History] Cholecalciferol (D-3) [Vitamin D] 1,000 unit PO DAILY 06/25/17 [History] Ferrous Gluconate 324 mg PO BID 06/25/17 [History] Furosemide [Lasix] 40 mg PO DAILY 06/25/17 [History] Gabapentin [Neurontin] 300 mg PO 1200 06/25/17 [History] Gabapentin [Neurontin] 600 mg PO QAM AND QHS 06/25/17 [History] Levothyroxine [Synthroid] 112 mcg PO 0630 06/25/17 [History] Losartan Potassium [Cozaar] 50 mg PO DAILY 06/25/17 [History] Multivitamin [One Daily Multivitamin] 1 each PO DAILY 06/25/17 [History] Rivaroxaban [Xarelto] 15 mg PO HS 06/25/17 [History] Spironolactone [Aldactone] 25 mg PO DAILY 06/25/17 [History] Tramadol HCl [Ultram] 50 mg PO TID 06/25/17 [History] hydrALAZINE [HydrALAZINE] 25 mg PO BID 06/25/17 [History] predniSONE [PredniSONE] 10 mg PO DAILY 06/25/17 [History] cefTRIAXone [Rocephin] 2,000 mg IVPB DAILY 10 Days #10 vial 07/02/17 [Rx] Allergies/Adverse Reactions: 3 Allergy/AdvReac Type Severity Reaction Status Date / Time No Known Allergies Allergy Verified 04/24/17 09:45 Procedures/tests Complete & Pending: Procedures Performed prior 72 hours Category Date Time Status CT abdomen wo iv oral only [CT] Routine Cat Scan 06/29/17 16:00 Completed EV TERRI transesophageal echo Routine Y 07/01/17 09:46 Completed EV echocardiogram Routine Y 06/30/17 16:00 Completed Date of admission: 06/26/17 16:39 Primary care physician: Tye Arellano MD Consults: 06/25/17 17:27 Consult to Physician [CONS] Routine Consulting Provider: Ivet Nelson Reason for Consult: SEVERE CMP WITH HYPOTENSION OVERDIURESED Time Notified: 17:28 Call Completed: No 06/26/17 16:44 Consult to Physical Therapy [CONS] Routine Comment: Evaluate, develop and implement POC Reason for Consult: Weakness 06/26/17 16:45 Consult to Occupational Therapy [CONS] Routine Comment: Evaluate, develop and implement POC Reason for Consult: Weakness 06/29/17 14:36 Consult to Infectious Diseases [CONS] Routine Consulting Provider: Infectious Disease [place] Reason for Consult: bacteremia Time Notified: 14:38 Call Completed: Yes 06/30/17 09:25 Consult to Electrophysiology (EP) [CONS] Routine Consulting Provider: Electrophysiology [place] Reason for Consult: bacteremia with AICD Time Notified: 09:25 Call Completed: Yes 07/02/17 08:46 Consult to Invasive Line Access Team [CONS] Routine Reason for Consult: Rocephin x 2 weeks Line Type: EPIV PICC line indications: terminologist Med/Antibiotic Time Notified: 08:46 Call Completed: Yes 07/02/17 08:57 Consult to Customer Service Analyst [CONS] Routine Reason for SW Consult: Home with IV atb Discharging clinician: Josie Davis Anticipated date of discharge: 07/02/17 - Patient Status Disposition: Home Health Service Condition: Good Functional capacity at discharge: independent ambulation Overall status at discharge: patient is progressing back to baseline - Discharge Instructions Follow Up With: Tye Arellano MD [Primary Care Provider] - - Diet and Activity Activity: resume usual activities as tolerated Diet: advance to your usual diet Interval History: Patient is sitting up on side of the bed taking and retain her breakfast without any difficulty. She denies chest pain, fever, chills, abdominal pain, diarrhea or constipation, no urinary symptoms, no dizziness or headache. She is very anxious for discharge. She is very animated when told that she will be going home today she verbalized understanding of the need for a line to be placed for home IV antibiotics and home health be following up with her. All her questions were answered. She will be going home with her daughter. Hospital course: Ms. Jay is a 87 year old female who developed bacteremia. Infectious disease was consulted. Please refer to the details under my assessment and plan. Infectious disease states it is very important for her to follow-up with gastroenterology to rule out a gastric source for this infection. - Time Spent with Patient Total time spent providing and/or coordinating discharge services: - Constitutional Vitals: Temp Pulse Resp BP Pulse Ox 98.7 F 60 15 107/54 98 07/02/17 10:29 07/02/17 10:29 07/02/17 10:29 07/02/17 10:29 07/02/17 10:29 General appearance: Present: cooperative, A&O X 3, pleasant, no acute distress, answers questions appropriately - Head Head exam: Present: atraumatic, normocephalic - Eye Eye exam: Present: PERRL, conjuntiva pink, sclera anicteric Pupils: Present: PERRL - Neck Neck exam general surgery: Present: supple, trachea midline. Absent: lymphadenopathy - Respiratory Respiratory exam: Present: CTAB. Absent: accessory muscle use, rales, rhonchi, wheezes - Cardiovascular Cardiovascular exam: Present: RRR, +S1, +S2. Absent: diastolic murmur, gallop, rubs, systolic murmur Additional comments: AICD pocket is without signs of inflammation or swelling and no discomfort - GI/Abdominal GI/Abdominal exam: Present: normal bowel sounds, soft, no peritoneal signs. Absent: distended, tenderness - Extremities Exam Extremities exam: Present: warm, radial pulses palpable and symmetrical. Absent : calf tenderness, cyanotic, pedal edema - Neurological Exam Neurological exam: Present: CN II-XII intact, oriented X3, no focal deficits. Absent: pronater drift, facial droop, speech deficit - Skin Skin exam: Present: dry, intact, warm
== END 2017-07-02 17:31 | disposition home health service (06) | DRG 690 ==
LOC: 3BNU
PROVIDERS: ADMIT Hospitalist; ATTEND Registered Nurse

== ENCOUNTER 2018-02-08 14:57 | Inpatient (IN) ==
--- NOTE | 2018-02-08 17:46 | Cardiology Consult Note ---
Date of Encounter: 02/08/18 Time of Encounter: 17:44 Assessment and Plan (1) AICD discharge Current Visit: Yes Status: Acute Monitor strip from ER showed monomorphic VT. - will check AICD tomorrow morning - continue amiodarone drip at 0.5mg/min - replace K to keep above 4 and Magnesium above 2 - trend troponin - obtain echocardiogram. - increasing her amiodarone dose may not be an option as patient has history of severe COPD and she has had respiratory failure in the past. She has chronic hypoxia, and her pulmonary function studies were abnormal before she was ever placed on amiodarone therapy. Pulmonary function studies in August, there was severe decrease in her diffusing capacity. - may need an angiogram to rule out ischemia before considering alternative antiarrhythmic (2) Ischemic cardiomyopathy Current Visit: Yes Status: Acute Continue aspirin 81mg daily, statin, losartan 50mg daily, lasix 40mg daily. Trend troponin. (3) Atrial fibrillation Current Visit: No Status: Chronic Continue amiodarone 200mg daily. Xarelto 15mg daily Qualifiers: Qualified Code(s): I48.2 - Chronic atrial fibrillation Discussion w patient/family: The assessment and plan as outlined above was discussed with the patient and/or family members who expressed understanding and agreement. All questions were answered. Thank you for involving us in the care of your patient. Please call with any questions. History of Present Illness Consult date: 02/08/18 History of present illness: Ms. Jay is a 87 year old female with hx of CAD s/p PTCA/Bare Metal Stent placement in the mid LAD 06/2015. She does have a history of an ischemic cardiomyopathy, with a decreased ejection fraction around 30% as at Jun 2017; a history of chronic congestive heart failure, and has a biventricular AICD device in place. This device was interrogated in August and working appropriately at that time. She has chronic congestive heart failure and on chronic medical therapy. She also has a history of atrial fibrillation, and has been placed on amiodarone 200mg daily, sent from [place] ER for AICD firing x 3 with one episode identified in the ER as VT. Patient did not feel a "shock" but was "out of it" per daughter who was present. She was started on amio drip in [place]. Daughter recalled she might have observed a similar event in late November this year but did not seek medical attention at the time. No chest pain, shortness of breath or palpitations. She had a mechanical fall 2 weeks ago, and broke her R arm, but denies syncope or palpitations prior to falling. She denies medication non-adherence; change in diet, vomiting or diarrhea Past Med Surg Social Fam HX - Past Medical History Medical history: arthritis, atrial fibrillation, cardiomyopathy, CHF, COPD, coronary artery disease, diabetes, hyperlipidemia, hypertension, myocardial infarction, thyroid disease, other Additional medical history: chronic bronchitis Psychiatric history: no psych history - Past Surgical History Surgical History: angioplasty/stent, appendectomy, cataract, cholecystectomy, hysterectomy, orthopedic, other, pacemaker/AICD, other Additional surgical history: LEFT SHOULDER REPLACEMENT - Social History Smoking Status: Former smoker Smokeless Tobacco Status: No Alcohol use: none Drug use: none - Family History Grandmother Family Member Ethnicity: Non- Living Status: Brother Family Member Ethnicity: Non- Living Status: Hx Family Respiratory Disorders: Yes (Emphysema) Mother Family Member Ethnicity: Non- Living Status: Hx Family Cardiac Disorders: Yes (HTN, CVA) Hx Family Neurologic Disorders: Yes (Status post CVA) Father Family Member Ethnicity: Non- Living Status: Hx Family Cardiac Disorders: Yes (HTN) Sister Family Member Ethnicity: Non- Living Status: Hx Family Cancer: Yes (Cervical) Hx Family Neuromuscular Disorders: Yes (History of Parkinson's disease) Medications and Allergies Albuterol Sulfate [Ventolin Hfa] 2 puff IH Q4H PRN 06/25/17 [History] Allopurinol [Zyloprim] 300 mg PO DAILY 06/25/17 [History] Amiodarone [Cordarone] 200 mg PO DAILY 06/25/17 [History] Aspirin [Lo-Dose Aspirin EC] 81 mg PO DAILY 06/25/17 [History] Atorvastatin [Lipitor] 40 mg PO HS 06/25/17 [History] Cholecalciferol (D-3) [Vitamin D] 1,000 unit PO DAILY 06/25/17 [History] Ferrous Gluconate 324 mg PO BID 06/25/17 [History] Furosemide [Lasix] 40 mg PO DAILY 06/25/17 [History] Gabapentin [Neurontin] 300 mg PO 1200 06/25/17 [History] Gabapentin [Neurontin] 600 mg PO QAM AND QHS 06/25/17 [History] Levothyroxine [Synthroid] 112 mcg PO 0630 06/25/17 [History] Losartan Potassium [Cozaar] 50 mg PO DAILY 06/25/17 [History] Multivitamin [One Daily Multivitamin] 1 each PO DAILY 06/25/17 [History] Rivaroxaban [Xarelto] 15 mg PO HS 06/25/17 [History] Tramadol HCl [Ultram] 50 mg PO TID 06/25/17 [History] Magnesium Oxide [Magnesium] 500 mg PO DAILY 02/08/18 [History] 3 Allergy/AdvReac Type Severity Reaction Status Date / Time No Known Allergies Allergy Verified 04/24/17 09:45 All Systems Review: The remainder of the systems were reviewed and are negative - Constitutional Constitutional: no anorexia, no chills, no fever(s), no weight gain - EENT Eyes: no blurred vision Nose, mouth and throat: no bleeding gums, no dysphagia - Cardiovascular Cardiovascular: as per HPI - Respiratory Respiratory: no cough, no dyspnea, no wheezing - Gastrointestinal Gastrointestinal: no abdominal pain - Genitourinary Genitourinary: no dysuria - Musculoskeletal Musculoskeletal: no abnormal gait - Integumentary Integumentary: no erythema - Neurological Neurological: no abnormal speech - Psychiatric Psychiatric: no anxiety - Hematological/Lymphatic Hematologic/Lymphatic: no easy bleeding Physical Examination Vital Signs, Last 4 Hours Temp Pulse Resp BP Pulse Ox 02/08/18 16:40 98.4 F 59 15 144/67 96 General: Conversant HEENT: Atraumatic Neck: No JVD Cardiac: Reg Rate and Rhythm Lungs: Normal Breath Sounds, No Wheeze, Rales, Rhonchi Neuro: Alert and responsive Abdomen: Soft Musculoskeletal: No Chest Wall Tenderness, Other (R upper extremity in sling) Extremities: No Edema Results - EKG Interpretation EKG results cardiology: personally reviewed (Paced rhythm) Consult Discharge Plan - Plan Referrals: Tye Arellano MD [Primary Care Provider] -
[2018-02-08] MEDS ORDERED: Naloxone 0.4 MG/ML INJ IVP PRN (19:04)
[2018-02-08] MEDS ORDERED: Amiodarone Premix 360 MG/200 ML BAG IVC ONE ×2 (19:13→19:32)
[2018-02-08] MEDS ORDERED: *HR* Amiodarone 200 MG TABLET PO SCH (19:15)
[2018-02-08] MEDS: Amiodarone Premix 360 MG/200 ML BAG IVC SCH (19:15)
[2018-02-08] MEDS ORDERED: D5% in 0.45% NACL 1,000 ML IVC SCH (19:15)
[2018-02-08 20:16] LABS: Basophils % 0.4 %; Eosinophils # 0.1 K/mcL (0.0-0.6); Eosinophils % 0.7 %; Hematocrit 32.1 % (35.3-44.9); Hemoglobin 10.2 g/dL (11.5-15.4); Immature Granulocytes % 0.2 % (0-4); Lymphocytes % 12.2 %; Mean Corpuscular HGB Conc 31.8 g/dL (31.6-35.5); Mean Corpuscular Hemoglobin 28.7 pg (28.0-33.3); Mean Corpuscular Volume 90.4 fL (83.0-100.0); Mean Platelet Volume 12.1 fL (9.4-12.4); Monocytes # 0.6 K/mcL (0.0-1.3); Neutrophils # 6.7 K/mcL (1.6-8.9); Platelet Count 219 K/mcL (140-400); Red Blood Count 3.55 M/mcL (3.82-4.97); Red Cell Distribution Width 16.5 % (11.5-14.5); Segmented Neutrophils % 79.5 %
--- NOTE | 2018-02-08 20:28 | Internal Med History&Physical ---
Date of Encounter: 02/08/18 Time of Encounter: 20:22 Internal Medicine - H&P: HPI Chief complaint: ICD firing associated with lightheadedness Admitted From: Home Plans for Post Hospital Care: Home History of present illness: Ms. Jay is a 87 year old female past medical history significant for arthritis , atrial fibrillation, cardiomyopathy, CAD S/P ptca/bare metal stent placementin the mid LAD in 06/2015, CHF e.f 30%, COPD, coronary artery disease, diabetes, hyperlipidemia, hypertension, myocardial infarction, thyroid disease. Patient was transferred to this hospital from [facility] after her AICD firing 3 times with one episode identified as V. tach. As per the patient on her way to the emergency room. She felt that her device fired a couple of times. She denies chest pain, shortness of breath or palpitation. But reports lightheadedness and dizziness. As per the patient daughter they were driving to the emergency room to have an X -ray of the right shoulder when the patient felt the AICD firing. As per the patient daughter the patient hit her right arm about 2 weeks ago and has been having pain in that extremity for which they were going to have an X-ray of the arm taken. Past Med Surg Social Fam HX - Past Medical History Medical history: arthritis, atrial fibrillation, cardiomyopathy, CHF, COPD, coronary artery disease, diabetes, hyperlipidemia, hypertension, myocardial infarction, thyroid disease, other Additional medical history: chronic bronchitis Psychiatric history: no psych history - Past Surgical History Surgical History: angioplasty/stent, appendectomy, cataract, cholecystectomy, hysterectomy, orthopedic, other, pacemaker/AICD, other Additional surgical history: LEFT SHOULDER REPLACEMENT - Social History Smoking Status: Former smoker Smokeless Tobacco Status: No Alcohol use: none Drug use: none - Family History Grandmother Family Member Ethnicity: Non- Living Status: Brother Family Member Ethnicity: Non- Living Status: Hx Family Respiratory Disorders: Yes (Emphysema) Mother Family Member Ethnicity: Non- Living Status: Hx Family Cardiac Disorders: Yes (HTN, CVA) Hx Family Neurologic Disorders: Yes (Status post CVA) Father Family Member Ethnicity: Non- Living Status: Hx Family Cardiac Disorders: Yes (HTN) Sister Family Member Ethnicity: Non- Living Status: Hx Family Cancer: Yes (Cervical) Hx Family Neuromuscular Disorders: Yes (History of Parkinson's disease) Internal Medicine - H&P: Meds Albuterol Sulfate [Ventolin Hfa] 2 puff IH Q4H PRN 06/25/17 [History] Allopurinol [Zyloprim] 300 mg PO DAILY 06/25/17 [History] Amiodarone [Cordarone] 200 mg PO DAILY 06/25/17 [History] Aspirin [Lo-Dose Aspirin EC] 81 mg PO DAILY 06/25/17 [History] Atorvastatin [Lipitor] 40 mg PO HS 06/25/17 [History] Cholecalciferol (D-3) [Vitamin D] 1,000 unit PO DAILY 06/25/17 [History] Ferrous Gluconate 324 mg PO BID 06/25/17 [History] Furosemide [Lasix] 40 mg PO DAILY 06/25/17 [History] Gabapentin [Neurontin] 300 mg PO 1200 06/25/17 [History] Gabapentin [Neurontin] 600 mg PO QAM AND QHS 06/25/17 [History] Levothyroxine [Synthroid] 112 mcg PO 0630 06/25/17 [History] Losartan Potassium [Cozaar] 50 mg PO DAILY 06/25/17 [History] Multivitamin [One Daily Multivitamin] 1 each PO DAILY 06/25/17 [History] Rivaroxaban [Xarelto] 15 mg PO HS 06/25/17 [History] Tramadol HCl [Ultram] 50 mg PO TID 06/25/17 [History] Magnesium Oxide [Magnesium] 500 mg PO DAILY 02/08/18 [History] 3 Allergy/AdvReac Type Severity Reaction Status Date / Time No Known Allergies Allergy Verified 04/24/17 09:45 All Systems PM: A 10-system review of systems was performed and is negative for pertinent findings except as documented above in the HPI. - Constitutional Constitutional: no chills, no fever(s), no lethargy - EENT Eyes: no change in vision, no decreased night vision, no irritation Nose, mouth and throat: no dental pain, no dysphagia, no mouth pain - Breasts Breasts: no change in shape - Cardiovascular Cardiovascular ROS IM: lightheadedness, no chest pain, no dyspnea, no dyspnea on exertion, no irregular heart rhythm, no palpitations, no syncope - Respiratory Respiratory: no hemoptysis, no wheezing, no snoring, no pain on inspiration - Gastrointestinal Gastrointestinal: no abdominal pain, no dyspepsia, no melena, no nausea, no vomiting - Genitourinary Genitourinary: no amenorrhea, no dysmenorrhea, no flank pain, no menorrhagia, no pelvic pain - Musculoskeletal Musculoskeletal ROS IM: limited range of motion (in the Right upper extremity.) , no arthralgias, no back pain, no muscle weakness, no numbness - Integumentary Integumentary IM: no new lesions, no pruritus - Psychiatric Psychiatric: no anxiety - Endocrine Endocrine IM: no cold intolerance, no fatigue - Constitutional Vitals: Temp Pulse Resp BP Pulse Ox 98.7 F 39 16 142/70 95 02/08/18 20:20 02/08/18 20:20 02/08/18 20:20 02/08/18 20:20 02/08/18 20:20 Exam: General: Alert and oriented 3. No acute distress. Cardiovascular: Irregularly irregular, Normal S1 & S2, no rubs, murmurs or gallops. No JVD. . Lungs: Clear to auscultation bilaterally, no wheezes or crackles. Abdomen:Soft, non-tender, no rigidity. Extremities: no edema or tenderness, decrease in range of motion in the right upper extremity Neurological:Normal cognition and motor skills. Rest of the physical exam is non contributory Internal Med - H&P Results - Labs CBC & Chem 7: 02/08/18 20:02 Labs: Short CBC 02/08/18 Range/Units 20:02 WBC 8.5 (4.3-11.1) K/mcL Hgb 10.2 L (11.5-15.4) g/dL Hct 32.1 L (35.3-44.9) % Plt Count 219 (140-400) K/mcL Neutrophils # 6.7 (1.6-8.9) K/mcL - Assessment and plan (1) AICD discharge Current Visit: Yes Status: Acute Assessment and plan: Plan Cardiology has been consulted. Plan as per cardiology: will check AICD tomorrow morning Serial troponin BMP 2-D echo On an amiodarone drip Continue telemetry monitoring Follow electrolyte (2) CHF (congestive heart failure) Current Visit: No Status: Acute Assessment and plan: Not on acute exacerbation. Plan Continue furosemide 40 mg daily and losartan 25 mg daily Strict intake and output Daily weight Water restriction to 1.7 L a day . Qualifiers: Heart failure type: unspecified Heart failure chronicity: chronic Qualified Code(s): I50.9 - Heart failure, unspecified (3) Atrial fibrillation Current Visit: No Status: Chronic Assessment and plan: Plan Continue amiodarone drip and Xarelto We will follow cardiology recommendations Qualifiers: Qualified Code(s): I48.2 - Chronic atrial fibrillation (4) CAD (coronary artery disease) Current Visit: No Status: Chronic Assessment and plan: Continue aspirin and statin Qualifiers: Coronary Disease-Associated Artery/Lesion type: [place] artery [place] vs. transplanted heart: [place] heart Associated angina: without angina Qualified Code(s): I25.10 - Atherosclerotic heart disease of [place] coronary artery without angina pectoris (5) DVT prophylaxis Current Visit: No Status: Acute Assessment and plan: Patient anticoagulated due to A. fib - Time Spent With Patient Total time spent is greater than 50% in coordination of care (as documented) at patient's floor/unit and/or counseling patient: Greater than 35 minutes
[2018-02-08 20:36] LABS: Phosphorous 3.3 mg/dL (2.7-4.5)
[2018-02-08 20:39] LABS: BUN/Creatinine Ratio 17 (6-26); Blood Urea Nitrogen 17 mg/dL (8-23); Calcium 9.8 mg/dL (8.6-10.3); Carbon Dioxide 32 mEq/L (23-29); Chloride 100 mEq/L (98-107); Glucose 126 mg/dL (70-105); Osmolality,Calculated 289 (280-300); Potassium 3.5 mEq/L (3.5-5.1); Sodium 138 mEq/L (136-145); eGFR For Non-African Americans 51 (> 60)
[2018-02-08 20:44] LABS: Troponin I 0.21 ng/mL (< 0.04)
[2018-02-08 20:50] LABS: INR 1.3; Prothrombin Time 14.9 Seconds (9.4-12.1)
[2018-02-08] MEDS: traMADol 50 MG TABLET PO PRN (22:51)
[2018-02-09] MEDS: traMADol 50 MG TABLET PO PRN ×3 (05:55→21:20)
[2018-02-09] MEDS: Aspirin 81 MG TAB.CHEW PO SCH (07:51)
[2018-02-09] MEDS: Furosemide 40 MG/4 ML VIAL IVP SCH (07:51)
[2018-02-09 08:16] LABS: BUN/Creatinine Ratio 18 (6-26); Blood Urea Nitrogen 17 mg/dL (8-23); Calcium 9.9 mg/dL (8.6-10.3); Carbon Dioxide 29 mEq/L (23-29); Chloride 100 mEq/L (98-107); Glucose 136 mg/dL (70-105); Magnesium 1.9 mg/dL (1.6-2.6); Osmolality,Calculated 290 (280-300); Potassium 3.3 mEq/L (3.5-5.1); Sodium 138 mEq/L (136-145); eGFR For Non-African Americans 56 (> 60)
[2018-02-09] MEDS: Amiodarone Premix 360 MG/200 ML BAG IVC SCH ×3 (08:41→21:19)
[2018-02-09] MEDS ORDERED: 0.9 % Sodium Chloride 1,000 ML ONE (09:07)
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
[2018-02-09] MEDS: Metoprolol XL (24 HR) Succ 25 MG TAB.ER.24H PO SCH (14:48)
[2018-02-09] MEDS ORDERED: *HR* Rivaroxaban 15 MG TABLET PO SCH (17:00)
--- NOTE | 2018-02-09 18:12 | Internal Med Progress Note ---
Hospitalist Progress Note - Encounter Date of Encounter: 02/09/18 Time of Encounter: 18:09 - Subjective Interval History: Patient seen and evaluated at bedside, patient reports doing well. But reports feeling some firing her device this morning. Denies chest pain, palpitation, shortness of breath. - Exam Vitals: Temp Pulse Resp BP Pulse Ox 98.8 F 60 18 141/62 95 02/09/18 16:42 02/09/18 18:00 02/09/18 16:42 02/09/18 18:00 02/09/18 16:42 Exam: General: Alert and oriented 3. No acute distress. Cardiovascular: Irregularly irregular, Normal S1 & S2, no rubs, murmurs or gallops. No JVD. . Lungs: Clear to auscultation bilaterally, no wheezes or crackles. Abdomen: Soft, non-tender, no rigidity. NABS in all 4 quadrants. Extremities: no edema or tenderness, decrease in range of motion in the right upper extremity Neurological:Normal cognition and motor skills. Rest of the physical exam is non contributory - Assessment and Plan (1) AICD discharge Current Visit: Yes Status: Acute Assessment and Plan: Patient had 2 firing episodes of her AICD today morning Plan Patient on an amiodarone drip as per cardiology recommendation. Continue monitoring electrolytes. And replace accordingly. We will continue to follow cardiology recommendations. (2) CHF (congestive heart failure) Current Visit: No Status: Acute Assessment and Plan: Not an acute exacerbation. Chest clear to auscultation. Plan Continue furosemide 40 mg IV daily On losartan 25 mg daily by mouth Started on metoprolol 25 mg daily We will continue to follow cardiology recommendations. Strict intake and output. Daily weight. (3) Atrial fibrillation Current Visit: No Status: Chronic Assessment and Plan: Cardiology is recommending against PO amidarone due to patient severe COPD. Plan Plan Patient is started on metoprolol 25 mg Continue oral anticoagulant (4) CAD (coronary artery disease) Current Visit: No Status: Chronic Assessment and Plan: Continue aspirin and statin (5) DVT prophylaxis Current Visit: No Status: Acute Assessment and Plan: Patient anticoagulated due to A. fib (6) Hypothyroidism Current Visit: Yes Status: Acute Assessment and Plan: Continue levothyroxine. A.m. TSH reflexive T4. - Summary of Assessment and Plan Summary of Assessment and Plan: Patient needs to remain in the hospital. Continue to be on an amiodarone drip. - Time Spent with Patient Total time spent is greater than 50% in coordination of care (as documented) at patient's floor/unit and/or counseling patient: 25 - 35 minutes Plan of Care Discussed with: patient Internal Medicine: Result - Labs CBC & Chem 7: 02/08/18 20:02 02/09/18 13:21 Labs: Short CBC 02/08/18 Range/Units 20:02 WBC 8.5 (4.3-11.1) K/mcL Hgb 10.2 L (11.5-15.4) g/dL Hct 32.1 L (35.3-44.9) % Plt Count 219 (140-400) K/mcL Neutrophils # 6.7 (1.6-8.9) K/mcL BMP 02/08/18 02/09/18 02/09/18 20:02 07:36 13:21 Sodium 138 138 Potassium 3.5 3.3 L 3.7 Chloride 100 100 Carbon Dioxide 32 H 29 BUN 17 17 Creatinine 1.02 0.94 Glucose 126 H 136 H Calcium 9.8 9.9 Cardiac Enzymes 02/08/18 02/09/18 02/09/18 Range/Units 20:02 01:46 07:36 Troponin I 0.21 H* 0.14 H* 0.13 H* (< 0.04) ng/mL - ABG Interpretation ABG results: PT/INR, D-dimer PT 14.9 Seconds (9.4-12.1) H 02/08/18 20:02 - Impressions Impressions Chest X-Ray 02/08/18 19:06 IMPRESSION: No acute cardiopulmonary disease. D/ / Viktor Muniz MD / Viktor Muniz MD Interpreting Provider: Viktor Muniz MD Humerus X-Ray 02/08/18 20:21 IMPRESSION: No acute bony abnormality identified. D/ / Vicente Craft MD / Vicente Craft MD Interpreting Provider: Vicente Craft MD Consult Discharge Plan - Plan Referrals: Tye Arellano MD [Primary Care Provider] - 02/16/18 2:30 am (2) CHF (congestive heart failure) Qualifiers: Heart failure type: systolic Heart failure chronicity: chronic Qualified Code(s): I50.22 - Chronic systolic (congestive) heart failure (3) Atrial fibrillation Qualifiers: Qualified Code(s): I48.2 - Chronic atrial fibrillation (4) CAD (coronary artery disease) Qualifiers: Coronary Disease-Associated Artery/Lesion type: [place] artery [place] vs. transplanted heart: [place] heart Associated angina: without angina Qualified Code(s): I25.10 - Atherosclerotic heart disease of [place] coronary artery without angina pectoris (6) Hypothyroidism Qualifiers: Hypothyroidism type: unspecified Qualified Code(s): E03.9 - Hypothyroidism, unspecified
[2018-02-10] MEDS: Amiodarone Premix 360 MG/200 ML BAG IVC SCH ×5 (00:39→23:34)
[2018-02-10 04:34] LABS: Basophils % 0.4 %; Eosinophils # 0.2 K/mcL (0.0-0.6); Eosinophils % 3.5 %; Hematocrit 31.2 % (35.3-44.9); Immature Granulocytes % 0.3 % (0-4); Lymphocytes # 1.1 K/mcL (0.6-4.6); Lymphocytes % 16.2 %; Mean Corpuscular HGB Conc 32.1 g/dL (31.6-35.5); Mean Corpuscular Hemoglobin 29.1 pg (28.0-33.3); Mean Corpuscular Volume 90.7 fL (83.0-100.0); Mean Platelet Volume 12.3 fL (9.4-12.4); Monocytes # 0.7 K/mcL (0.0-1.3); Monocytes % 9.7 %; Neutrophils # 4.8 K/mcL (1.6-8.9); Platelet Count 181 K/mcL (140-400); Red Blood Count 3.44 M/mcL (3.82-4.97); Red Cell Distribution Width 16.6 % (11.5-14.5); Segmented Neutrophils % 69.9 %
[2018-02-10 04:59] LABS: BUN/Creatinine Ratio 18 (6-26); Blood Urea Nitrogen 14 mg/dL (8-23); Calcium 9.2 mg/dL (8.6-10.3); Carbon Dioxide 30 mEq/L (23-29); Chloride 104 mEq/L (98-107); Glucose 115 mg/dL (70-105); Magnesium 1.9 mg/dL (1.6-2.6); Osmolality,Calculated 289 (280-300); Potassium 3.5 mEq/L (3.5-5.1); Sodium 139 mEq/L (136-145); eGFR For Non-African Americans > 60 (> 60)
[2018-02-10 05:12] LABS: Thyroid Stimulating Hormone 0.488 mcIU/mL (0.340-5.600)
[2018-02-10] MEDS: traMADol 50 MG TABLET PO PRN (05:37)
[2018-02-10] MEDS: Metoprolol XL (24 HR) Succ 25 MG TAB.ER.24H PO SCH (08:42)
[2018-02-10] MEDS: Aspirin 81 MG TAB.CHEW PO SCH (08:42)
[2018-02-10] MEDS: Furosemide 40 MG/4 ML VIAL IVP SCH (08:43)
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
[2018-02-10] MEDS: *HR* Amiodarone 200 MG TABLET PO SCH ×2 (14:16→20:53)
--- NOTE | 2018-02-10 15:54 | Internal Med Progress Note ---
Hospitalist Progress Note - Encounter Date of Encounter: 02/10/18 Time of Encounter: 15:52 - Subjective Interval History: Patient evaluated at bedside, denies shortness of breath. No chest pain, or abdominal pain. Denies nausea and vomiting. - Exam Vitals: Temp Pulse Resp BP Pulse Ox 98.5 F 60 18 131/82 98 02/10/18 11:18 02/10/18 13:00 02/10/18 11:18 02/10/18 13:00 02/10/18 11:18 Exam: General: Alert and oriented 3. No acute distress. Cardiovascular: Irregularly irregular, Normal S1 & S2, no rubs, murmurs or gallops. Lungs: Clear to auscultation bilaterally, no wheezes or crackles. Abdomen: Soft, non-tender, no rigidity. NABS in all 4 quadrants. Extremities: no edema or tenderness, decrease in range of motion in the right upper extremity Neurological:CN II-XII intact. Rest of the physical exam is non contributory - Assessment and Plan (1) AICD discharge Current Visit: Yes Status: Acute Assessment and Plan: No AICD firing recorded over the last 24-48 hours. Plan Supervisor Grading recommended increasing amiodarone to 400 mg twice a day, and to continue amiodarone drip. [facility] will continue to follow cardiology recommendation. (2) CHF (congestive heart failure) Current Visit: No Status: Acute Assessment and Plan: Not an acute exacerbation. Plan Continue water restriction to 1.5 L a day Continue gentle diuresis with furosemide 40 mg IV daily. On a beta veda and losartan. (3) Atrial fibrillation Current Visit: No Status: Chronic Assessment and Plan: Rate controlled. Plan Amiodarone increased to 400 mg by mouth twice a day as per manager utilization management recommendation. Continue metoprolol 25 mg daily by mouth. On rivaroxaban (4) CAD (coronary artery disease) Current Visit: No Status: Chronic Assessment and Plan: Continue aspirin and statin (5) DVT prophylaxis Current Visit: No Status: Acute Assessment and Plan: Patient anticoagulated due to A. fib (6) Hypothyroidism Current Visit: Yes Status: Acute Assessment and Plan: Continue levothyroxine. - Summary of Assessment and Plan Summary of Assessment and Plan: Patient on a amiodarone drip. Scheduled for a [facility]. - Time Spent with Patient Total time spent is greater than 50% in coordination of care (as documented) at patient's floor/unit and/or counseling patient: Greater than 35 minutes Plan of Care Discussed with: patient (the nurse.) Internal Medicine: Result - Labs CBC & Chem 7: 02/10/18 04:12 02/10/18 04:12 Labs: Short CBC 02/10/18 Range/Units 04:12 WBC 6.8 (4.3-11.1) K/mcL Hgb 10.0 L (11.5-15.4) g/dL Hct 31.2 L (35.3-44.9) % Plt Count 181 (140-400) K/mcL Neutrophils # 4.8 (1.6-8.9) K/mcL BMP 02/10/18 04:12 Sodium 139 Potassium 3.5 Chloride 104 Carbon Dioxide 30 H BUN 14 Creatinine 0.80 Glucose 115 H Calcium 9.2 - ABG Interpretation ABG results: PT/INR, D-dimer PT 14.9 Seconds (9.4-12.1) H 02/08/18 20:02 - Impressions Impressions Echocardiogram 02/09/18 12:07 Impressions: LVEF 30%. Severe global left ventricular systolic dysfunction. Mildly dilated left ventricle. Normal right ventricular structure and function. Moderately dilated left atrium. Mild aortic stenosis. Moderate mitral regurgitation. Mild tricuspid regurgitation. Mild pulmonary hypertension. No evidence of PFO with agitated saline contrast. Left Ventricular Wall Motion: Rest Echo Findings The apex, apical inferior, mid inferior, basal inferior, apical anterior, mid anterior, basal anterior, apical septal, mid inferior septal, basal inferior septal, apical lateral, mid anterior lateral, basal anterior lateral, mid anterior septal, mid inferior lateral, basal anterior septal and basal inferior lateral spencer were hypokinetic. Findings: Study Quality * Technically adequate exam. ECG Findings * Paced rhythm. Left Ventricle * LVEF 25-30%. * Mildly dilated left ventricle. * Severe global left ventricular systolic dysfunction. * Moderate left ventricular diastolic dysfunction. * Definity echo contrast was not used. Right Ventricle * Normal right ventricular structure and function. Left Atrium * Moderately dilated left atrium. Right Atrium * Normal right atrial size. Interatrial Septum * No evidence of PFO with agitated saline contrast. Aortic Valve * Severely calcified aortic valve leaflets. * Mild aortic stenosis. * V1 130 V2 237 PG 22 MG 11, LVOT 2, AVRA 1.7 Mitral Valve * Mild mitral annular calcification * Moderate mitral regurgitation. Tricuspid Valve * Normal tricuspid valve structure. * Mild tricuspid regurgitation. * Estimated RVSP is RV-RA gradient 33 mmHg. * Mild pulmonary hypertension. Pulmonic Valve * Normal pulmonic valve structure and function. Aorta * Normally sized aortic root. Pericardium * The pericardium appears normal. IVC * The IVC is not well evaluated. Device lead * A device lead was visualized in the right atrium and right ventricle. Consult Discharge Plan - Plan Referrals: Tye Arellano MD [Primary Care Provider] - 02/16/18 2:30 am (2) CHF (congestive heart failure) Qualifiers: Heart failure type: systolic Heart failure chronicity: chronic Qualified Code(s): I50.22 - Chronic systolic (congestive) heart failure (3) Atrial fibrillation Qualifiers: Atrial fibrillation type: paroxysmal Qualified Code(s): I48.0 - Paroxysmal atrial fibrillation (4) CAD (coronary artery disease) Qualifiers: Coronary Disease-Associated Artery/Lesion type: [place] artery [place] vs. transplanted heart: [place] heart Associated angina: without angina Qualified Code(s): I25.10 - Atherosclerotic heart disease of [place] coronary artery without angina pectoris (6) Hypothyroidism Qualifiers: Hypothyroidism type: unspecified Qualified Code(s): E03.9 - Hypothyroidism, unspecified
[2018-02-10] MEDS ORDERED: Menthol 9.1 MG LOZENGE PO PRN (21:56)
[2018-02-11 04:16] LABS: Magnesium 1.9 mg/dL (1.6-2.6); Potassium 4.2 mEq/L (3.5-5.1)
[2018-02-11] MEDS: Amiodarone Premix 360 MG/200 ML BAG IVC SCH (06:02)
[2018-02-11] MEDS: *HR* Amiodarone 200 MG TABLET PO SCH (07:54)
[2018-02-11] MEDS: Furosemide 40 MG/4 ML VIAL IVP SCH (07:55)
[2018-02-11] MEDS: Metoprolol XL (24 HR) Succ 25 MG TAB.ER.24H PO SCH (07:55)
[2018-02-11] MEDS: Aspirin 81 MG TAB.CHEW PO SCH (07:55)
[2018-02-11] MEDS ORDERED: Heparin 1,000 UNITS/500 mL 500 ML ONE (08:16)
[2018-02-11] MEDS ORDERED: *HR* Heparin 10,000 UNIT/10 ML VIAL ONE (08:16)
[2018-02-11] MEDS ORDERED: 0.9 % Sodium Chloride 2,000 ML ONE (08:16)
[2018-02-11] MEDS ORDERED: ISOVUE-370 200 ML INFUS..BTL IV ONE (08:16)
[2018-02-11] MEDS ORDERED: Nitroglycerin 1,000 MCG/10 ML VIAL IV ONE (08:17)
[2018-02-11] MEDS ORDERED: 0.9 % Sodium Chloride 1,000 ML ONE (08:43)
--- NOTE | 2018-02-11 09:50 | Pre-Sedation Evaluation ---
Pre-sedation evaluation - Pre-sedation checklist Date of procedure: 02/11/18 Procedure: [facility] Recent Vitals: Last Vital Signs Temp 99.2 F 02/11/18 07:24 Pulse 60 02/11/18 07:24 Resp 14 02/11/18 07:24 BP 141/72 02/11/18 07:24 Pulse Ox 94 02/11/18 07:24 H&P (including ROS) documented in medical record: Yes Previous reaction to sedatives/anesthetics: No Dietary Status: NPO after Midnight Dentition: No loose teeth or bridges Cardiac Registry (Cardio Only) - Functional Capacity Functional Capacity: < 4 METS - Clincal Frailty Scale Clinical Frailty Scale: Vulnerable
[2018-02-11] MEDS ORDERED: *HR* Midazolam HCl 2 MG/2 ML VIAL ONE (10:00)
[2018-02-11] MEDS ORDERED: *HR* FentaNYL (PF) 100 MCG/2 ML VIAL ONE (10:00)
--- NOTE | 2018-02-11 10:05 | Pre-Sedation Evaluation ---
Pre-sedation evaluation - Pre-sedation checklist Date of procedure: 02/11/18 Procedure: C Recent Vitals: Last Vital Signs Temp 99.2 F 02/11/18 07:24 Pulse 60 02/11/18 07:24 Resp 14 02/11/18 07:24 BP 141/72 02/11/18 07:24 Pulse Ox 94 02/11/18 07:24 H&P (including ROS) documented in medical record: Yes Previous reaction to sedatives/anesthetics: No Dietary Status: NPO after Midnight Dentition: No loose teeth or bridges ASA Classification *see protocol: CLASS II-Mild systemic disease Cardiac Registry (Cardio Only) - Functional Capacity Functional Capacity: < 4 METS - Clincal Frailty Scale Clinical Frailty Scale: Vulnerable
--- NOTE | 2018-02-11 11:06 | Invasive Diagnostic Lab Proc ---
Name: Becka Jay Date of Study: 02/11/2018 Date: 1930 Ht: 65.0in Medical Record#: [id number] Age: 87 Wt: 147.05lb Gender: Female BSA: 1.73 Order #: [id number] BMI: 24.5 Physicians Procedure Physician: Juan Manuel Augustin MD Referring MD: Referring MD: Staff Name Position Time In Tyrell, Pedro RN Monitor 09:40 AM Lizz Camacho RN Covering And Lining Supervisor 09:40 AM Ted Cardoza RT (R) Scrub 09:40 AM Indications Indication Non-Stemi VT Procedures Performed Procedure CORONARY ARTERY ANGIO S&I Pre-Procedure Checklist Informed consent is complete signed and on chart. H&P is on chart. ID band is on and ID verified with patient. Patient NPO for procedure The procedure was described for the patient and questions were answered. Blood Pressure: 141/72 ECG is on chart. Rhythm: Paced Plan of Care Patient will tolerate the procedure without complications. Adequate level of comfort will be maintained. Hemodynamics will remain stable Patient will recover from procedure without complications. Respiratory function will be maintained. Cardiac rhythm will remain stable. Patient temperature will be maintained. Patient and/or family have verbalized understanding of the procedure. Patient Education Chief Complaint/Reason for Test: Cardiac Cath Developmental Category: Geriatric (65+ years) Developmentally Appropriate for Age: Yes Learning Barriers: None Education Needs: Procedure Education Method: Verbal Information Taught: Cardiac Cath Educational Evaluation: Able to repeat information Intravenous Access Time IV Size Location DC'd Fluid/Drip Rate Units RN 20g 1 1/4" Patent On Arrival Rt Wrist Amiodarone 33.3 ml/hr Lizz Camacho RN 20g 1 1/4" Patent On Arrival Rt Antecubital 0.9NaCl Lizz Camacho RN Allergies No Known Allergies Vital Signs Time BP (mmHg) HR (bpm) O2 Sat. RR (bpm) LOC 09:58 AM 134 / 68 59 99 % 18 10:03 AM 135 / 76 59 99 % 16 10:08 AM 134 / 64 60 98 % 19 10:13 AM 132 / 73 59 98 % 20 10:18 AM 130 / 71 59 98 % 19 10:23 AM 138 / 74 59 98 % 20 10:28 AM 128 / 72 60 98 % 27 Procedural Medications Time Medication Dose Units Method Given By 10:11 AM Lidocaine 2% 10 ml Subcutaneous Juan Manuel Augustin MD 09:43 AM Oxygen 2 L/min nasal cannula Lizz Camacho RN 09:50 AM Versed 0.5 mg Intravenous Lizz Camacho RN 09:50 AM Fentanyl 25 mcg Intravenous Lizz Camacho RN 09:35 AM Amiodarone 33.3 ml/hr Intravenous ASA Classification: CLASS II- Mild systemic disease (i.e. well-controlled diabetes, hypertension, asthma, cigarette smoking) Velvet Score Preprocedure Postprocedure Activity 2- Moves 4 extremities sustained head lift Activity 2- Moves 4 extremities sustained head lift Circulation 2- SBP +/= 20 points of pre-anesthetic level Circulation 2- SBP +/= 20 points of pre-anesthetic level Consciousness 2- Awake and alert oriented x 3 Consciousness 2- Awake and alert oriented x 3 O2 Saturation 2- Able to maintain O2 satruation of 92% on room air O2 Saturation 2- Able to maintain O2 satruation of 92% on room air Respiratory 2- Able to deep breathe and cough well Respiratory 2- Able to deep breathe and cough well Total Score 10 Total Score 10 Contrast Agent: Isovue Diagnostic Contrast: 72 ml Total Contrast: 72 ml Fluoro Dose: 5604 mGy Procedure Log Time Note Enter By 09:35 AM Patient arrived at 09:35 with Amiodarone Intravenous drip @ 33.3 ml/hr jcallan 09:35 AM 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 2 at 09:35 jcallan 09:40 AM Ted Cardoza RT (R) Position: Scrub Time in: 09:40 [facility] 09:40 AM Pedro Santillan RN Position: Monitor [facility]: 09:40 [facility] AM Lizz Camacho RN Position: Covering And Lining Supervisor [facility]: 09:40 [facility] AM Patient charges- Angio tray pack, Navilyst 3mm J, Pulse Oximetry and ACIST tubing and transducer jc 09:40 AM CathStat 09:41 AM Physician arrived 09:41 jcan 09:41 AM José Manuel and greet completed [facility] 09:41 AM Sign in performed according to hospital policy. [facility] 09:42 AM Procedure start 09:42 allan 09:43 AM Time: :43 Oxygen on at 2 L/min per nasal cannula by Lizz Camacho RN [facility] AM Hair removed from procedure site in procedure lab using clippers. Bilateral groin prepped with Chloraprep by Ted Cardoza (Yan), then patient was draped. Skin intact. [facility] 09:50 AM Time: 09:50 Versed 0.5 mg Intravenous Given by Lizz Camacho RN [facility] 09:[facility] AM Time: 09:50 Fentanyl 25 mcg Intravenous Given by Lizz Camacho RN [facility] 09:58 AM Vitals capture started with the following parameters, Patient=Adult, Interval=5 min, Initial Lrptifve=257 mmHg, Deflation Rate=5 mmHg, Cuff placed on Right Arm 09:58 AM HR=59 bpm, QECR=827/68 mmhg, SpO2=99.0 %, Resp=18 B/min, Comment=paced 09:58 AM Pressure channel 1 zeroed. 10:03 AM HR=59 bpm, QMOV=016/76 mmhg, SpO2=99.0 %, Resp=16 B/min 10:08 AM HR=60 bpm, UMLM=986/64 mmhg, SpO2=98.0 %, Resp=19 B/min 10:11 AM Time out performed according to hospital policy [facility] 10:11 AM Time: 10:11 10 ml Lidocaine 2% to right groin Subcutaneous Given by Juan Manuel Augustin MD [facility] 10:12 AM Micro-Introducer Kit utilized for sheath placement [facility] 10:12 AM right groin hand injected with contrast for placement check under fluro. [facility] 10:13 AM Access obtained by percutaneous puncture. 6Fr 10cm Terumo [place] sheath placed in right Femoral artery. [id number] [facility] 10[facility]13 AM 5Fr FR 4 catheter inserted over the wire [facility] 10:13 AM HR=59 bpm, MIIX=632/73 mmhg, SpO2=98.0 %, Resp=20 B/min, Comment=paced 10:14 AM ASA Class CLASS II- Mild systemic disease (i.e. well-controlled diabetes, hypertension, asthma, cigarette smoking) [facility] 10:14 AM Recorded Pressure: Ao, HR=60, Condition=Condition 1 (Aorta) Ao 127/74/97 10:14 AM RCA angiography performed in multiple views. [email or web address] 10:14 AM Coronary Dominance: right jcallihan 10:15 AM Catheter removed jcallihan 10:15 AM 5Fr FL 4 catheter inserted over the wire [facility] jcallihan 10:17 AM LCA angiography performed in multiple views. jcallihan 10:18 AM HR=59 bpm, MUUA=962/71 mmhg, SpO2=98.0 %, Resp=19 B/min, Comment=paced 10:21 AM wire removed jcallihan 10:21 AM Catheter removed jcallihan 10:21 AM Procedure completed at 10:21 02/11/2018 [email or web address] 10:[address] Surgeon called for consult jcallihan 10:22 AM What is the NYHA Class? Class 3 [email or web address] 10:22 AM Did you address YOEL flow and Dominance? Yes [email or web address] 10:23 AM HR=59 bpm, SUTW=377/74 mmhg, SpO2=98.0 %, Resp=20 B/min, Comment=paced 10:23 AM Sign out completed: Radiation Dose 546 mGy, 5604 cGy/cm2 Fluoro Time: 1.9 Isovue 370 - 200ml contrast 72 ml given by Juan Manuel Augustin MD. Complications: NoneCardiac Rehab Consult needed: YesConfirmed administered medications: Yes [email or web address] 10:24 AM Arterial sheath pulled, Mynx closure device used and was Successful [id number] S/N. jcallihan 10:24 AM Estimated Blood Loss: minimal jcallihan 10:25 AM Post ECG Paced jcallihan 10:25 AM Post Blood Pressure 138/74 jcallihan 10:26 AM 10:25 Post Pulses Bilateral DP & PT 1+ [email or web address] 10:26 AM Information taught Cardiac Cath and Mynx jcallihan 10:26 AM Education needs Procedure, Plan of Care, and Responsibilities of Patient in Care jcallihan 10:26 AM Learning barriers :None jcallihan 10:26 AM Education Methods Verbal jcallihan 10:26 AM Education evaluation Able to repeat information jcallihan 10:27 AM Plavix, Effient or Brilinta given No jcallihan 10:27 AM Family placed in consult room. [email or web address] 10:27 AM Complications: None [email or web address] 10:28 AM HR=60 bpm, MXRB=537/72 mmhg, SpO2=98.0 %, Resp=27 B/min, Comment=paced 10:29 AM Site status Hematoma - Rt Groin as reported by Ted Cardoza RT (R) at 10:29 <3 cm jcallihan 10:30 AM holding extra pressure to resolve. jcallihan 10:31 AM site soft, will continue to monitor and report to primary RN [email or web address] 10:31 AM Report given to Clyde WALTER Pt taken to Room #15. 10:31 jcallihan 10:31 AM Opsite applied jcallihan 10:40 AM Patient out of room: 10:40 jcallihan 10:44 AM Lesion found in Distal LMCA. Pre Stenosis: 65 Pre YOEL Flow: [email or web address] 10:44 AM Lesion found in Mid LAD. Pre Stenosis: 95 Pre YOEL Flow: jcallihan 10:45 AM Lesion found in Proximal Circumflex. Pre Stenosis: 50 Pre YOEL Flow: jcallihan 10:45 AM Lesion found in Right PDA. Pre Stenosis: 50 Pre YOEL Flow: jcallihan 10:45 AM Left Main Coronary Artery with 65% stenosis jcallihan 10:45 AM Mid/Distal Left Anterior Descending Coronary Artery and diagonal branches with 95% stenosis. If graft is supplying this area, 0 % stenosis jcallihan 10:45 AM Circumflex, Obtuse Marginal, Left Posterior Descending, and Left Posterolateral Coronary Arteries with 50 % stenosis. If graft is supplying this area, 0 % stenosis jcallihan 10:45 AM Right Coronary, Right Posterior Descending Arteries with Right Posterolateral and Acute Marginal branches with 50 % stenosis. If graft is supplying this area, 0 % stenosis jcallihan Complications Complication None None Hemodynamics Pressures Site Systolic/A Wave Diastolic/V Wave Mean AO 127 74 97 Post Procedure Information Blood Pressure: 138/74 mmHg Rhythm: Paced Post procedural instructions were given Surgery consult for CABG Closure Device Time Device Success/Fail 02/11/2018 10:35:00 AM MynxGrip Successful Site Checks Time Location Status Staff Sheath In? Note 10:26 AM Rt Groin No bleeding/hematoma Ted Cardoza RT (R) 10:29 AM Rt Groin Hematoma Ted Cardoza RT (R) <3 cm Pulses Time Site Pre-Procedure Post-Procedure Note Bilateral DP & PT 1+ Bilateral radial 2+ 10:25:00 AM Bilateral DP & PT 1+ Updated by Pedro Santillan RN on 02/11/2018 11:00:31 AM electronically signed on 02/11/2018 11:01:29 AM with status of Final
--- NOTE | 2018-02-11 13:22 | Event Note ---
Date of Encounter: 02/11/18 Time of Encounter: 13:16 - Cardiology Event Note Ms. Jay underwent LHC today and was found to have severe left main disease and severe ISR in the mLAD. There was right to left collaterals seen. CT surgery consulted. Dr. Mejia notified. I discussed POC with Dr. Sanchez. Telemetry review shows no recurrent VT for last 48 hours. We will d/c amiodarone gtt. Continue amiodarone 400 mg BID until discharge and then place on amiodarone 400 mg daily. Continue toprol xl. Recommend continuing potassium supplement 10 meq daily out-pt.
--- NOTE | 2018-02-11 14:12 | Discharge Summary ---
Orders not resulted at time of discharge: Pending orders 02/10/18 13:27 CL Cardiac Catheterization [CL] Routine Date of Encounter: 02/11/18 Time of Encounter: 14:09 - Discharge Diagnosis (1) AICD discharge Priority: Primary Status: Acute (2) CHF (congestive heart failure) Priority: Secondary Status: Chronic Assessment and Plan: E.F 30% Qualifiers: Heart failure type: systolic Heart failure chronicity: chronic Qualified Code(s): I50.22 - Chronic systolic (congestive) heart failure (3) Atrial fibrillation Priority: Secondary Status: Chronic Qualifiers: Atrial fibrillation type: paroxysmal Qualified Code(s): I48.0 - Paroxysmal atrial fibrillation (4) CAD (coronary artery disease) Priority: Secondary Status: Chronic Assessment and Plan: Severe LAD disease. Qualifiers: Coronary Disease-Associated Artery/Lesion type: [place] artery [place] vs. transplanted heart: [place] heart Associated angina: without angina Qualified Code(s): I25.10 - Atherosclerotic heart disease of [place] coronary artery without angina pectoris (5) DVT prophylaxis Priority: Secondary Status: Chronic (6) Hypothyroidism Priority: Secondary Status: Chronic Qualifiers: Hypothyroidism type: unspecified Qualified Code(s): E03.9 - Hypothyroidism , unspecified Hospital course: Ms. Jay is a 87 year old female arthritis, atrial fibrillation, cardiomyopathy , CAD S/P ptca/bare metal stent placementin the mid LAD in 06/2015, CHF e.f 30%, COPD, coronary artery disease, diabetes, hyperlipidemia, hypertension, myocardial infarction, thyroid disease. Patient was transferred to this hospital from [facility] after her AICD firing 3 times with one episode identified as V. tach. Patient placed on an amiodarone drip, AICD investigated by cardiology is reported as ICD checked and shock total 5 ICD shocks with ATP in the past three months. # shocks in last two days. One episode she describes was ATP. Battery in good working order. Patient underwent cardiac catheterization: Impressions: There is severe one vessel coronary artery disease. There is severe distal Left main disease Recommendations by cardiology: Optimal medical therapy of patient's disease. Aggressive risk factor modification. Suggest patient have Elective coronary artery bypass surgery. Vs high risk PCI. Thoracic surgeon evaluated the patient recommended PCI. Due to high risk of PCI procedure, cardiology recommended the patient to be transferred to a higher level of care to undergo PCI. Patient will be transferred to [place]. - Time Spent with Patient Total time spent providing and/or coordinating discharge services: Greater than 30 minutes - Discharge Medications Home Medications: Albuterol Sulfate [Ventolin Hfa] 2 puff IH Q4H PRN 06/25/17 [History] Allopurinol [Zyloprim] 300 mg PO DAILY 06/25/17 [History] Aspirin [Lo-Dose Aspirin EC] 81 mg PO DAILY 06/25/17 [History] Atorvastatin [Lipitor] 40 mg PO HS 06/25/17 [History] Cholecalciferol (D-3) [Vitamin D] 1,000 unit PO DAILY 06/25/17 [History] Ferrous Gluconate 324 mg PO BID 06/25/17 [History] Furosemide [Lasix] 40 mg PO DAILY 06/25/17 [History] Gabapentin [Neurontin] 300 mg PO 1200 06/25/17 [History] Gabapentin [Neurontin] 600 mg PO QAM AND QHS 06/25/17 [History] Losartan Potassium [Cozaar] 50 mg PO BID 06/25/17 [History] Multivitamin [One Daily Multivitamin] 1 each PO DAILY 06/25/17 [History] Rivaroxaban [Xarelto] 15 mg PO 1700 06/25/17 [History] Tramadol HCl [Ultram] 50 mg PO TID 06/25/17 [History] Magnesium Oxide [Magnesium] 500 mg PO DAILY 02/08/18 [History] Albuterol Neb [Proventil Neb] 2.5 mg IH TID PRN 02/09/18 [History] Budesonide/Formoterol 160/4.5 [Symbicort 160/4.5] 2 puff IH BIDR 02/09/18 [ History] Glucosamn/Condroitn/C/Mn/[place] [[facility] Glucosamine Chondroit Cplt] 1 tab PO 1200 [History] Levothyroxine Sodium [Levoxyl] 100 mcg PO DAILY 02/09/18 [History] Tiotropium [place] [Spiriva Respimat] 2 puff IH BID 02/09/18 [History] Amiodarone [Cordarone] 400 mg PO BID tablet 02/11/18 [Rx] Metoprolol XL (24 HR) Succ [Toprol Xl] 25 mg PO DAILY tab.er.24h 02/11/18 [Rx] Potassium Chloride 10 meq PO DAILY tab.er.prt 02/11/18 [Rx] Allergies/Adverse Reactions: 3 Allergy/AdvReac Type Severity Reaction Status Date / Time No Known Allergies Allergy Verified 04/24/17 09:45 Date of admission: 02/08/18 16:18 Primary care physician: Tye Arellano MD Consults: 02/09/18 18:10 Consult to Orthopedic Surgery [CONS] Routine Consulting Provider: [facility] Reason for Consult: pain and decreased range of motion in the right upper extr. Right humeral fracture. Call Completed: No 02/10/18 11:40 Consult to Electrophysiology (EP) [CONS] Routine Consulting Provider: Electrophysiology [place] Reason for Consult: VT Call Completed: Yes 02/11/18 09:00 Consult to Nurse Navigator [CONS] Routine Comment: 02/11/18 12:43 Consult to Cardiothoracic Surgery [CONS] Routine Consulting Provider: [facility] [place] Reason for Consult: Severe left main disease Call Completed: Yes - Constitutional Vitals: Temp Pulse Resp BP Pulse Ox 98.8 F 60 18 136/67 98 02/11/18 12:03 02/11/18 12:31 02/11/18 12:03 02/11/18 12:31 02/11/18 12:03 Exam: General: Alert and oriented 3. No acute distress. Cardiovascular: Irregularly irregular, Normal S1 & S2, no rubs, murmurs or gallops. Lungs: Clear to auscultation bilaterally, no wheezes or crackles. Abdomen: Soft, non-tender, no rigidity. NABS in all 4 quadrants. Extremities: no edema or tenderness, decrease in range of motion in the right upper extremity Neurological:CN II-XII intact. Rest of the physical exam is non contributory - Patient Status Disposition: Transfer Critical Access Hosp Condition: Good Functional capacity at discharge: independent ambulation Overall status at discharge: patient is back to baseline - Discharge Instructions Follow Up With: Tye Arellano MD [Primary Care Provider] - 02/16/18 2:30 am - Diet and Activity Activity: as per physical therapy Diet: advance to your usual diet
--- NOTE | 2018-02-11 15:11 | Cardiothoracic Consult Note ---
Date of Encounter: 02/11/18 Time of Encounter: 15:07 Assessment and Plan (1) CAD (coronary artery disease) Current Visit: No Status: Chronic The assessment and plan as outlined above was discussed with the patient and/or family members who expressed understanding and agreement. All questions were answered. I feel that the patient is a poor candidate for coronary artery bypass grafting. She is 87 years old and has extremely poor ventricular function. She sustained 3 episodes of V. tach while on by mouth amiodarone. I favor high risk PTCA and stenting versus medical therapy. The patient and her family also or against surgery. They will consider their options and let us know. Qualifiers: Coronary Disease-Associated Artery/Lesion type: [place] artery [place] vs. transplanted heart: [place] heart Associated angina: without angina Qualified Code(s): I25.10 - Atherosclerotic heart disease of [place] coronary artery without angina pectoris - History of Present Illness History of present illness: Ms. Jay is a 87 year old female The patient is an 87-year-old female who has a AICD device in place. She presented with 3 episodes of V. tach and loss of consciousness. No history of chest pain in the past several months. She does have a history of a previous myocardial infarction. She is status post DDD pacemaker and stents and is in atrial fibrillation. Echocardiogram revealed an ejection fraction of 30% with mild aortic valve stenosis and moderate mitral regurgitation. Cardiac catheterization revealed a 65% left main lesion. She also has a 90% to 95% in- stent stenosis of her LAD. The distal LAD is small and diffusely diseased. However, it does feed via right to left collaterals. Past medical history is notable for hypertension, hyperlipidemia, congestive heart failure, arthritis and COPD. No history of diabetes. She underwent cardiac stents in 2016. She has been on chronic anticoagulation for her A. fib. Social history. She lives with her daughter and uses a walker. She used to smoke, but quit 35 years ago. Does not drink alcohol. She is on 2 L of oxygen by nasal prong continuously. Past Med Surg Social Fam HX - Past Medical History Medical history: arthritis, atrial fibrillation, cardiomyopathy, CHF, COPD, coronary artery disease, diabetes, hyperlipidemia, hypertension, myocardial infarction, thyroid disease, other Additional medical history: chronic bronchitis Psychiatric history: no psych history - Past Surgical History Surgical History: angioplasty/stent, appendectomy, cataract, cholecystectomy, hysterectomy, orthopedic, other, pacemaker/AICD, other Additional surgical history: LEFT SHOULDER REPLACEMENT - Social History Smoking Status: Former smoker Smokeless Tobacco Status: No Alcohol use: none Drug use: none - Family History Grandmother Family Member Ethnicity: Non- Living Status: Brother Family Member Ethnicity: Non- Living Status: Hx Family Respiratory Disorders: Yes (Emphysema) Mother Family Member Ethnicity: Non- Living Status: Hx Family Cardiac Disorders: Yes (HTN, CVA) Hx Family Neurologic Disorders: Yes (Status post CVA) Father Family Member Ethnicity: Non- Living Status: Hx Family Cardiac Disorders: Yes (HTN) Sister Family Member Ethnicity: Non- Living Status: Hx Family Cancer: Yes (Cervical) Hx Family Neuromuscular Disorders: Yes (History of Parkinson's disease) Medications and Allergies Albuterol Sulfate [Ventolin Hfa] 2 puff IH Q4H PRN 06/25/17 [History] Allopurinol [Zyloprim] 300 mg PO DAILY 06/25/17 [History] Aspirin [Lo-Dose Aspirin EC] 81 mg PO DAILY 06/25/17 [History] Atorvastatin [Lipitor] 40 mg PO HS 06/25/17 [History] Cholecalciferol (D-3) [Vitamin D] 1,000 unit PO DAILY 06/25/17 [History] Ferrous Gluconate 324 mg PO BID 06/25/17 [History] Furosemide [Lasix] 40 mg PO DAILY 06/25/17 [History] Gabapentin [Neurontin] 300 mg PO 1200 06/25/17 [History] Gabapentin [Neurontin] 600 mg PO QAM AND QHS 06/25/17 [History] Losartan Potassium [Cozaar] 50 mg PO BID 06/25/17 [History] Multivitamin [One Daily Multivitamin] 1 each PO DAILY 06/25/17 [History] Rivaroxaban [Xarelto] 15 mg PO 1700 06/25/17 [History] Tramadol HCl [Ultram] 50 mg PO TID 06/25/17 [History] Magnesium Oxide [Magnesium] 500 mg PO DAILY 02/08/18 [History] Albuterol Neb [Proventil Neb] 2.5 mg IH TID PRN 02/09/18 [History] Budesonide/Formoterol 160/4.5 [Symbicort 160/4.5] 2 puff IH BIDR 02/09/18 [ History] Glucosamn/Condroitn/C/Mn/[place] [[facility] Glucosamine Chondroit Cplt] 1 tab PO 1200 [History] Levothyroxine Sodium [Levoxyl] 100 mcg PO DAILY 02/09/18 [History] Tiotropium [place] [Spiriva Respimat] 2 puff IH BID 02/09/18 [History] Amiodarone [Cordarone] 400 mg PO BID tablet 02/11/18 [Rx] Metoprolol XL (24 HR) Succ [Toprol Xl] 25 mg PO DAILY tab.er.24h 02/11/18 [Rx] Potassium Chloride 10 meq PO DAILY tab.er.prt 02/11/18 [Rx] 3 Allergy/AdvReac Type Severity Reaction Status Date / Time No Known Allergies Allergy Verified 04/24/17 09:45 All Systems Review: The remainder of the systems were reviewed and are negative Physical Examination Vital Signs, Last 4 Hours Temp Pulse Resp BP Pulse Ox 02/11/18 14:00 60 132/71 02/11/18 13:00 60 124/67 02/11/18 12:31 60 136/67 02/11/18 12:03 98.8 F 60 18 142/75 98 02/11/18 12:00 60 142/75 02/11/18 11:45 58 127/75 02/11/18 11:30 60 138/69 02/11/18 11:15 60 145/68 She is status post bilateral cataract surgery. She is edentulous except for several lower teeth in the front. Neck is supple. Trachea in the midline. No thyromegaly or carotid bruits. Abdomen is benign. She is status post cholecystectomy, hysterectomy and appendectomy. No tenderness, rebound or guarding. Extremities without edema. Cranial nerves, motor and sensory intact. Results 02/10/18 04:12 02/11/18 03:28 Lab Results, Last 24 hours 02/11/18 03:28 Potassium 4.2 Magnesium 1.9 Consult Discharge Plan - Plan Referrals: Tye Arellano MD [Primary Care Provider] - 02/16/18 2:30 am
[2018-02-11 16:08] VITALS: BP 144/78
[2018-02-11] MEDS: traMADol 50 MG TABLET PO PRN (16:51)
[2018-02-12] MEDS ORDERED: *HR* Amiodarone 200 MG TABLET PO SCH (09:00)
== END 2018-02-11 17:20 | disposition critical access hospital (66) | DRG 287 ==
LOC: 2NNU 16:18
PROVIDERS: ADMIT Internal Medicine Cardiovascular Disease; ATTEND Internal Medicine